=== PATIENT | female | born 1995 | race Caucasian/White ===

== ENCOUNTER 2021-02-14 08:33 | Outpatient (REF) | payer OTHER, MEDICAID, SELFPAY ==
--- NOTE | 2021-02-14 08:57 | ECG_ITS ---
Test Reason : TACHYCARDIA Blood Pressure : / mmHG Vent. Rate : 067 BPM Atrial Rate : 067 BPM P-R Int : 128 ms QRS Dur : 076 ms QT Int : 404 ms P-R-T Axes : 051 044 029 degrees QTc Int : 426 ms Normal sinus rhythm Normal ECG No previous ECGs available Referred By: Nory Montanez Electronically Signed By:MIRTA DIAZ
[2021-02-14 09:13] LABS: MANUAL DIFF FLAG NO
[2021-02-14 09:18] LABS: Basophils Percent Auto 0.6 % (0-2); Eosinophils Percent Auto 1.6 % (0-4); Hematocrit 43.1 % (37-47); Hemoglobin 14.1 g/dl (12.0-16.0); Imm Gran Abs Auto 0.01 X10*3/uL (0.00-0.03); Imm Gran Pct Auto 0.2 % (0.0-0.4); Lymphocytes Absolute Auto 2.1 X10*3/uL (1.2-4.9); Lymphocytes Percent Auto 42.6 % (20-40); Mean Corpuscular HGB Conc 32.7 g/dl (31.0-35.0); Mean Corpuscular Hemoglobin 30.5 pg (27.0-33.0); Mean Corpuscular Volume 93.3 fL (80-98); Mean Platelet Volume 10.6 fL (9.4-12.3); Monocytes Percent Auto 7.3 % (2-11); Neutrophils Absolute Auto 2.4 X10*3/uL (2.0-8.3); Neutrophils Percent Auto 47.7 % (45-73); Platelet Count 268 X10*3/uL (160-400); Red Blood Count 4.62 X10*6/uL (4.20-5.50); Red Cell Distribution Width 13.4 % (11.0-16.0); White Blood Count 4.9 X10*3/uL (4.8-10.8)
[2021-02-14 09:19] LABS: Eosinophils Absolute Auto 0.1 X10*3/uL (0.0-0.4); Monocytes Absolute Auto 0.4 X10*3/uL (0.1-1.2)
[2021-02-14 09:50] LABS: Alanine Aminotransferase 22 U/L (0-31); Albumin Level 4.8 g/dL (3.5-5.0); Alkaline Phosphatase 84 U/L (39-117); Anion Gap 12 (12-20); Aspartate Amino Transferase 13 U/L (5-31); Bilirubin Total 1.1 mg/dL (0.0-1.0); Blood Urea Nitrogen 8 mg/dL (9-16); Calcium 9.6 mg/dL (8.4-10.2); Carbon Dioxide 26 mmol/L (22-29); Chloride 109 mmol/L (96-108); Cholesterol 162 mg/dL; Estimated Glomerular Filt Rate > 60; Glucose Fasting 87 mg/dL (60-99); HDL Cholesterol 69 mg/dL; LDL Cholesterol Calculated 80 mg/dl; Potassium 4.5 mmol/L (3.3-5.1); Sodium 142 mmol/L (135-145); Total Protein 7.2 g/dL (6.5-8.0); Triglycerides 67 mg/dL
[2021-02-14 09:53] LABS: Thyroid Stimulating Hormone 1.58 uIU/mL (0.32-4.0)
[2021-02-19 12:42] LABS: Vitamin D 25-OH, D2 <4 ng/mL; Vitamin D 25-OH, D3 27 ng/mL; Vitamin D 25-OH, Total 27 ng/mL (30-100)
== END 2021-02-14 08:34 | disposition home or self-care (01) ==
LOC: HO.LAB 08:33
PROVIDERS: PCP Internal Medicine; Visit Provider Internal Medicine
DX: R00.0 Tachycardia, unspecified (principal); E55.9 Vitamin D deficiency, unspecified; E78.5 Hyperlipidemia, unspecified; D64.9 Anemia, unspecified
CPT/HCPCS: 36415; 80053; 80061; 82306; 84443; 85025; 93005

== ENCOUNTER 2021-06-15 12:58 | Outpatient (REF) | payer OTHER, SELFPAY | END 2021-06-15 12:59 | disposition home or self-care (01) | LOC: HO.LAB 12:58 | PROVIDERS: Visit Provider Internal Medicine | DX: Z20.822 Contact with and (suspected) exposure to COVID-19 (principal) | CPT/HCPCS: C9803; U0003; U0005 ==

== ENCOUNTER 2021-09-04 16:49 | Emergency (ER) | payer OTHER, MEDICAID, SELFPAY ==
[2021-09-04 16:51] VITALS: BP 109/73; PULSE 116; RESP 16; TEMP 36.9; O2SAT 98; BMI 26.6
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
== END 2021-09-04 17:45 | disposition home or self-care (01) ==
PROVIDERS: Absent Provider Internal Medicine; Emergency Provider Emergency Medicine Emergency Medical Services; PCP Internal Medicine
DX: T24.111A Burn of first degree of right thigh, initial encounter (principal); T31.0 Burns involving less than 10% of body surface; M79.652 Pain in left thigh; M79.651 Pain in right thigh; R00.0 Tachycardia, unspecified; X11.8XXA Contact with other hot tap-water, initial encounter; Y93.9 Activity, unspecified; Y92.9 Unspecified place or not applicable; Y99.9 Unspecified external cause status; Z79.899 Other long term (current) drug therapy; Z87.891 Personal history of nicotine dependence
CPT/HCPCS: 99283

== ENCOUNTER 2021-10-14 19:02 | Inpatient (IN) | payer OTHER, MEDICAID, SELFPAY ==
--- NOTE | ~2021-10-14 | US_ITS ---
EXAMINATION: US ABDOMEN LIMITED CLINICAL INFORMATION: Right upper quadrant pain. COMPARISON: None TECHNIQUE: Real-time imaging of the right upper quadrant abdominal viscera. FINDINGS: PANCREAS: The visualized portion of the pancreas head and body are normal, portion of the pancreatic body and tail, not visualized are obscured by bowel gas. LIVER: Normal. The liver is normal in size. The liver contour is normal. Parenchymal echogenicity is normal. No focal hepatic lesion. There is no intrahepatic biliary duct dilatation seen. GALLBLADDER: Gallbladder is packed with gallstones. There is thickening of gallbladder wall, no pericholecystic fluid, cannot entirely rule out the possibility of cholecystitis. COMMON BILE DUCT: Normal in caliber measuring 0.2 cm in diameter. RIGHT KIDNEY: Normal. No hydronephrosis. No renal calculi or focal parenchymal lesions. The kidney measures 11 cm in maximum dimension. FREE FLUID: None. US/US abdomen limited IMPRESSION: Gallbladder is packed with gallstones, there is thickening of gallbladder wall, cannot rule out the possibility of cholecystitis. Common bile duct however is normal 0.2 cm, there is also no pericholecystic fluid. Recommendation: May consider surgical evaluation and/or correlation with HIDA scan for further investigation. (Referring physician staff is being called, to be alerted of the above findings and recommendations.) EM
--- NOTE | ~2021-10-14 | US_ITS ---
EXAMINATION: ULTRASOUND DUPLEX ARTERIAL VENOUS CLINICAL INFORMATION: Abnormal liver function tests. COMPARISON: Grayscale images performed the same day and CT of the abdomen and pelvis 10/14/2021 TECHNIQUE: Doppler color and grayscale evaluation of the liver vasculature including waveform spectral analysis FINDINGS: The extrahepatic, main, right and left portal veins are patent with appropriate hepatopedal flow. The splenic vein is patent with appropriate hepatopedal flow. The right, left and middle hepatic veins are patent with normal waveforms. The IVC is patent with normal waveform. Arteries are patent. Main hepatic artery peak systolic velocity is normal measuring 49 cm/s. US/US duplex arterial venous comp IMPRESSION: Normal liver Doppler exam.
--- NOTE | ~2021-10-14 | CT_ITS ---
EXAMINATION: CT ABDOMEN AND PELVIS WITH CONTRAST CLINICAL INFORMATION: Right upper quadrant pain. Rule out stones CBD stones. COMPARISON: Ultrasound abdomen 10/14/2021 TECHNIQUE: Multidetector volumetric images were obtained from the superior aspect of the liver through the pubic symphysis following administration 85 mL of Omnipaque 350 intravenous contrast. Sagittal and coronal reformatted images were obtained on the technologist's workstation. Oral contrast: No This CT examination was performed using dose optimization techniques as appropriate, variously including the following: *Automated exposure control *Adjustment of mA and/or kV according to patient size (this includes techniques or standardized protocols for targeted exams where dose is matched to indication/reason for exam; i.e. extremities or head) *Use of iterative reconstruction technique DLP: 523 mGy-cm FINDINGS: LUNG BASES: The visualized lung bases are unremarkable. LIVER, GALLBLADDER, AND BILIARY TREE: The liver is normal in size, shape, and attenuation. No focal hepatic lesion or biliary ductal dilatation is present. There are several large gallstones with mild gallbladder wall thickening. The largest gallstone measures 2.2 cm. PANCREAS: Unremarkable. SPLEEN: Unremarkable. ADRENAL GLANDS: Unremarkable. KIDNEYS AND URETERS: The kidneys are normal in size, shape, and attenuation. No hydronephrosis, hydroureter, or calculi seen. No perinephric stranding. BLADDER: Unremarkable. GASTROINTESTINAL TRACT: There is scattered stool and gas seen throughout the colon without any significant distention. The small bowel loops are normal caliber. Appendix is not visualized ABDOMINAL WALL: No significant hernia is appreciated. LYMPH NODES: Normal. VASCULAR: Unremarkable. PELVIC VISCERA: Unremarkable. OSSEOUS STRUCTURES: Unremarkable. CT/CT abdomen pelvis w con IMPRESSION: Cholelithiasis with mild wall thickening. Similar findings were seen on ultrasound abdomen 10/14/2021. There is no intrahepatic or CBD ductal dilatation. Correlate with clinical exam for Acuity. Mild to moderate constipation without obstruction. Fleischner guidelines were followed.
--- NOTE | ~2021-10-14 | MR_ITS ---
EXAMINATION: MR CHOLANGIOPANCREATOGRAPHY CLINICAL INFORMATION: Abdominal pain. COMPARISON: CT of the abdomen and pelvis and right upper quadrant abdominal ultrasound done on 10/14/2021. TECHNIQUE: Multiplanar, multisequential noncontrast MR images of the abdomen/MRCP is obtained. FINDINGS: VISUALIZED LUNG BASES: Unremarkable. LIVER: No focal or diffuse liver abnormality identified. No evidence of any intrahepatic biliary ductal dilatation present. GALLBLADDER, BILIARY TREE: Solitary large approximately 2.3 cm maximum dimension gallstone is present. The sacrum the gallbladder is remarkable for multiple infoldings without evidence of any wall thickening or pericholecystic fluid. Cystic duct appear unremarkable. The common hepatic duct and common bile duct appear normal in caliber. Proximal common bile duct measures 2.6 cm. Specifically, no evidence of any intraductal filling defect to suspect choledocholithiasis seen. PANCREAS: Unremarkable on this nonenhanced study. Pancreatic duct is decompressed. SPLEEN: Unremarkable on this nonenhanced study. ADRENAL GLANDS AND KIDNEYS: There is no adrenal mass present on either side. Both kidneys appear symmetric and appears unremarkable this nonenhanced study. URETERS AND BLADDER: Visualized part of both ureters appear decompressed. The bladder was not included within the [id number] and accordingly not evaluated. BOWEL LOOPS: The visualized bowel loops appear decompressed. LYMPHOVASCULAR STRUCTURES: Unremarkable. MR/MR MRCP IMPRESSION: Solitary 2.3 cm maximum dimension gallstone is present without any MR evidence of acute cholecystitis or biliary obstruction. Specifically, the entire biliary tree is decompressed and no evidence of any choledocholithiasis present.
--- NOTE | ~2021-10-14 | NM_ITS ---
EXAMINATION: HIDA SCAN. CLINICAL INFORMATION: Elevated LFTs. Cholelithiasis. COMPARISON: None TECHNIQUE: Following intravenous administration of 5 mCi of 99m technetium mebrofenin, imaging over the right upper quadrant was obtained up to 60 minutes. FINDINGS: There is normal hepatic uptake with visualization of gallbladder by 34 minutes consistent with patent cystic duct. Small bowel is visualized by 36 minutes consistent with patent CBD. NM/NM hepatobiliary wo pharm IMPRESSION: Normal HIDA scan with patent cystic duct and patent common bile duct.
--- NOTE | ~2021-10-14 | US_ITS ---
EXAMINATION: US ABDOMEN COMPLETE CLINICAL INFORMATION: Right upper quadrant pain. COMPARISON: Prior study October 14, 2021 TECHNIQUE: Real-time imaging of the abdominal viscera. FINDINGS: PANCREAS: The visualized portion of the pancreas head and body are normal, portion of the pancreatic body and tail, not visualized are obscured by bowel gas. ABDOMINAL AORTA: The proximal, mid, and distal segments are normal in caliber. INFERIOR VENA CAVA: Visualized portions are normal. LIVER: Normal. The liver is normal in size. The liver contour is normal. Parenchymal echogenicity is normal. No focal hepatic lesion. There is no intrahepatic biliary duct dilatation seen. GALLBLADDER: There is no thickening of gallbladder wall, low attenuation suggesting wall edema, highly suspicious for acute cholecystitis. There is tenderness pressing on the gallbladder positive ultrasound Mariano sign. Multiple gallstones. COMMON BILE DUCT: Normal in caliber measuring 0.7 cm in diameter. RIGHT KIDNEY: Normal. No hydronephrosis. No renal calculi or focal parenchymal lesions. The kidney measures 11.3 cm in maximum dimension. Left kidney is unremarkable measuring 11.9 cm. Spleen homogeneous 12.7 cm. Borderline enlarged. FREE FLUID: None. US/US abdomen complete IMPRESSION: *ACUTE CHOLECYSTITIS, there are multiple gallstones, there is thickening of the gallbladder wall, there is wall edema, there is tenderness pressing on the gallbladder Mariano sign, mild dilatation of the common bile duct, these findings suggest acute cholecystitis. Urgent Surgical consultation warranted. *Borderline splenomegaly. (Referring physician staff is being called, to be alerted of the above findings and recommendations.) PRIYA
[2021-10-14 19:07] VITALS: BP 107/62; PULSE 78; RESP 19; TEMP 36.5; O2SAT 98; BMI 25.5
--- NOTE | 2021-10-14 19:09 | PC.NURSE ---
Took report from Meredith to assume care of PT.
[2021-10-14 19:16] LABS: MANUAL DIFF FLAG NO
[2021-10-14 19:17] LABS: Basophils Percent Auto 0.8 % (0-2); Eosinophils Absolute Auto 0.1 X10*3/uL (0.0-0.4); Eosinophils Percent Auto 2.5 % (0-4); Hematocrit 40.7 % (37.0-47.0); Hemoglobin 13.6 g/dl (12.0-16.0); Imm Gran Abs Auto 0.01 X10*3/uL (0.00-0.03); Imm Gran Pct Auto 0.3 % (0.0-0.4); Lymphocytes Absolute Auto 1.2 X10*3/uL (1.2-4.9); Lymphocytes Percent Auto 33.3 % (20-40); Mean Corpuscular HGB Conc 33.4 g/dl (31.0-35.0); Mean Corpuscular Hemoglobin 30.8 pg (27.0-33.0); Mean Corpuscular Volume 92.1 fL (80.0-98.0); Monocytes Absolute Auto 0.4 X10*3/uL (0.1-1.2); Monocytes Percent Auto 11.2 % (2-11); Neutrophils Absolute Auto 1.9 x10*3/uL (2.0-8.3); Neutrophils Percent Auto 51.9 % (45-73); Platelet Count 238 X10*3/uL (160-400); Red Blood Count 4.42 X10*6/uL (4.20-5.50); Red Cell Distribution Width 13.2 % (11.0-16.0); White Blood Count 3.7 X10*3/uL (4.8-10.8)
[2021-10-14 19:28] LABS: Appearance Urine CLOUDY; Color Urine YELLOW; Glucose Urine UA NEG (NEG); Leukocyte Esterase Urine NEG (NEG); Nitrite Urine NEG (NEG); UACC Culture Trigger NO; Urine Blood 3+ (NEG); Urine Ketones 5 MG/DL (NEG); Urine Protein 1+ MG/DL (NEG-TRACE)
[2021-10-14 19:31] LABS: UPreg QC Valid YES; Urine Pregnancy NEGATIVE (NEGATIVE)
[2021-10-14 19:33] LABS: RBC Urine TNTC /HPF (0); WBC Urine 0-2 /HPF (0-4)
[2021-10-14 19:34] LABS: Amorphous Sediment Urine 2+ /LPF; Bacteria Urine TRACE /LPF
[2021-10-14 19:36] LABS: Alanine Aminotransferase 1490 U/L (0-31); Albumin Level 4.4 g/dL (3.5-5.0); Alkaline Phosphatase 150 U/L (39-117); Anion Gap 9 (12-20); Aspartate Amino Transferase 976 U/L (5-31); Bilirubin Total 3.2 mg/dL (0.0-1.0); Blood Urea Nitrogen 9 mg/dL (9-16); Calcium 9.7 mg/dL (8.4-10.2); Carbon Dioxide 30 mmol/L (22-29); Chloride 107 mmol/L (96-108); Creatinine Clr Calc Pharmacy 111.1; Estimated Glomerular Filt Rate > 60; Glucose Random 96 mg/dL (60-115); Potassium 3.9 mmol/L (3.3-5.1); Sodium 142 mmol/L (135-145)
[2021-10-14 19:42] LABS: Lipase 21 U/L (8-78)
[2021-10-14 20:05] VITALS: BP 106/69; PULSE 75; RESP 18; O2SAT 99
[2021-10-14 20:11] LABS: COVID-19 Test Negative (Negative); IDNOW Serial# 16C4AD1C
[2021-10-14 20:12] LABS: Influenza A Negative (Negative); Influenza B2 Negative (Negative)
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
[2021-10-14 20:32] VITALS: RESP 14
[2021-10-14] MEDS: Morphine Sulfate 4 MG/ML CARTRIDGE IVPUSH (20:32)
[2021-10-14] MEDS: 0.9 % Sodium Chloride 1,000 ML 999 ML IV (20:32)
[2021-10-14] MEDS: ondansetron HCL 4 MG/2 ML VIAL IVPUSH (20:32)
[2021-10-14] MEDS: iohexoL 350 MG/ML 100 ML INFUS..BTL IV (21:23)
--- NOTE | 2021-10-14 21:44 | PC.NURSE ---
Pt resting, pain/nausea resolving with morphine and zofran.
[2021-10-14 23:01] VITALS: BP 101/64; PULSE 68; RESP 18; TEMP 36.4; O2SAT 100
[2021-10-14] MEDS: Piperacillin Sodium/Tazobactam 3.375 GM in 0.9 % Sodium Chloride 50 ML IV (23:46)
--- NOTE | 2021-10-14 23:54 | P.HPHOSP_ITS ---
History of Present Illness Date of Service: 10/14/21 Chief Complaint: abd pain 26-year-old female with no significant past medical history presents to the hospital with complaints of epigastric and right upper quadrant abdominal pain. Patient reports that she has had this intermittent pain after eating heavy fatty foods but usually resolves after she takes Pepto-Bismol. Last night the pain started after she had dominoes. Pain is epigastric, 9/10, radiating to the right upper quadrant, as well as right-sided back, she reports nausea with no vomiting and has been feeling very weak and nauseous all day today with low oral intake, therefore decided to come to the hospital. Patient reports no chest pain no shortness of breath, no cough, no urinary symptoms and no lower extremity edema. On arrival to the ED patient hemodynamically stable with no significant abnormal vitals Labs are significant for BC count of 3.7, total bilirubin of 3.2, AST of 976, ALT of 14 90, alk-phos of 150, UA is negative for any infection, lipase of 21, Salicylate of less than 0.5, an estimate of in less than 1, abdominal ultrasound shows gallbladder is packed with gallstones, others thickening of gallbladder wall get rule out the possibility of cholecystitis Abdominal pelvic CT shows cholelithiasis with mild wall thickening similar findings were seen on ultrasound, no intrahepatic or CBD ductal dilatation, GI and general surgery consult patient will be admitted for further management Review of Systems Review of Systems: Yes all other systems are reviewed and are negative [facility] Medical History GERD (gastroesophageal reflux disease) Meniere's disease of right ear Mild major depression, single episode Tachycardia Family History Mother Arthritis Father No problems noted. Surgical History History of appendectomy Previous section Social History Housing: Apartment Alcohol intake: current Alcohol intake frequency: holidays/special occasions only Patient Tobacco Use Status: Former Tobacco user Tobacco use type: Cigarette Smoked in Last 30 Days: No e-Cigarette/Vaping Use: Never Used Second Hand Smoke Exposure: No Use of substances other than those prescribed or required for medical reasons: No Any prior treatment program specific to substance use: No Advance Directives: No Advance Directives Information Provided: No service: No Current occupational status: employed and unemployed Current occupational exposures/hazards: No Meds Allergies Allergy/AdvReac Type Severity Reaction Status Date / Time ciprofloxacin [From CIPRO] Allergy Intermediate TACHYCARDIA Verified 07/12/21 11:02 Sulfa (Sulfonamide Allergy Intermediate shortness Verified 07/12/21 11:02 Antibiotics) of breath sulfamethoxazole Allergy Unknown Verified 10/14/21 19:10 [From Bactrim] trimethoprim [From Bactrim] Allergy Unknown Verified 10/14/21 19:10 fish/shellfish Allergy Severe anaphylaxis Uncoded 04/21/21 13:27 SEAFOOD Allergy Severe ANAPHALXYS Uncoded 04/21/21 13:27 Active Medications: Current Medications Piperacillin Sod/Tazobactam (Sod 3.375 gm/ Sodium Chloride) 50 mls @ 100 mls/hr IV ONCE ONE Stop: 10/15/21 00:04 Last Admin: 10/14/21 23:46 Dose: 100 mls/hr Documented by: Pharmacy Consult (Consult Rx Perform Med Rec) 1 each MISCELLANE ONCE PRN PRN Reason: Consult order Physical Exam Vital Signs and Narrative: Vital Signs: Last Vital Signs Temp 97.6 F 10/14/21 23:01 Pulse 68 10/14/21 23:01 Resp 18 10/14/21 23:01 BP 101/64 10/14/21 23:01 Pulse Ox 100 10/14/21 23:01 BMI result Body Mass Index 25.5 Const: General: cooperative and no acute distress Orientation/consciousness: patient oriented x3 Eyes: General: appearance normal, both eyes and all related structures Pupils: Equal, round and reactive pupils present Resp: Effort & Inspection: normal respiratory effort Auscultation: clear to auscultation bilaterally Cardio: Rate: regular rate Rhythm: regular rhythm GI: Other: Abdomen is soft, tender in the right upper quadrant Mariano sign positive Skin: General skin exam: no rashes or lesions noted Neuro: General: patient oriented x3 Cranial nerves: Yes Equal, round and reactive pupils present Cognition (Neuro): normal cognition Extrem: General: Yes normal to inspection and Yes no pedal edema Results Labs CBC and Chem 7: 10/14/21 19:10 10/14/21 19:10 Labs: Laboratory Results - last 24 hr 10/14/21 10/14/21 10/14/21 19:10 19:10 19:15 MCV 92.1 MCH 30.8 MCHC 33.4 RDW 13.2 Plt Count 238 MPV 10.0 Immature Gran % (Auto) 0.3 Neut % (Auto) 51.9 Lymph % (Auto) 33.3 [place] % (Auto) 11.2 H Eos % (Auto) 2.5 Baso % (Auto) 0.8 Lymph # (Auto) 1.2 [place] # (Auto) 0.4 Eos # (Auto) 0.1 Baso # (Auto) 0.0 Abs Immat Gran (auto) 0.01 Absolute Neuts (auto) 1.9 L Absolute Nucleated RBC 0.000 Nucleated RBC % (auto) 0.0 Anion Gap 9 L Estim Creat Clear Calc 111.1 Estimated GFR > 60 Random Glucose 96 Calcium 9.7 Total Bilirubin 3.2 H AST 976 H ALT 1490 H Alkaline Phosphatase 150 H D Total Protein 7.0 Albumin 4.4 Lipase 21 Urine Color YELLOW Urine Appearance CLOUDY Urine pH 7.0 Ur Specific [place] 1.020 Urine Protein 1+ H Urine Glucose (UA) NEG Urine Ketones 5 Urine Blood 3+ H Urine Nitrite NEG Ur Leukocyte Esterase NEG Urine RBC TNTC H Urine WBC 0-2 Ur Squamous Epith Cells NONE Amorphous Sediment 2+ Urine Bacteria TRACE Urine Test COVID-19 (EDWINA) COVID-19 Clin Com Influenza Type A (JOLYNN) Influenza Type B (JOLYNN) Influenza A & B Note 10/14/21 10/14/21 10/14/21 19:15 19:49 19:49 MCV MCH MCHC RDW Plt Count MPV Immature Gran % (Auto) Neut % (Auto) Lymph % (Auto) [place] % (Auto) Eos % (Auto) Baso % (Auto) Lymph # (Auto) [place] # (Auto) Eos # (Auto) Baso # (Auto) Abs Immat Gran (auto) Absolute Neuts (auto) Absolute Nucleated RBC Nucleated RBC % (auto) Anion Gap Estim Creat Clear Calc Estimated GFR Random Glucose Calcium Total Bilirubin AST ALT Alkaline Phosphatase Total Protein Albumin Lipase Urine Color Urine Appearance Urine pH Ur Specific [place] Urine Protein Urine Glucose (UA) Urine Ketones Urine Blood Urine Nitrite Ur Leukocyte Esterase Urine RBC Urine WBC Ur Squamous Epith Cells Amorphous Sediment Urine Bacteria Urine Test NEGATIVE COVID-19 (EDWINA) Negative COVID-19 Clin Com See Note Influenza Type A (JOLYNN) Negative Influenza Type B (JOLYNN) Negative Influenza A & B Note See Note Imaging Radiologist's Impressions: Impressions Abdomen Ultrasound 10/14/21 20:31 IMPRESSION: Gallbladder is packed with gallstones, there is thickening of gallbladder wall, cannot rule out the possibility of cholecystitis. Common bile duct however is normal 0.2 cm, there is also no pericholecystic fluid. Recommendation: May consider surgical evaluation and/or correlation with HIDA scan for further investigation. (Referring physician staff is being called, to be alerted of the above findings and recommendations.) EM Abdomen/Pelvis CT 10/14/21 21:23 IMPRESSION: Cholelithiasis with mild wall thickening. Similar findings were seen on ultrasound abdomen 10/14/2021. There is no intrahepatic or CBD ductal dilatation. Correlate with clinical exam for Acuity. Mild to moderate constipation without obstruction. Fleischner guidelines were followed. Assessment and Plan (1) Cholelithiasis: Status: Acute (2) Transaminitis: Status: Acute (3) Abdominal pain: Status: Acute (4) Cholecystitis: Status: Acute Plan 26-year-old female with no significant past medical history presents to the hospital with abdominal pain found to have transaminitis as well as evidence of cholecystitis # acute cholecystitis - has right upper quadrant pain, pain following fatty food, Mariano sign positive - evidence of gallbladder wall thickness on ultrasound as well as cholelithiasis - will treat with Zosyn - follow cultures - general surgery consulted and informed # transaminitis - although bleed multifactorial - secondary to biliary disease in the setting of cholecystitis as well as poss ible underlying liver disease although less likely - hepatitis panel pending, Tylenol and as salicylate levels normal - follow CMP DVT prophylaxis: SCDs patient of possible surgical intervention Patient requires minimal 2 night hospital stay for IV antibiotics and possible need for surgical intervention Quality Stroke Does the patient have a stroke diagnosis?: No VTE Prior VTE?: No VTE Risk Level:: Medical - moderate - high VTE Device Contraindication: N/A - Device Ordered VTE Drug Contraindication: Treatment Not Indicated
[2021-10-15] VITALS (7 sets, daily range): BP systolic 96–148; BP diastolic 62–78; PULSE 61–78; RESP 14–20; TEMP 36.2–37.1; O2SAT 96–100
[2021-10-15] MEDS: 0.9 % Sodium Chloride 1,000 ML 100 ML IVCONT ×2 (00:26→20:08)
[2021-10-15] MEDS: Morphine Sulfate 4 MG/ML CARTRIDGE IVPUSH (00:26)
[2021-10-15 01:30] LABS: Acetaminophen LAB < 1 mcg/mL (<30); Salicylate < 5.0 mg/dL (15-30)
[2021-10-15 06:04] LABS: MANUAL DIFF FLAG NO
[2021-10-15 06:17] LABS: Basophils Percent Auto 0.7 % (0-2); Eosinophils Absolute Auto 0.1 X10*3/uL (0.0-0.4); Eosinophils Percent Auto 3.5 % (0-4); Hematocrit 34.6 % (37.0-47.0); Hemoglobin 11.3 g/dl (12.0-16.0); Lymphocytes Absolute Auto 1.5 X10*3/uL (1.2-4.9); Lymphocytes Percent Auto 50.7 % (20-40); Mean Corpuscular HGB Conc 32.7 g/dl (31.0-35.0); Mean Corpuscular Hemoglobin 31.1 pg (27.0-33.0); Mean Corpuscular Volume 95.3 fL (80.0-98.0); Mean Platelet Volume 10.6 fL (9.4-12.3); Monocytes Absolute Auto 0.3 X10*3/uL (0.1-1.2); Monocytes Percent Auto 10.4 % (2-11); Neutrophils Percent Auto 34.7 % (45-73); Platelet Count 190 X10*3/uL (160-400); Red Blood Count 3.63 X10*6/uL (4.20-5.50); Red Cell Distribution Width 13.2 % (11.0-16.0); White Blood Count 2.9 X10*3/uL (4.8-10.8)
[2021-10-15] MEDS: Piperacillin Sodium/Tazobactam 3.375 GM in 0.9 % Sodium Chloride 50 ML IV ×3 (06:24→20:08)
[2021-10-15 06:45] LABS: Alanine Aminotransferase 944 U/L (0-31); Albumin Level 3.6 g/dL (3.5-5.0); Alkaline Phosphatase 124 U/L (39-117); Anion Gap 8 (12-20); Aspartate Amino Transferase 451 U/L (5-31); Bilirubin Total 1.7 mg/dL (0.0-1.0); Blood Urea Nitrogen 9 mg/dL (9-16); Calcium 8.1 mg/dL (8.4-10.2); Carbon Dioxide 26 mmol/L (22-29); Chloride 113 mmol/L (96-108); Creatinine Clr Calc Pharmacy 124.8; Estimated Glomerular Filt Rate > 60; Glucose Random 84 mg/dL (60-115); Potassium 3.8 mmol/L (3.3-5.1); Sodium 143 mmol/L (135-145); Total Protein 5.5 g/dL (6.5-8.0)
--- NOTE | 2021-10-15 07:48 | HO.PM.IMPN ---
Subjective Subjective Date of Service: 10/15/21 Interval History: acute cholecystitis Review of Systems Still has significant abdominal pain, but denies any vomiting has nausea. She said she vomiting at home. Decreased p.o. intake. Physical Exam Vital Signs: Vital Signs: Last Vital Signs Temp 97.4 F 10/15/21 07:41 Pulse 74 10/15/21 07:41 Resp 20 10/15/21 07:41 BP 114/67 10/15/21 07:41 Pulse Ox 100 10/15/21 07:41 BMI result Body Mass Index 25.5 Appearance: Alert.? Oriented X3.? not in distress.? Eyes: Pupils equal, round and reactive to light.? Sclera nonicteric.? ENT: Pharynx normal.? Moist mucous membranes. cvs: rrr, [id number] , no murmur res: clear to auscultation ,no rhonchii or wheezing abd: no rebound or guarding ,ruq pain, bs present. ext pulses present , no cyanosis . neuro: axo3 , nonfocal. Objective Data Active Medications Acetaminophen (Acetaminophen 325 Mg Tablet) 650 mg PO Q6H PRN PRN Reason: Pain, Mild (Pain Scale 1-3) Piperacillin Sod/Tazobactam (Sod 3.375 gm/ Sodium Chloride) 50 mls @ 100 mls/hr IV Q6H [facility] Last Admin: 10/15/21 06:24 Dose: 100 mls/hr Documented by: NICKY Sodium Chloride (Ns) 1,000 mls @ 100 mls/hr IVCONT .Q10H [facility] Last Admin: 10/15/21 00:26 Dose: 100 mls/hr Documented by: TJ Morphine Sulfate (Morphine Sulfate 4 Mg/Ml Cartridge) 4 mg IVPUSH Q4H PRN; Protocol PRN Reason: Pain, Severe (Pain Scale 7-10) Last Admin: 10/15/21 00:26 Dose: 4 mg Documented by: TJ Ondansetron HCl (Ondansetron Hcl 4 Mg/2 Ml Vial) 4 mg IVPUSH Q8H PRN PRN Reason: Nausea and Vomiting Pharmacy Consult (Consult Rx Perform Med Rec) 1 each MISCELLANE ONCE PRN PRN Reason: Consult order Sodium Chloride (0.9 % Sodium Chloride Flush 3 Ml Syringe) 3 ml IVFLUSH QSHIFT [facility] Last Admin: 10/15/21 00:32 Dose: Not Given Documented by: TJ Non-Admin Reason: Pt getting 1 L ns @100ml/hr Labs CBC & Chem 7: 10/15/21 05:49 10/15/21 05:49 Labs: Laboratory Results - last 24 hr 10/14/21 10/14/21 10/14/21 19:10 19:10 19:15 MCV 92.1 MCH 30.8 MCHC 33.4 RDW 13.2 Plt Count 238 MPV 10.0 Immature Gran % (Auto) 0.3 Neut % (Auto) 51.9 Lymph % (Auto) 33.3 [place] % (Auto) 11.2 H Eos % (Auto) 2.5 Baso % (Auto) 0.8 Lymph # (Auto) 1.2 [place] # (Auto) 0.4 Eos # (Auto) 0.1 Baso # (Auto) 0.0 Abs Immat Gran (auto) 0.01 Absolute Neuts (auto) 1.9 L Absolute Nucleated RBC 0.000 Nucleated RBC % (auto) 0.0 Anion Gap 9 L Estim Creat Clear Calc 111.1 Estimated GFR > 60 Random Glucose 96 Calcium 9.7 Total Bilirubin 3.2 H AST 976 H ALT 1490 H Alkaline Phosphatase 150 H D Total Protein 7.0 Albumin 4.4 Lipase 21 Urine Color YELLOW Urine Appearance CLOUDY Urine pH 7.0 Ur Specific [place] 1.020 Urine Protein 1+ H Urine Glucose (UA) NEG Urine Ketones 5 Urine Blood 3+ H Urine Nitrite NEG Ur Leukocyte Esterase NEG Urine RBC TNTC H Urine WBC 0-2 Ur Squamous Epith Cells NONE Amorphous Sediment 2+ Urine Bacteria TRACE Urine Test Salicylates Acetaminophen COVID-19 (EDWINA) COVID-19 Clin Com Influenza Type A (JOLYNN) Influenza Type B (JOLYNN) Influenza A & B Note 10/14/21 10/14/21 10/14/21 19:15 19:49 19:49 MCV MCH MCHC RDW Plt Count MPV Immature Gran % (Auto) Neut % (Auto) Lymph % (Auto) [place] % (Auto) Eos % (Auto) Baso % (Auto) Lymph # (Auto) [place] # (Auto) Eos # (Auto) Baso # (Auto) Abs Immat Gran (auto) Absolute Neuts (auto) Absolute Nucleated RBC Nucleated RBC % (auto) Anion Gap Estim Creat Clear Calc Estimated GFR Random Glucose Calcium Total Bilirubin AST ALT Alkaline Phosphatase Total Protein Albumin Lipase Urine Color Urine Appearance Urine pH Ur Specific [place] Urine Protein Urine Glucose (UA) Urine Ketones Urine Blood Urine Nitrite Ur Leukocyte Esterase Urine RBC Urine WBC Ur Squamous Epith Cells Amorphous Sediment Urine Bacteria Urine Test NEGATIVE Salicylates Acetaminophen COVID-19 (EDWINA) Negative COVID-19 Clin Com See Note Influenza Type A (JOLYNN) Negative Influenza Type B (JOLYNN) Negative Influenza A & B Note See Note 10/15/21 10/15/21 10/15/21 01:03 05:49 05:49 MCV 95.3 MCH 31.1 MCHC 32.7 RDW 13.2 Plt Count 190 MPV 10.6 Immature Gran % (Auto) 0.0 Neut % (Auto) 34.7 L Lymph % (Auto) 50.7 H [place] % (Auto) 10.4 Eos % (Auto) 3.5 Baso % (Auto) 0.7 Lymph # (Auto) 1.5 [place] # (Auto) 0.3 Eos # (Auto) 0.1 Baso # (Auto) 0.0 Abs Immat Gran (auto) 0.00 Absolute Neuts (auto) 1.0 L Absolute Nucleated RBC 0.000 Nucleated RBC % (auto) 0.0 Anion Gap 8 L Estim Creat Clear Calc 124.8 Estimated GFR > 60 Random Glucose 84 Calcium 8.1 L D Total Bilirubin 1.7 H AST 451 H ALT 944 H Alkaline Phosphatase 124 H Total Protein 5.5 L D Albumin 3.6 Lipase Urine Color Urine Appearance Urine pH Ur Specific [place] Urine Protein Urine Glucose (UA) Urine Ketones Urine Blood Urine Nitrite Ur Leukocyte Esterase Urine RBC Urine WBC Ur Squamous Epith Cells Amorphous Sediment Urine Bacteria Urine Test Salicylates < 5.0 L Acetaminophen < 1 COVID-19 (EDWINA) COVID-19 Clin Com Influenza Type A (JOLYNN) Influenza Type B (JOLYNN) Influenza A & B Note Assessment and Plan (1) Cholecystitis: Status: Acute (2) Abdominal pain: Status: Acute Plan 26-year-old female with no significant past medical history presents to the hospital with abdominal pain found to have transaminitis as well as evidence of cholecystitis acute cholecystitis - has right upper quadrant pain, pain following fatty food, Mariano sign positive - evidence of gallbladder wall thickness on ultrasound as well as cholelithiasis - will treat with Zosyn,follow cultures - general surgery consulted -added mrcp. transaminitis - although bleed multifactorial - secondary to biliary disease in the setting of cholecystitis as well as possible underlying liver disease although less likely - hepatitis panel pending, Tylenol and as salicylate levels normal - follow CMP DVT prophylaxis:? SCDs patient of possible surgical intervention Quality Stroke Does the patient have a stroke diagnosis?: No VTE Prior VTE?: No VTE Risk Level:: Medical - moderate - high VTE Device Contraindication: N/A - Device Ordered VTE Drug Contraindication: Treatment Not Indicated
[2021-10-15] MEDS: Acetaminophen 325 MG TABLET 650 MG PO (09:20)
--- NOTE | 2021-10-15 09:41 | MHC.CM.PN ---
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
--- NOTE | 2021-10-15 11:00 | PM.GICN ---
History of Present Illness Data of Consult Service Date: 10/15/21 Requesting physician: Anoop Bear Primary Care Provider: Nory Montanez MD HPI Reason for consult: abdo pain, abn LFT 26-year-old female with hx of appendectomy, depression, and c section who I am seeing for assessment for abdominal pain and abn LFT. She had 9/10 colicky epigastric pain (like labor pain ) after eating Pizza 1 d ago with radiation to RUQ and into the back, no relieving factors, . Associated with nausea, poor appetite and malaise but no fever or vomiting. denies chest pain and no shortness of breath, no cough, no urinary symptoms. No jaundice. She has had recurrent bouts of pain like this in the past after eating fatty meals but usu resolved with pepto-bismol which did not help this time. Labs revealed total bilirubin of 3.2, AST of 976, ALT of 14 90, alk-phos of 150, nml lipase. acetaminophen level was neg. Imaging: abdominal ultrasound: gallbladder packed with gallstones, thickening of gallbladder wall Abdominal pelvic CT: cholelithiasis, no intrahepatic or CBD ductal dilatation, Review of Systems Review of Systems: Constitutional : No Weight loss, No Fever, No Chills ENT/Mouth : No sore throat, No Rhinorrhea Eyes: No Swelling, No Redness Cardiovascular : No Chest Pain, No SOB, No Edema Respiratory : No Cough, No Sputum, No Wheezing Gastrointestinal : see HPI Genitourinary : NO Dysuria, No Urinary Frequency, No Hematuria, No Urgency Musculoskeletal : No joint pain, No Myalgias, No Joint Swelling Skin : No Skin Lesions, No rash Neuro : No Weakness, No Numbness, No Dizziness, No Headache Psych : No Anxiety/Panic, No Depression Heme/Lymph: No Bruising, No Lymphadenopathy Endocrine : No Polyuria, No Polydipsia All other systems reviewed and are negative. [facility] Past Medical History Medical History GERD (gastroesophageal reflux disease) Meniere's disease of right ear Mild major depression, single episode Tachycardia Family History Family History Mother Arthritis Father No problems noted. Surgical History Surgical History History of appendectomy Previous section Social History Social History Household Members: Unknown / Unable to assess Housing: Unknown / Unable to assess Do you presently have visiting nurse or other home services: No Unable to assess alcohol history related to: Unknown Alcohol intake: current Alcohol intake frequency: holidays/special occasions only Patient Tobacco Use Status: Former Tobacco user Tobacco use type: Cigarette e-Cigarette/Vaping Use: Never Used Second Hand Smoke Exposure: No service: No Current occupational status: employed Current occupational exposures/hazards: No Meds Allergies Allergy/AdvReac Type Severity Reaction Status Date / Time ciprofloxacin [From CIPRO] Allergy Intermediate TACHYCARDIA Verified 07/12/21 11:02 Sulfa (Sulfonamide Allergy Intermediate shortness Verified 07/12/21 11:02 Antibiotics) of breath sulfamethoxazole Allergy Unknown Verified 10/14/21 19:10 [From Bactrim] trimethoprim [From Bactrim] Allergy Unknown Verified 10/14/21 19:10 fish/shellfish Allergy Severe anaphylaxis Uncoded 04/21/21 13:27 SEAFOOD Allergy Severe ANAPHALXYS Uncoded 04/21/21 13:27 Active Medications: Current Medications Acetaminophen (Acetaminophen 325 Mg Tablet) 650 mg PO Q6H PRN PRN Reason: Pain, Mild (Pain Scale 1-3) Last Admin: 10/15/21 09:20 Dose: 650 mg Documented by: Piperacillin Sod/Tazobactam (Sod 3.375 gm/ Sodium Chloride) 50 mls @ 100 mls/hr IV [facility] Last Infusion: 10/15/21 10:16 Dose: Infused Documented by: Sodium Chloride (Ns) 1,000 mls @ 100 mls/hr IVCONT .Q10H [facility] Last Admin: 10/15/21 00:26 Dose: 100 mls/hr Documented by: Morphine Sulfate (Morphine Sulfate 4 Mg/Ml Cartridge) 4 mg IVPUSH Q4H PRN; Protocol PRN Reason: Pain, Severe (Pain Scale 7-10) Last Admin: 10/15/21 00:26 Dose: 4 mg Documented by: Ondansetron HCl (Ondansetron Hcl 4 Mg/2 Ml Vial) 4 mg IVPUSH Q8H PRN PRN Reason: Nausea and Vomiting Pharmacy Consult (Consult Rx Perform Med Rec) 1 each MISCELLANE ONCE PRN PRN Reason: Consult order Sodium Chloride (0.9 % Sodium Chloride Flush 3 Ml [facility]) [facility] Last Admin: 10/15/21 09:14 Dose: Not Given Documented by: Home Medications Medication Instructions Recorded Confirmed Last Taken Type No Known Home Meds 10/15/21 10/15/21 Unknown History Physical Exam Vital Signs: Vital Signs: Last Vital Signs Temp 97.4 F 10/15/21 07:41 Pulse 74 10/15/21 07:41 Resp 20 10/15/21 07:41 BP 114/67 10/15/21 07:41 Pulse Ox 100 10/15/21 07:41 BMI result Body Mass Index 25.5 Const: General: cooperative and no acute distress Orientation/consciousness: patient oriented x3 Eyes: General: appearance normal, both eyes and all related structures Pupils: Equal, round and reactive pupils present Resp: Effort & Inspection: normal respiratory effort Auscultation: clear to auscultation bilaterally Cardio: Rate: regular rate Rhythm: regular rhythm GI: Other: Abdomen is soft, tender in the right upper quadrant Mariano sign positive Inspection: Yes normal to inspection Palpation (GI): Soft to palpation Auscultation: normal bowel sounds Skin: General skin exam: no rashes or lesions noted Neuro: General: patient oriented x3 Cranial nerves: Yes Equal, round and reactive pupils present Cognition (Neuro): normal cognition Extrem: General: Yes normal to inspection and Yes no pedal edema Psych: Appearance: grossly normal Results Labs CBC & Chem 7: 10/15/21 05:49 10/15/21 05:49 Labs: Short CBC 10/14/21 10/15/21 Range/Units 19:10 05:49 WBC 3.7 L 2.9 L (4.8-10.8) X10*3/uL Hgb 13.6 11.3 L (12.0-16.0) g/dl Hct 40.7 34.6 L (37.0-47.0) % Plt Count 238 190 (160-400) X10*3/uL BMP 10/14/21 10/15/21 19:10 05:49 Sodium 142 143 Potassium 3.9 3.8 Chloride 107 113 H Carbon Dioxide 30 H 26 BUN 9 9 Creatinine 0.82 0.73 Calcium 9.7 8.1 L D Liver Function 10/14/21 10/15/21 Range/Units 19:10 05:49 Total Bilirubin 3.2 H 1.7 H (0.0-1.0) mg/dL AST 976 H 451 H (5-31) U/L ALT 1490 H 944 H (0-31) U/L Alkaline Phosphatase 150 H D 124 H (39-117) U/L Albumin 4.4 3.6 (3.5-5.0) g/dL Urine 10/14/21 Range/Units 19:15 Urine Color YELLOW Urine Appearance CLOUDY Urine pH 7.0 (5.0-8.0) Ur Specific [place] 1.020 (1.005-1.025) Urine Protein 1+ H (NEG-TRACE) MG/DL Urine Glucose (UA) NEG (NEG) MG/DL Imaging CT scan - abdomen: Attestation: I personally reviewed and interpreted this imaging study as follows: (gallstones, thickened GB, fluid around GB) Assessment and Plan (1) Cholecystitis: Status: Acute (2) Abdominal pain: Status: Acute Plan 1/ hx is most consistent with cholecystitis, LFT are high but can be seen if there is contiguous norman hepatic inflammation from the gallbladder. Other possibility would be Mirizzi syndrome, or choledocholithiasis passing thru the CBD, but CBD diameter is normal making this unlikely. less likely ddx; AIH< budd chiari syndrome, acute wilsons disease, infectious hepatitis PLAN: 1/ HIDA scan 2/ if neg then further work up with serologies, maybe MRCP 3/ Hep A,B,C serologies are pending Procedures Date of Service Date of Service: 10/15/21
--- NOTE | 2021-10-15 14:11 | PM.CNGS ---
History of Present Illness Consult details Consult date: 10/15/21 Requesting physician: Anoop Bear Narrative: The pt is a 26 year old female who came in to [facility] ER yesterday with abdominal pain and nausea after eating some pizza the night before. the pt denies knowing that she has gallbladder issues but has had symptoms somewhat consistent with biliary colic in the past. Here a CT scan showed ? thickening of the GB wall and multiple stones, no fluids no ductal dilatation. Ultrasound then showed large stone no ductal dilatation some thickness of the wall but no fluid. The pts labs were remarkable for elevated LFTs quite significant and normal wbc or slightly low. She had tenderness in the ruq. She works as a dental hygenist and she was stuck by a dirty needle about 1-2 months ago, the pt was reported to be clean . She did have Hep B titers checked about a year ago and they were low and she was told she would need a booster but that never happened. She has been eating all types of food but denies having anything unusual or suspicious. pt recently was treated for a uti and it seems she may have had 1 week of macrobid/macrodantin - shes going to check to see which med. she denies taking any tylenol or asa etc anytime in the last few months. Review of Systems Review of Systems: Yes all other systems are reviewed and are negative PMFSH Past Medical History Medical History GERD (gastroesophageal reflux disease) Meniere's disease of right ear Mild major depression, single episode Tachycardia Family History Family History Mother Arthritis Father No problems noted. Surgical History Surgical History History of appendectomy Previous section Social History Social History Household Members: Unknown / Unable to assess Housing: Unknown / Unable to assess Do you presently have visiting nurse or other home services: No Unable to assess alcohol history related to: Unknown Alcohol intake: current Alcohol intake frequency: holidays/special occasions only Patient Tobacco Use Status: Former Tobacco user Tobacco use type: Cigarette e-Cigarette/Vaping Use: Never Used Second Hand Smoke Exposure: No service: No Current occupational status: employed Current occupational exposures/hazards: No Meds Allergies Allergy/AdvReac Type Severity Reaction Status Date / Time ciprofloxacin [From CIPRO] Allergy Intermediate TACHYCARDIA Verified 07/12/21 11:02 Sulfa (Sulfonamide Allergy Intermediate shortness Verified 07/12/21 11:02 Antibiotics) of breath sulfamethoxazole Allergy Unknown Verified 10/14/21 19:10 [From Bactrim] trimethoprim [From Bactrim] Allergy Unknown Verified 10/14/21 19:10 fish/shellfish Allergy Severe anaphylaxis Uncoded 04/21/21 13:27 SEAFOOD Allergy Severe ANAPHALXYS Uncoded 04/21/21 13:27 Active Medications: Current Medications Acetaminophen (Acetaminophen 325 Mg Tablet) 650 mg PO Q6H PRN PRN Reason: Pain, Mild (Pain Scale 1-3) Last Admin: 10/15/21 09:20 Dose: 650 mg Documented by: Piperacillin Sod/Tazobactam (Sod 3.375 gm/ Sodium Chloride) 50 mls @ 100 mls/hr IV Q6H [facility] Last Infusion: 10/15/21 10:16 Dose: Infused Documented by: Sodium Chloride (Ns) 1,000 mls @ 100 mls/hr IVCONT .Q10H [facility] Last Admin: 10/15/21 00:26 Dose: 100 mls/hr Documented by: Morphine Sulfate (Morphine Sulfate 4 Mg/Ml Cartridge) 4 mg IVPUSH Q4H PRN; Protocol PRN Reason: Pain, Severe (Pain Scale 7-10) Last Admin: 10/15/21 00:26 Dose: 4 mg Documented by: Ondansetron HCl (Ondansetron Hcl 4 Mg/2 Ml Vial) 4 mg IVPUSH Q8H PRN PRN Reason: Nausea and Vomiting Pharmacy Consult (Consult Rx Perform Med Rec) 1 each MISCELLANE ONCE PRN PRN Reason: Consult order Sodium Chloride (0.9 % Sodium Chloride Flush 3 Ml Syringe) 3 ml IVFLUSH QSHIFT [facility] Last Admin: 10/15/21 09:14 Dose: Not Given Documented by: Home Medications Medication Instructions Recorded Confirmed Last Taken Type No Known Home Meds 10/15/21 10/15/21 Unknown History Physical Exam Vital Signs: Vital Signs: Last Vital Signs Temp 98 F 10/15/21 11:46 Pulse 65 10/15/21 11:46 Resp 18 10/15/21 11:46 BP 114/70 10/15/21 11:46 Pulse Ox 96 10/15/21 11:46 BMI result Body Mass Index 25.5 Const: General: cooperative, healthy appearing and acute distress mild Orientation/consciousness: oriented to person, oriented to place and oriented to time HEENT: Head: Yes normal to inspection Eyes: Other: nonicteric Resp: Effort & Inspection: normal respiratory effort Auscultation: clear to auscultation bilaterally Cardio: Rate: regular rate Rhythm: regular rhythm GI: Other: soft, nondistended, active bowel sounds, tender with some slight guarding in ruq no peritoneal signs or rebound, no masses Inspection: Yes normal to inspection : General: No CVA tenderness Back/Spine/Pelvis: Back: No CVA tenderness Skin: General skin exam: rashes and/or lesions noted and no jaundice Neuro: General: oriented to person, oriented to place, oriented to time and moves all extremities Cranial nerves: Yes CN's II-XII intact bilaterally Extrem: General: Yes normal to inspection and Yes full ROM Psych: Appearance: grossly normal and well kempt Affect: Anxious affect present Results Labs Result diagrams: 10/15/21 05:49 10/15/21 05:49 Labs: Abnormal lab results 10/14/21 10/14/21 10/14/21 Range/Units 19:10 19:10 19:15 WBC 3.7 L (4.8-10.8) X10*3/uL RBC (4.20-5.50) X10*6/uL Hgb (12.0-16.0) g/dl Hct (37.0-47.0) % Neut % (Auto) (45-73) % Lymph % (Auto) (20-40) % [place] % (Auto) 11.2 H (2-11) % Absolute Neuts (auto) 1.9 L (2.0-8.3) x10*3/uL Chloride (96-108) mmol/L Carbon Dioxide 30 H (22-29) mmol/L Anion Gap 9 L (12-20) Calcium (8.4-10.2) mg/dL Total Bilirubin 3.2 H (0.0-1.0) mg/dL AST 976 H (5-31) U/L ALT 1490 H (0-31) U/L Alkaline Phosphatase 150 H D (39-117) U/L Total Protein (6.5-8.0) g/dL Urine Protein 1+ H (NEG-TRACE) MG/DL Urine Blood 3+ H (NEG) Urine RBC TNTC H (0) /HPF Salicylates (15-30) mg/dL 10/15/21 10/15/21 10/15/21 Range/Units 01:03 05:49 05:49 WBC 2.9 L (4.8-10.8) X10*3/uL RBC 3.63 L (4.20-5.50) X10*6/uL Hgb 11.3 L (12.0-16.0) g/dl Hct 34.6 L (37.0-47.0) % Neut % (Auto) 34.7 L (45-73) % Lymph % (Auto) 50.7 H (20-40) % [place] % (Auto) (2-11) % Absolute Neuts (auto) 1.0 L (2.0-8.3) x10*3/uL Chloride 113 H (96-108) mmol/L Carbon Dioxide (22-29) mmol/L Anion Gap 8 L (12-20) Calcium 8.1 L D (8.4-10.2) mg/dL Total Bilirubin 1.7 H (0.0-1.0) mg/dL AST 451 H (5-31) U/L ALT 944 H (0-31) U/L Alkaline Phosphatase 124 H (39-117) U/L Total Protein 5.5 L D (6.5-8.0) g/dL Urine Protein (NEG-TRACE) MG/DL Urine Blood (NEG) Urine RBC (0) /HPF Salicylates < 5.0 L (15-30) mg/dL Short CBC 10/14/21 10/15/21 Range/Units 19:10 05:49 WBC 3.7 L 2.9 L (4.8-10.8) X10*3/uL Hgb 13.6 11.3 L (12.0-16.0) g/dl Hct 40.7 34.6 L (37.0-47.0) % Plt Count 238 190 (160-400) X10*3/uL BMP 10/14/21 10/15/21 19:10 05:49 Sodium 142 143 Potassium 3.9 3.8 Chloride 107 113 H Carbon Dioxide 30 H 26 BUN 9 9 Creatinine 0.82 0.73 Calcium 9.7 8.1 L D Liver Function 10/14/21 10/15/21 Range/Units 19:10 05:49 Total Bilirubin 3.2 H 1.7 H (0.0-1.0) mg/dL AST 976 H 451 H (5-31) U/L ALT 1490 H 944 H (0-31) U/L Alkaline Phosphatase 150 H D 124 H (39-117) U/L Albumin 4.4 3.6 (3.5-5.0) g/dL Urine 10/14/21 10/14/21 Range/Units 19:15 19:15 Urine Color YELLOW Urine Appearance CLOUDY Urine pH 7.0 (5.0-8.0) Ur Specific [place] 1.020 (1.005-1.025) Urine Protein 1+ H (NEG-TRACE) MG/DL Urine Glucose (UA) NEG (NEG) MG/DL Urine Test NEGATIVE (NEGATIVE) All other labs normal. Imaging Abdomen CT scan report/results: report reviewed and image reviewed CT scan - pelvis: report reviewed and image reviewed Abdominal ultrasound report/results: report reviewed and image reviewed Additional studies: mri reviewed and discussed with radiologist Assessment and Plan (1) Biliary colic: Status: Acute Plan 26 year old female with ruq pain and tenderness, some nausea and vomiting after eating foods particularly some fatty greasy foods - but with very elevated lfts. i think she does have biliary colic and probable chronic cholecystitis but not convinced of acute cholecystitis. Her lfts are very high for this with a normal wbc in a non imunosupressed pt and with an MRCP clearly defining just one large stone in fundus not neck, no ductal dilatation, no evidence of Mirrizi syndrome, no inflammatory changes in the wall or surrounding tissue of the liver. i do think the pt has some biliary colic and would benefit from a lap khoa but i am not convinced her elevated lfts are solely from her biliary disease. need to rule out hepatitis etc and appreciate GI consult and med team. Will do just popsicles for today and fu on labs tomorrow- if hep normal and labs improved can plan lap khoa and see how she does from this postop. extensive discussion had with the pt and her mother and med team. Procedures Date of Service Date of Service: 10/15/21
--- NOTE | 2021-10-15 14:37 | PHA.MEDREC ---
Pharmacy Consult ? Medication Reconciliation Pharmacy has completed the medication reconciliation. Spoke with patient
[2021-10-15] MEDS: ondansetron HCL 4 MG/2 ML VIAL IVPUSH (16:47)
--- NOTE | 2021-10-15 17:07 | PC.NURSE ---
P patient c/o burning on urination I Dr. Bear notified e will monitor
[2021-10-16] VITALS (7 sets, daily range): BP systolic 99–118; BP diastolic 53–79; PULSE 47–74; RESP 16–20; TEMP 36.1–37.1; O2SAT 97–100
[2021-10-16] MEDS: 0.9 % Sodium Chloride Flush 3 ML SYRINGE IVFLUSH ×2 (00:11→08:54)
[2021-10-16] MEDS: Piperacillin Sodium/Tazobactam 3.375 GM in 0.9 % Sodium Chloride 50 ML IV ×4 (00:11→17:34)
[2021-10-16 06:29] LABS: Hematocrit 35.1 % (37.0-47.0); Hemoglobin 11.4 g/dl (12.0-16.0); Mean Corpuscular HGB Conc 32.5 g/dl (31.0-35.0); Mean Corpuscular Hemoglobin 30.4 pg (27.0-33.0); Mean Corpuscular Volume 93.6 fL (80.0-98.0); Mean Platelet Volume 10.6 fL (9.4-12.3); Platelet Count 196 X10*3/uL (160-400); Red Blood Count 3.75 X10*6/uL (4.20-5.50); Red Cell Distribution Width 13.1 % (11.0-16.0); White Blood Count 3.3 X10*3/uL (4.8-10.8)
[2021-10-16 06:59] LABS: INTERNATIONAL NORM RATIO 1.3 (0.9-1.1); Prothrombin Time 14.5 SEC (9.9-13.0)
--- NOTE | 2021-10-16 07:41 | P.PNIM_ITS ---
Subjective Subjective Date of Service: 10/16/21 Interval History: cholelithasis Review of Systems abd pain seems improving denies any chest or sob or fevers or chills Physical Exam Vital Signs: Vital Signs: Last Vital Signs Temp 97 F 10/16/21 06:57 Pulse 74 10/16/21 03:34 Resp 20 10/16/21 06:57 BP 106/54 L 10/16/21 06:57 Pulse Ox 99 10/16/21 06:57 BMI result Body Mass Index 25.5 Appearance: Alert.? Oriented X3.? not in distress.? Eyes: Pupils equal, round and reactive to light.? Sclera nonicteric.? ENT: Pharynx normal.? Moist mucous membranes. cvs: rrr, [id number] , no murmur res: clear to auscultation ,no rhonchii or wheezing abd: no rebound or guarding ,ruq pain improving, bs present. ext pulses present , no cyanosis . neuro: axo3 , nonfocal. Objective Data Active Medications Acetaminophen (Acetaminophen 325 Mg Tablet) 650 mg PO Q6H PRN PRN Reason: Pain, Mild (Pain Scale 1-3) Last Admin: 10/15/21 09:20 Dose: 650 mg Documented by: MADHAV Piperacillin Sod/Tazobactam (Sod 3.375 gm/ Sodium Chloride) 50 mls @ 100 mls/hr IV Q6H [facility] Last Infusion: 10/16/21 05:56 Dose: 100 mls/hr Documented by: RYAN Sodium Chloride (Ns) 1,000 mls @ 100 mls/hr IVCONT .Q10H [facility] Last Admin: 10/15/21 20:08 Dose: 100 mls/hr Documented by: ZACK Morphine Sulfate (Morphine Sulfate 4 Mg/Ml Cartridge) 4 mg IVPUSH Q4H PRN; Protocol PRN Reason: Pain, Severe (Pain Scale 7-10) Last Admin: 10/15/21 00:26 Dose: 4 mg Documented by: TJ Ondansetron HCl (Ondansetron Hcl 4 Mg/2 Ml Vial) 4 mg IVPUSH Q8H PRN PRN Reason: Nausea and Vomiting Last Admin: 10/15/21 16:47 Dose: 4 mg Documented by: ZACK Pharmacy Consult (Consult Rx Perform Med Rec) 1 each MISCELLANE ONCE PRN PRN Reason: Consult order Sodium Chloride (0.9 % Sodium Chloride Flush 3 Ml Syringe) 3 ml IVFLUSH QSHIFT [facility] Last Admin: 10/16/21 00:11 Dose: 3 ml Documented by: RYAN Labs CBC & Chem 7: 10/16/21 05:58 10/16/21 05:58 Labs: Laboratory Results - last 24 hr 10/16/21 10/16/21 05:58 05:58 MCV 93.6 MCH 30.4 MCHC 32.5 RDW 13.1 Plt Count 196 MPV 10.6 Absolute Nucleated RBC 0.000 Nucleated RBC % (auto) 0.0 PT 14.5 H INR 1.3 H Assessment and Plan (1) Cholecystitis: Status: Acute (2) Abdominal pain: Status: Acute Plan 26-year-old female with no significant past medical history presents to the hospital with abdominal pain found to have transaminitis as well as evidence of cholecystitis 1.acute vs ch . cholecystitis - has right upper quadrant pain, pain following fatty food, Mraiano sign positive - evidence of gallbladder wall thickness on ultrasound as well as ch olelithiasis, mrcp noted -fine - will treat with Zosyn,follow cultures - general surgery consulted -less likelty acute cholecytstitis, mrcp neg 2. transaminitis lfts's trending down - although bleed multifactorial - secondary to biliary disease in the setting of cholecystitis as well as possible underlying liver disease although less likely - hepatitis panel pending, Tylenol and as salicylate levels normal - follow CMP DVT prophylaxis:? SCDs patient of possible surgical intervention need for inpatient : transamnitis Quality Stroke Does the patient have a stroke diagnosis?: No VTE Prior VTE?: No VTE Risk Level:: Medical - moderate - high VTE Device Contraindication: N/A - Device Ordered VTE Drug Contraindication: Treatment Not Indicated
[2021-10-16] MEDS: 0.9 % Sodium Chloride 1,000 ML 100 ML IVCONT ×2 (08:53→17:33)
[2021-10-16] MEDS: Acetaminophen 325 MG TABLET 650 MG PO ×2 (08:53→17:42)
[2021-10-16 09:06] LABS: Alanine Aminotransferase 661 U/L (0-31); Albumin Level 3.4 g/dL (3.5-5.0); Alkaline Phosphatase 139 U/L (39-117); Anion Gap 12 (12-20); Aspartate Amino Transferase 175 U/L (5-31); Bilirubin Direct 0.9 mg/dL (0.0-0.5); Bilirubin Total 1.5 mg/dL (0.0-1.0); Blood Urea Nitrogen 10 mg/dL (9-16); Carbon Dioxide 20 mmol/L (22-29); Chloride 113 mmol/L (96-108); Creatinine Clr Calc Pharmacy 126.6; Estimated Glomerular Filt Rate > 60; Glucose Random 66 mg/dL (60-115); Potassium 3.8 mmol/L (3.3-5.1); Sodium 141 mmol/L (135-145); Total Protein 5.3 g/dL (6.5-8.0)
[2021-10-16 09:29] LABS: Appearance Urine TURBID; Color Urine RED; Glucose Urine UA NEG (NEG); Nitrite Urine NEG (NEG); Specific Gravity - Urine >= 1.030 (1.005-1.025); UACC Culture Trigger NO; Urine Blood 3+ (NEG); Urine Ketones >=80 MG/DL (NEG); Urine Protein 2+ MG/DL (NEG-TRACE)
[2021-10-16 09:30] LABS: Leukocyte Esterase Urine NEG (NEG)
[2021-10-16 09:32] LABS: RBC Urine TNTC /HPF (0); Squamous Epithelial Cell Urine TRACE /LPF; WBC Urine 0 /HPF (0-4)
[2021-10-16 09:34] LABS: Bacteria Urine TRACE /LPF
[2021-10-16] MEDS: ondansetron HCL 4 MG/2 ML VIAL IVPUSH (17:43)
--- NOTE | 2021-10-16 22:02 | PM.PNGS ---
Subjective Subjective Date of Service: 10/16/21 Patient reports: no new complaints Interval history: pt feeling ok no new issues no nausea or vomiting Physical Exam Vital Signs: Vital Signs: Last Vital Signs Temp 97.8 F 10/16/21 19:30 Pulse 48 L 10/16/21 19:30 Resp 18 10/16/21 19:30 BP 118/79 10/16/21 19:30 Pulse Ox 98 10/16/21 19:30 BMI result Body Mass Index 25.5 GI: Other: soft nondistended, tender in one spot in ruq no peritoneal signs Skin: Other: nonicteric Objective Data Active Medications Acetaminophen (Acetaminophen 325 Mg Tablet) 650 mg PO Q6H PRN PRN Reason: Pain, Mild (Pain Scale 1-3) Last Admin: 10/16/21 17:42 Dose: 650 mg Documented by: ZACK Piperacillin Sod/Tazobactam (Sod 3.375 gm/ Sodium Chloride) 50 mls @ 100 mls/hr IV Q6H [facility] Last Infusion: 10/16/21 18:33 Dose: 0 mls/hr Documented by: ZACK Sodium Chloride (Ns) 1,000 mls @ 100 mls/hr IVCONT .Q10H [facility] Last Admin: 10/16/21 17:33 Dose: 100 mls/hr Documented by: ZACK Morphine Sulfate (Morphine Sulfate 4 Mg/Ml Cartridge) 4 mg IVPUSH Q4H PRN; Protocol PRN Reason: Pain, Severe (Pain Scale 7-10) Last Admin: 10/15/21 00:26 Dose: 4 mg Documented by: TJ Ondansetron HCl (Ondansetron Hcl 4 Mg/2 Ml Vial) 4 mg IVPUSH Q8H PRN PRN Reason: Nausea and Vomiting Last Admin: 10/16/21 17:43 Dose: 4 mg Documented by: ZACK Pharmacy Consult (Consult Rx Perform Med Rec) 1 each MISCELLANE ONCE PRN PRN Reason: Consult order Sodium Chloride (0.9 % Sodium Chloride Flush 3 Ml Syringe) 3 ml IVFLUSH QSHIFT [facility] Last Admin: 10/16/21 17:32 Dose: Not Given Documented by: ZACK Non-Admin Reason: IV Running Labs CBC & Chem 7: 10/16/21 05:58 10/16/21 05:58 Labs: Laboratory Results - last 24 hr 10/16/21 10/16/21 10/16/21 05:58 05:58 05:58 MCV 93.6 MCH 30.4 MCHC 32.5 RDW 13.1 Plt Count 196 MPV 10.6 Absolute Nucleated RBC 0.000 Nucleated RBC % (auto) 0.0 PT 14.5 H INR 1.3 H Anion Gap 12 Estim Creat Clear Calc 126.6 Estimated GFR > 60 Random Glucose 66 Calcium 8.0 L Total Bilirubin 1.5 H Direct Bilirubin 0.9 H AST 175 H ALT 661 H Alkaline Phosphatase 139 H Total Protein 5.3 L Albumin 3.4 L Urine Color Urine Appearance Urine pH Ur Specific [place] Urine Protein Urine Glucose (UA) Urine Ketones Urine Blood Urine Nitrite Ur Leukocyte Esterase Urine RBC Urine WBC Ur Squamous Epith Cells Urine Bacteria 10/16/21 08:35 MCV MCH MCHC RDW Plt Count MPV Absolute Nucleated RBC Nucleated RBC % (auto) PT INR Anion Gap Estim Creat Clear Calc Estimated GFR Random Glucose Calcium Total Bilirubin Direct Bilirubin AST ALT Alkaline Phosphatase Total Protein Albumin Urine Color RED A Urine Appearance TURBID Urine pH 6.[address] [place] >= 1.030 H Urine Protein 2+ H Urine Glucose (UA) NEG Urine Ketones >=80 Urine Blood 3+ H Urine Nitrite NEG Ur Leukocyte Esterase NEG Urine RBC TNTC H Urine WBC 0 Ur Squamous Epith Cells TRACE Urine Bacteria TRACE Procedures Date of Service Date of Service: 10/16/21 Progress Note: A&P Assessment and plan (1) Biliary colic: Status: Acute Assessment and Plan: 26 year old male with ruq pain, probable biliary colic but very elevated lfts. labs much improved hepatitis panel still pending plan to advance diet and see how she tolerates this. consider npo after midnight and possible lap khoa tomorow as lfts imprve. Fall Risk Details Current Medications: Current Medications Acetaminophen (Acetaminophen 325 Mg Tablet) 650 mg PO Q6H PRN PRN Reason: Pain, Mild (Pain Scale 1-3) Last Admin: 10/16/21 17:42 Dose: 650 mg Documented by: Piperacillin Sod/Tazobactam (Sod 3.375 gm/ Sodium Chloride) 50 mls @ 100 mls/hr IV Q6H [facility] Last Infusion: 10/16/21 18:33 Dose: Infused Documented by: Sodium Chloride (Ns) 1,000 mls @ 100 mls/hr IVCONT .Q10H [facility] Last Admin: 10/16/21 17:33 Dose: 100 mls/hr Documented by: Morphine Sulfate (Morphine Sulfate 4 Mg/Ml Cartridge) 4 mg IVPUSH Q4H PRN; Protocol PRN Reason: Pain, Severe (Pain Scale 7-10) Last Admin: 10/15/21 00:26 Dose: 4 mg Documented by: Ondansetron HCl (Ondansetron Hcl 4 Mg/2 Ml Vial) 4 mg IVPUSH Q8H PRN PRN Reason: Nausea and Vomiting Last Admin: 10/16/21 17:43 Dose: 4 mg Documented by: Pharmacy Consult (Consult Rx Perform Med Rec) 1 each MISCELLANE ONCE PRN PRN Reason: Consult order Sodium Chloride (0.9 % Sodium Chloride Flush 3 Ml Syringe) 3 ml IVFLUSH QSHIFT [facility] Last Admin: 10/16/21 17:32 Dose: Not Given Documented by: Time Spent With Patient Time: Total time spent is greater than 50% in coordination of care (as documented) at patient's floor/unit and/or counseling patient: Quality Stroke Does the patient have a stroke diagnosis?: No VTE Prior VTE?: No VTE Risk Level:: Medical - moderate - high VTE Device Contraindication: N/A - Device Ordered VTE Drug Contraindication: Treatment Not Indicated
[2021-10-17] MEDS: Piperacillin Sodium/Tazobactam 3.375 GM in 0.9 % Sodium Chloride 50 ML IV ×4 (01:07→18:05)
[2021-10-17 04:00] VITALS: BP 114/72; PULSE 57; RESP 18; TEMP 36.6; O2SAT 97
[2021-10-17 04:20] LABS: ~HepC Num1 0.14 S/CO (0.00-0.79); ~Hepatitis C Antibody Nonreactive (Nonreactive)
--- NOTE | 2021-10-17 04:33 | PC.NURSE ---
Patient instructed at midnight to maintain NPO status
[2021-10-17 04:36] LABS: HBS Num1 0.56 mIU/mL (0-7.99); HBc Num1 0.05 S/CO (0.00-0.79); HBsAGNum1 0.24 S/CO (0.00-0.99); Hepatitis B Core Antibody Nonreactive (Nonreactive); Hepatitis B Surface Antigen Negative (Negative); ~Hepatitis B Surface Antibody NONREACTIVE (Nonreactive)
[2021-10-17] MEDS: 0.9 % Sodium Chloride 1,000 ML 100 ML IVCONT ×2 (05:51→16:18)
[2021-10-17] MEDS: ondansetron HCL 4 MG/2 ML VIAL IVPUSH (05:59)
[2021-10-17 06:35] LABS: Alanine Aminotransferase 523 U/L (0-31); Albumin Level 3.4 g/dL (3.5-5.0); Alkaline Phosphatase 146 U/L (39-117); Anion Gap 11 (12-20); Aspartate Amino Transferase 127 U/L (5-31); Bilirubin Direct 1.3 mg/dL (0.0-0.5); Blood Urea Nitrogen 4 mg/dL (9-16); Calcium 8.2 mg/dL (8.4-10.2); Carbon Dioxide 23 mmol/L (22-29); Chloride 112 mmol/L (96-108); Creatinine Clr Calc Pharmacy 119.9; Estimated Glomerular Filt Rate > 60; Glucose Random 91 mg/dL (60-115); Potassium 4.6 mmol/L (3.3-5.1); Sodium 141 mmol/L (135-145); Total Protein 5.5 g/dL (6.5-8.0)
[2021-10-17 07:38] VITALS: BP 114/67; PULSE 50; RESP 18; TEMP 36.4; O2SAT 98
--- NOTE | 2021-10-17 07:54 | HO.PM.IMPN ---
Subjective Subjective Date of Service: 10/17/21 Interval History: cholelitasis Review of Systems abd pain resolved, but still feels nauseated with food Denies any chest pain shortness of breath or fever chills or cough or phlegm or any urinary complaints. Physical Exam Vital Signs: Vital Signs: Last Vital Signs Temp 97.6 F 10/17/21 07:38 Pulse 50 10/17/21 07:38 Resp 18 10/17/21 07:38 BP 114/67 10/17/21 07:38 Pulse Ox 98 10/17/21 07:38 BMI result Body Mass Index 25.5 Appearance: Alert.? Oriented X3.?anxious.? Eyes: Pupils equal, round and reactive to light.? Sclera nonicteric.? ENT: Pharynx normal.? Moist mucous membranes. cvs: rrr, [id number] , no murmur res: clear to auscultation ,no rhonchii or wheezing abd: no rebound or guarding ,ruq pain improved, bs present. ext pulses present , no cyanosis . neuro: axo3 , nonfocal. Objective Data Active Medications Acetaminophen (Acetaminophen 325 Mg Tablet) 650 mg PO Q6H PRN PRN Reason: Pain, Mild (Pain Scale 1-3) Last Admin: 10/16/21 17:42 Dose: 650 mg Documented by: ZACK Piperacillin Sod/Tazobactam (Sod 3.375 gm/ Sodium Chloride) 50 mls @ 100 mls/hr IV Q6H [facility] Last Infusion: 10/17/21 07:12 Dose: 100 mls/hr Documented by: FRANCESCO Sodium Chloride (Ns) 1,000 mls @ 100 mls/hr IVCONT .Q10H [facility] Last Admin: 10/17/21 05:51 Dose: 100 mls/hr Documented by: NICKY Morphine Sulfate (Morphine Sulfate 4 Mg/Ml Cartridge) 4 mg IVPUSH Q4H PRN; Protocol PRN Reason: Pain, Severe (Pain Scale 7-10) Last Admin: 10/15/21 00:26 Dose: 4 mg Documented by: TJ Ondansetron HCl (Ondansetron Hcl 4 Mg/2 Ml Vial) 4 mg IVPUSH Q8H PRN PRN Reason: Nausea and Vomiting Last Admin: 10/17/21 05:59 Dose: 4 mg Documented by: NICKY Pharmacy Consult (Consult Rx Perform Med Rec) 1 each MISCELLANE ONCE PRN PRN Reason: Consult order Sodium Chloride (0.9 % Sodium Chloride Flush 3 Ml Syringe) 3 ml IVFLUSH QSHIFT [facility] Last Admin: 10/17/21 01:08 Dose: Not Given Documented by: NICKY Non-Admin Reason: IV Running Labs CBC & Chem 7: 10/16/21 05:58 10/17/21 05:49 Labs: Laboratory Results - last 24 hr 10/15/21 10/16/21 10/16/21 01:03 05:58 08:35 Anion Gap 12 Estim Creat Clear Calc 126.6 Estimated GFR > 60 Random Glucose 66 Calcium 8.0 L Total Bilirubin 1.5 H Direct Bilirubin 0.9 H AST 175 H ALT 661 H Alkaline Phosphatase 139 H Total Protein 5.3 L Albumin 3.4 L Urine Color RED A Urine Appearance TURBID Urine pH 6.0 Ur Specific [place] >= 1.030 H Urine Protein 2+ H Urine Glucose (UA) NEG Urine Ketones >=80 Urine Blood 3+ H Urine Nitrite NEG Ur Leukocyte Esterase NEG Urine RBC TNTC H Urine WBC 0 Ur Squamous Epith Cells TRACE Urine Bacteria TRACE Hep Bs Antigen Negative Hep Bs Antibody NONREACTIVE Hep B Core Total Ab Nonreactive Hepatitis C Ab (EIA) Nonreactive 10/17/21 05:49 Anion Gap 11 L Estim Creat Clear Calc 119.9 Estimated GFR > 60 Random Glucose 91 Calcium 8.2 L Total Bilirubin 2.0 H Direct Bilirubin 1.3 H AST 127 H ALT 523 H Alkaline Phosphatase 146 H Total Protein 5.5 L Albumin 3.4 L Urine Color Urine Appearance Urine pH Ur Specific [place] Urine Protein Urine Glucose (UA) Urine Ketones Urine Blood Urine Nitrite Ur Leukocyte Esterase Urine RBC Urine WBC Ur Squamous Epith Cells Urine Bacteria Hep Bs Antigen Hep Bs Antibody Hep B Core Total Ab Hepatitis C Ab (EIA) Assessment and Plan (1) Cholecystitis: Status: Acute (2) Abdominal pain: Status: Acute Plan 26-year-old female with no significant past medical history presents to the hospital with abdominal pain found to have transaminitis as well as evidence of cholecystitis 1.acute vs ch . cholecystitis- ruq improved still nausea with food - evidence of gallbladder wall thickness on ultrasound as well as cholelithiasis, mrcp noted -fine d/w surgery and Gi-added hida scan and abd dupplex for shell searsi continue iv antibiotics. 2. transaminitis lfts's trending down, but bilirubin(total and direct slightly up from yesterday). - although bleed multifactorial - secondary to biliary disease in the setting of cholecystitis as well as possible underlying liver disease although less likely - hepatitis panel B and C serology seems negative, hepatitis IgM pending, Tylenol and as salicylate levels normal - follow CMP 3.anxiety: added care teameval DVT prophylaxis:? SCDs patient of possible surgical intervention need for inpatient : transamnitis Above management discussed with patient and patient further in detail length, currently surgical intervention is deferred until LFTs trending down. Quality Stroke Does the patient have a stroke diagnosis?: No VTE Prior VTE?: No VTE Risk Level:: Medical - moderate - high VTE Device Contraindication: N/A - Device Ordered VTE Drug Contraindication: Treatment Not Indicated
--- NOTE | 2021-10-17 08:16 | PM.PNGS ---
Subjective Subjective Date of Service: 10/17/21 Interval history: Very anxious States that she is okay She does feel that she gets nauseous but with oral intake Denies significant abdominal pain Physical Exam Vital Signs: Vital Signs: Last Vital Signs Temp 97.6 F 10/17/21 07:38 Pulse 50 10/17/21 07:38 Resp 18 10/17/21 07:38 BP 114/67 10/17/21 07:38 Pulse Ox 98 10/17/21 07:38 BMI result Body Mass Index 25.5 Const: Other: Anxious looking General: comfortable and no acute distress Eyes: Other: No obvious jaundice Resp: Effort & Inspection: normal respiratory effort Cardio: Rate: regular rate GI: Other: Soft, nondistended, no guarding, no Mariano sign, minimal tenderness epigastric area only to deep palpation Objective Data Active Medications Acetaminophen (Acetaminophen 325 Mg Tablet) 650 mg PO Q6H PRN PRN Reason: Pain, Mild (Pain Scale 1-3) Last Admin: 10/16/21 17:42 Dose: 650 mg Documented by: ZACK Piperacillin Sod/Tazobactam (Sod 3.375 gm/ Sodium Chloride) 50 mls @ 100 mls/hr IV Q6H [facility] Last Infusion: 10/17/21 07:12 Dose: 100 mls/hr Documented by: FRANCESCO Sodium Chloride (Ns) 1,000 mls @ 100 mls/hr IVCONT .Q10H [facility] Last Admin: 10/17/21 05:51 Dose: 100 mls/hr Documented by: NICKY Morphine Sulfate (Morphine Sulfate 4 Mg/Ml Cartridge) 4 mg IVPUSH Q4H PRN; Protocol PRN Reason: Pain, Severe (Pain Scale 7-10) Last Admin: 10/15/21 00:26 Dose: 4 mg Documented by: TJ Ondansetron HCl (Ondansetron Hcl 4 Mg/2 Ml Vial) 4 mg IVPUSH Q8H PRN PRN Reason: Nausea and Vomiting Last Admin: 10/17/21 05:59 Dose: 4 mg Documented by: NICKY Pharmacy Consult (Consult Rx Perform Med Rec) 1 each MISCELLANE ONCE PRN PRN Reason: Consult order Sodium Chloride (0.9 % Sodium Chloride Flush 3 Ml Syringe) 3 ml IVFLUSH QSHIFT [facility] Last Admin: 10/17/21 01:08 Dose: Not Given Documented by: NICKY Non-Admin Reason: IV Running Labs CBC & Chem 7: 10/16/21 05:58 10/17/21 05:49 Labs: Laboratory Results - last 24 hr 10/15/21 10/16/21 10/16/21 01:03 05:58 08:35 Anion Gap 12 Estim Creat Clear Calc 126.6 Estimated GFR > 60 Random Glucose 66 Calcium 8.0 L Total Bilirubin 1.5 H Direct Bilirubin 0.9 H AST 175 H ALT 661 H Alkaline Phosphatase 139 H Total Protein 5.3 L Albumin 3.4 L Urine Color RED A Urine Appearance TURBID Urine pH 6.0 Ur Specific [place] >= 1.030 H Urine Protein 2+ H Urine Glucose (UA) NEG Urine Ketones >=80 Urine Blood 3+ H Urine Nitrite NEG Ur Leukocyte Esterase NEG Urine RBC TNTC H Urine WBC 0 Ur Squamous Epith Cells TRACE Urine Bacteria TRACE Hep Bs Antigen Negative Hep Bs Antibody NONREACTIVE Hep B Core Total Ab Nonreactive Hepatitis C Ab (EIA) Nonreactive 10/17/21 05:49 Anion Gap 11 L Estim Creat Clear Calc 119.9 Estimated GFR > 60 Random Glucose 91 Calcium 8.2 L Total Bilirubin 2.0 H Direct Bilirubin 1.3 H AST 127 H ALT 523 H Alkaline Phosphatase 146 H Total Protein 5.5 L Albumin 3.4 L Urine Color Urine Appearance Urine pH Ur Specific [place] Urine Protein Urine Glucose (UA) Urine Ketones Urine Blood Urine Nitrite Ur Leukocyte Esterase Urine RBC Urine WBC Ur Squamous Epith Cells Urine Bacteria Hep Bs Antigen Hep Bs Antibody Hep B Core Total Ab Hepatitis C Ab (EIA) Procedures Date of Service Date of Service: 10/17/21 Progress Note: A&P Assessment and plan (1) Cholelithiasis: Status: Acute Assessment and Plan: Bilirubin elevated again this morning MRCP does not show obvious CBD obstruction Otherwise, does not seem to have cholecystitis on exam WBC down GI consult Exam otherwise benign Explained plan to patient Fall Risk Details Current Medications: Current Medications Acetaminophen (Acetaminophen 325 Mg Tablet) 650 mg PO Q6H PRN PRN Reason: Pain, Mild (Pain Scale 1-3) Last Admin: 10/16/21 17:42 Dose: 650 mg Documented by: Piperacillin Sod/Tazobactam (Sod 3.375 gm/ Sodium Chloride) 50 mls @ 100 mls/hr IV Q6H [facility] Last Infusion: 10/17/21 07:12 Dose: Infused Documented by: Sodium Chloride (Ns) 1,000 mls @ 100 mls/hr IVCONT .Q10H [facility] Last Admin: 10/17/21 05:51 Dose: 100 mls/hr Documented by: Morphine Sulfate (Morphine Sulfate 4 Mg/Ml Cartridge) 4 mg IVPUSH Q4H PRN; Protocol PRN Reason: Pain, Severe (Pain Scale 7-10) Last Admin: 10/15/21 00:26 Dose: 4 mg Documented by: Ondansetron HCl (Ondansetron Hcl 4 Mg/2 Ml Vial) 4 mg IVPUSH Q8H PRN PRN Reason: Nausea and Vomiting Last Admin: 10/17/21 05:59 Dose: 4 mg Documented by: Pharmacy Consult (Consult Rx Perform Med Rec) 1 each MISCELLANE ONCE PRN PRN Reason: Consult order Sodium Chloride (0.9 % Sodium Chloride Flush 3 Ml Syringe) 3 ml IVFLUSH QSHIFT [facility] Last Admin: 10/17/21 01:08 Dose: Not Given Documented by: Time Spent With Patient Time: Total time spent is greater than 50% in coordination of care (as documented) at patient's floor/unit and/or counseling patient: Quality Stroke Does the patient have a stroke diagnosis?: No VTE Prior VTE?: No VTE Risk Level:: Medical - moderate - high VTE Device Contraindication: N/A - Device Ordered VTE Drug Contraindication: Treatment Not Indicated
--- NOTE | 2021-10-17 09:45 | MHC.CARE ---
CARE Team undergraduate internship met with pt to check in regarding concerns related to anxiety and depression. Pt reported that she is mainly anxious about her current medical issues and not knowing whether she will be getting surgery or not. Pt stated that she has struggled with anxiety before, but has never felt she needed professional supports to handle it. Pt identified her mother as a support to her and stated that she feels able to manage her anxiety on her own at this time. Pt declined discussing referrals for therapy or psychiatry and stated she did not have any further concerns.
[2021-10-17] MEDS: Acetaminophen 325 MG TABLET 650 MG PO (10:17)
[2021-10-17 12:00] VITALS: BP 112/77; PULSE 48; RESP 18; TEMP 36.4; O2SAT 96
[2021-10-17 15:17] VITALS: BP 121/80; PULSE 52; RESP 18; TEMP 36.6; O2SAT 98
--- NOTE | 2021-10-17 17:30 | PM.GIPN ---
Subjective Subjective Date of Service: 10/17/21 Interval History: Pain is improved, ut still has nausea, sx got worse yesterday after she ate some solid food but improved today no vomiting no fever poor appetite no rectal bleeding, or melena she has an irritated throat today Critical Care Time (minutes): 0 Physical Exam Vital Signs: Vital Signs: Last Vital Signs Temp 97.9 F 10/17/21 15:17 Pulse 52 10/17/21 15:17 Resp 18 10/17/21 15:17 BP 121/80 10/17/21 15:17 Pulse Ox 98 10/17/21 15:17 BMI result Body Mass Index 25.5 EXAM: GENERAL: The patient is well developed and nontoxic. VITAL SIGNS:see workflow HEENT: Nonicteric sclerae, PERRLA, EOMI. Oropharynx clear. Moist mucous membranes. Conjunctivae appear well perfused. No thyroid mass. No enlarged tonsils CHEST: Chest wall is nontender. HEART: Regular rate and rhythm without murmurs. LUNGS: Clear to auscultation bilaterally. ABDOMEN: Soft, positive bowel sounds, tender RUQ, no organomegaly.no flank tenderness SKIN: No rash, no excessive bruising, petechiae, or purpura. NEUROLOGIC: Cranial nerves II-XII intact without motor/sensory deficit. Objective Data Labs CBC & Chem 7: 10/16/21 05:58 10/17/21 05:49 Labs: Laboratory Results - last 24 hr 10/15/21 10/17/21 01:03 05:49 Sodium 141 Potassium 4.6 D Chloride 112 H Carbon Dioxide 23 Anion Gap 11 L BUN 4 L D Creatinine 0.76 Estim Creat Clear Calc 119.9 Estimated GFR > 60 Random Glucose 91 Calcium 8.2 L Total Bilirubin 2.0 H Direct Bilirubin 1.3 H AST 127 H ALT 523 H Alkaline Phosphatase 146 H Total Protein 5.5 L Albumin 3.4 L Hep Bs Antigen Negative Hep Bs Antibody NONREACTIVE Hep B Core Total Ab Nonreactive Hepatitis C Ab (EIA) Nonreactive Procedures Date of Service Date of Service: 10/17/21 Progress Note: A&P Assessment and plan (1) Abdominal pain: Status: Acute (2) Cholelithiasis: Status: Acute Plan 1/ Abn LFT with sharp drop in numbers, clinical hx is most consistent with biliary colic and cholecystitis including her intermittent symptoms over time prior to this admission. hep A serology pending. She has scratchy throat but no tonsilar exudate on exam. Acetaminophen level was negative. PLAN: 1/ Check US and doppler to r/o budd chiari syndrome 2/HIDA 3/ check EBV and monospot 4/ cont abx for the moment Fall Risk Details Current Medications: Current Medications Acetaminophen (Acetaminophen 325 Mg Tablet) 650 mg PO Q6H PRN PRN Reason: Pain, Mild (Pain Scale 1-3) Last Admin: 10/17/21 10:17 Dose: 650 mg Documented by: Piperacillin Sod/Tazobactam (Sod 3.375 gm/ Sodium Chloride) 50 mls @ 100 mls/hr IV Q6H [facility] Last Infusion: 10/17/21 15:29 Dose: Infused Documented by: Sodium Chloride (Ns) 1,000 mls @ 100 mls/hr IVCONT .Q10H [facility] Last Admin: 10/17/21 16:18 Dose: 100 mls/hr Documented by: Morphine Sulfate (Morphine Sulfate 4 Mg/Ml Cartridge) 4 mg IVPUSH Q4H PRN; Protocol PRN Reason: Pain, Severe (Pain Scale 7-10) Last Admin: 10/15/21 00:26 Dose: 4 mg Documented by: Ondansetron HCl (Ondansetron Hcl 4 Mg/2 Ml Vial) 4 mg IVPUSH Q8H PRN PRN Reason: Nausea and Vomiting Last Admin: 10/17/21 05:59 Dose: 4 mg Documented by: Pharmacy Consult (Consult Rx Perform Med Rec) 1 each MISCELLANE ONCE PRN PRN Reason: Consult order Sodium Chloride (0.9 % Sodium Chloride Flush 3 Ml Syringe) 3 ml IVFLUSH QSHIFT [facility] Last Admin: 10/17/21 16:20 Dose: Not Given Documented by: Time Spent With Patient Time: Total time spent is greater than 50% in coordination of care (as documented) at patient's floor/unit and/or counseling patient: Quality Stroke Does the patient have a stroke diagnosis?: No VTE Prior VTE?: No VTE Risk Level:: Medical - moderate - high VTE Device Contraindication: N/A - Device Ordered VTE Drug Contraindication: Treatment Not Indicated
[2021-10-17 19:18] VITALS: BP 116/75; PULSE 48; RESP 18; TEMP 36.7; O2SAT 100
[2021-10-17 21:13] VITALS: BP 140/85; PULSE 67; RESP 20; O2SAT 99
--- NOTE | 2021-10-17 21:25 | PC.NURSE ---
P patient complaining of feeling anxious and worrying about her low HR ,patient sister visiting at bedside,c/o nausea I assessed patient ,lungs clear bilaterally,BP 140/85 pulse 67 ,Sat 99% on RA,patient refused Zofran,Dr. Hairston notified E Dr. Hairston will come and see patient,patient was notifed
--- NOTE | 2021-10-17 21:29 | PC.NURSE ---
P patient and her sister stating they would like to transfer to [facility] I I Dr. Hairston notified
--- NOTE | 2021-10-17 22:13 | PC.NURSE ---
Dr. Hairston spoke with patient regarding transfer to [facility]
--- NOTE | 2021-10-17 22:14 | PC.NURSE ---
p patient is requesting tests results records I nursing briar shop supervisor Dominick spoke with patient and looking into this process now
--- NOTE | 2021-10-17 22:31 | PC.NURSE ---
Dominick nursing water plant pump operator supervisor is with the patient explaining test and labs results
[2021-10-18] VITALS: BP 125/81; PULSE 59; RESP 14; TEMP 36.9; O2SAT 99
[2021-10-18] MEDS: Piperacillin Sodium/Tazobactam 3.375 GM in 0.9 % Sodium Chloride 50 ML IV ×5 (00:05→23:27)
[2021-10-18 04:00] VITALS: BP 112/72; PULSE 56; RESP 14; TEMP 36.5; O2SAT 99
[2021-10-18] MEDS: 0.9 % Sodium Chloride 1,000 ML 100 ML IVCONT (06:16)
[2021-10-18 06:21] LABS: Hematocrit 36.6 % (37.0-47.0); Hemoglobin 12.2 g/dl (12.0-16.0); Mean Corpuscular HGB Conc 33.3 g/dl (31.0-35.0); Mean Corpuscular Hemoglobin 30.6 pg (27.0-33.0); Mean Corpuscular Volume 91.7 fL (80.0-98.0); Mean Platelet Volume 10.4 fL (9.4-12.3); Platelet Count 216 X10*3/uL (160-400); Red Blood Count 3.99 X10*6/uL (4.20-5.50); White Blood Count 3.8 X10*3/uL (4.8-10.8)
[2021-10-18 06:49] LABS: Alanine Aminotransferase 428 U/L (0-31); Albumin Level 3.7 g/dL (3.5-5.0); Alkaline Phosphatase 147 U/L (39-117); Anion Gap 9 (12-20); Aspartate Amino Transferase 79 U/L (5-31); Bilirubin Direct 0.8 mg/dL (0.0-0.5); Bilirubin Total 1.3 mg/dL (0.0-1.0); Blood Urea Nitrogen 3 mg/dL (9-16); Calcium 8.8 mg/dL (8.4-10.2); Carbon Dioxide 26 mmol/L (22-29); Chloride 111 mmol/L (96-108); Creatinine Clr Calc Pharmacy 118.3; Estimated Glomerular Filt Rate > 60; Glucose Random 89 mg/dL (60-115); Potassium 4.1 mmol/L (3.3-5.1); Sodium 142 mmol/L (135-145); Total Protein 5.8 g/dL (6.5-8.0)
[2021-10-18 07:45] VITALS: BP 96/62; PULSE 55; RESP 18; TEMP 36.6; O2SAT 98
[2021-10-18 08:17] LABS: Monotest Negative (Negative)
--- NOTE | 2021-10-18 10:11 | P.PNGS_ITS ---
Subjective Subjective Date of Service: 10/18/21 <Raine Winters PA-C - Last Filed: 10/18/21 10:20> 10/18/21 <Gurmeet Almonte MD - Last Filed: 10/18/21 16:05> Interval history: Upset, anxious that there is no real plan. Sister in room. RUQ pain continues. <Raine Winters PA-C - Last Filed: 10/18/21 10:20> Physical Exam Vital Signs: Vital Signs: Last Vital Signs Temp 97.9 F 10/18/21 07:45 Pulse 55 10/18/21 07:45 Resp 18 10/18/21 07:45 BP 96/62 10/18/21 07:45 Pulse Ox 98 10/18/21 07:45 BMI result Body Mass Index 25.5 <AMBERLY Maya Last Filed: 10/18/21 10:20> Const: General: comfortable, no acute distress and alert <Raine Winters PA-C - Last Filed: 10/18/21 10:20> Orientation/consciousness: patient oriented x3 <Raine Winters PA-C - Last Filed: 10/18/21 10:20> Resp: Effort & Inspection: normal respiratory effort <AMBERLY Maya Last Filed: 10/18/21 10:20> GI: Inspection: No distended <Raine Winters PA-C - Last Filed: 10/18/21 10:20> Palpation (GI): Soft to palpation, Tenderness to palpation present (GI) in the RUQ, no guarding and not rigid <Raine Winters PA-C - Last Filed: 10/18/21 10:20> Percussion: Yes normal to percussion <AMBERLY Maya Last Filed: 10/18/21 10:20> Skin: General skin exam: no rashes or lesions noted <AMBERLY Maya Last Filed: 10/18/21 10:20> Neuro: General: patient oriented x3 <AMBERLY Maya Last Filed: 10/18/21 10:20> Extrem: General: Yes no clubbing, cyanosis or edema <Raine Winters PA-C - Last Filed: 10/18/21 10:20> Objective Data Active Medications Acetaminophen (Acetaminophen 325 Mg Tablet) 650 mg PO Q6H PRN PRN Reason: Pain, Mild (Pain Scale 1-3) Last Admin: 10/17/21 10:17 Dose: 650 mg Documented by: FRANCESCO Piperacillin Sod/Tazobactam (Sod 3.375 gm/ Sodium Chloride) 50 mls @ 100 mls/hr IV Q6H [facility] Last Infusion: 10/18/21 09:57 Dose: 0 mls/hr Documented by: JANETH Sodium Chloride (Ns) 1,000 mls @ 100 mls/hr IVCONT .Q10H [facility] Last Admin: 10/18/21 06:16 Dose: 100 mls/hr Documented by: NICKY Cefotetan Disodium 2 gm/ (Sodium Chloride) 50 mls @ 100 mls/hr IV PREOP ONE Stop: 10/19/21 10:37 Morphine Sulfate (Morphine Sulfate 4 Mg/Ml Cartridge) 4 mg IVPUSH Q4H PRN; Protocol PRN Reason: Pain, Severe (Pain Scale 7-10) Last Admin: 10/15/21 00:26 Dose: 4 mg Documented by: TJ Ondansetron HCl (Ondansetron Hcl 4 Mg/2 Ml Vial) 4 mg IVPUSH Q8H PRN PRN Reason: Nausea and Vomiting Last Admin: 10/17/21 05:59 Dose: 4 mg Documented by: NICKY Pharmacy Consult (Consult Rx Perform Med Rec) 1 each MISCELLANE ONCE PRN PRN Reason: Consult order Sodium Chloride (0.9 % Sodium Chloride Flush 3 Ml Syringe) 3 ml IVFLUSH QSHIFT [facility] Last Admin: 10/18/21 09:57 Dose: Not Given Documented by: JANETH Non-Admin Reason: IV Running <Raine Winters PA-C - Last Filed: 10/18/21 10:20> Labs CBC & Chem 7: : 10/18/21 05:58 10/18/21 05:58 <Raine Winters PA-C - Last Filed: 10/18/21 10:20> Labs: Laboratory Results - last 24 hr 10/17/21 10/18/21 10/18/21 17:49 05:58 05:58 MCV 91.7 MCH 30.6 MCHC 33.3 RDW 13.0 Plt Count 216 MPV 10.4 Absolute Nucleated RBC 0.000 Nucleated RBC % (auto) 0.0 Anion Gap 9 L Estim Creat Clear Calc 118.3 Estimated GFR > 60 Random Glucose 89 Calcium 8.8 D Total Bilirubin 1.3 H Direct Bilirubin 0.8 H AST 79 H ALT 428 H Alkaline Phosphatase 147 H Total Protein 5.8 L Albumin 3.7 Monoscreen Negative <Raine Winters PA-C - Last Filed: 10/18/21 10:20> Procedures Date of Service Date of Service: 10/18/21 <Raine Winters PA-C - Last Filed: 10/18/21 10:20> Progress Note: A&P Assessment and plan (1) Cholelithiasis: Status: Acute <Raine Winters PA-C - Last Filed: 10/18/21 10:20> Assessment and Plan: She continues to have right upper quadrant pain Bilirubin has trended down again to 1.3 HIDA scan does not show cholecystitis The patient and her family feel that she will be unable to go home with this pain In the absence of any other identifiable etiology, I explained the option of proceeding with cholecystectomy I discussed the technique of laparoscopic cholecystectomy and possible open cholecystectomy I reviewed the risks including but not limited to bleeding, infections, injury to bowel, injury to the liver and the bile duct, as well as the benefits and alternatives She understands that we are uncertain as to why her bilirubin was elevated on admission with the negative MRCP She wants to proceed with cholecystectomy Her sister Sandra was with her during the entire discussion <Gurmeet Almonte MD - Last Filed: 10/18/21 16:05> Plan 26 year old female admitted with RUQ pain found to have elevated LFTs. Has had extensive work up without any real cause for pain, elevated LFTs. HIDA negative yesterday. Pain persists. Extensive discussion with sister and patient by Dr. Almonte and policy writer typist regarding next steps. Given the gallstones and she continues to be symptomatic without any other identifiable etiology of RUQ pain/transaminitis, next step would be to proceed with laparoscopic cholecystectomy, possible open. She and her sister would like this to be during her stay. Will plan for tomorrow as long as LFTs continue to improve. Patient and family in agreement. Will add onto the OR schedule for tomorrow. Can have low fat diet today, NPO after midnight. <Raine Winters PA-C - Last Filed: 10/18/21 10:20> Time Spent With Patient Time: Total time spent is greater than 50% in coordination of care (as documented) at patient's floor/unit and/or counseling patient: <Raine Winters PA-C - Last Filed: 10/18/21 10:20> Quality Stroke Does the patient have a stroke diagnosis?: No <Raine Winters PA-C - Last Filed: 10/18/21 10:20> VTE Prior VTE?: No <Raine Winters PA-C - Last Filed: 10/18/21 10:20> VTE Risk Level:: Medical - moderate - high <Raine Winters PA-C - Last Filed: 10/18/21 10:20> VTE Device Contraindication: N/A - Device Ordered <Raine Winters PA-C - Last Filed: 10/18/21 10:20> VTE Drug Contraindication: Treatment Not Indicated <Raine Winters PA-C - Last Filed: 10/18/21 10:20>
[2021-10-18 10:44] LABS: Alanine Aminotransferase 456 U/L (0-31); Alkaline Phosphatase 161 U/L (39-117); Aspartate Amino Transferase 79 U/L (5-31); Bilirubin Total 1.7 mg/dL (0.0-1.0); Total Protein 6.3 g/dL (6.5-8.0)
--- NOTE | 2021-10-18 10:53 | P.PNIM_ITS ---
Subjective Subjective Date of Service: 10/18/21 Interval History: seen in follow-up for acute cholelithiasis/cholecystitis interval history: Persistent pain but better, LFTs are trending down. Review of Systems some abd pain no fever Physical Exam Vital Signs: Vital Signs: Last Vital Signs Temp 97.9 F 10/18/21 07:45 Pulse 55 10/18/21 07:45 Resp 18 10/18/21 07:45 BP 96/62 10/18/21 07:45 Pulse Ox 98 10/18/21 07:45 BMI result Body Mass Index 25.5 Const: Other: General: AO X 3, no acute distress Resp: CTA bilateral CVS: S1,S2,RRR GI: +BS, NT, no distention Skin: No rash Neuro: motor grossly intact Psych: appropriate affect Objective Data Active Medications Acetaminophen (Acetaminophen 325 Mg Tablet) 650 mg PO Q6H PRN PRN Reason: Pain, Mild (Pain Scale 1-3) Last Admin: 10/17/21 10:17 Dose: 650 mg Documented by: FRANCESCO Piperacillin Sod/Tazobactam (Sod 3.375 gm/ Sodium Chloride) 50 mls @ 100 mls/hr IV Q6H [facility] Last Infusion: 10/18/21 09:57 Dose: 0 mls/hr Documented by: JANETH Sodium Chloride (Ns) 1,000 mls @ 100 mls/hr IVCONT .Q10H [facility] Last Admin: 10/18/21 06:16 Dose: 100 mls/hr Documented by: NICKY Cefotetan Disodium 2 gm/ (Sodium Chloride) 50 mls @ 100 mls/hr IV PREOP ONE Stop: 10/19/21 10:37 Morphine Sulfate (Morphine Sulfate 4 Mg/Ml Cartridge) 4 mg IVPUSH Q4H PRN; Protocol PRN Reason: Pain, Severe (Pain Scale 7-10) Last Admin: 10/15/21 00:26 Dose: 4 mg Documented by: TJ Ondansetron HCl (Ondansetron Hcl 4 Mg/2 Ml Vial) 4 mg IVPUSH Q8H PRN PRN Reason: Nausea and Vomiting Last Admin: 10/17/21 05:59 Dose: 4 mg Documented by: NICKY Pharmacy Consult (Consult Rx Perform Med Rec) 1 each MISCELLANE ONCE PRN PRN Reason: Consult order Sodium Chloride (0.9 % Sodium Chloride Flush 3 Ml Syringe) 3 ml IVFLUSH QSHIFT [facility] Last Admin: 10/18/21 09:57 Dose: Not Given Documented by: JANETH Non-Admin Reason: IV Running Labs CBC & Chem 7: 10/18/21 05:58 10/18/21 05:58 Labs: Laboratory Results - last 24 hr 10/17/21 10/18/21 10/18/21 17:49 05:58 05:58 MCV 91.7 MCH 30.6 MCHC 33.3 RDW 13.0 Plt Count 216 MPV 10.4 Absolute Nucleated RBC 0.000 Nucleated RBC % (auto) 0.0 Anion Gap 9 L Estim Creat Clear Calc 118.3 Estimated GFR > 60 Random Glucose 89 Calcium 8.8 D Total Bilirubin 1.3 H Direct Bilirubin 0.8 H AST 79 H ALT 428 H Alkaline Phosphatase 147 H Total Protein 5.8 L Albumin 3.7 Monoscreen Negative 10/18/21 10:18 MCV MCH MCHC RDW Plt Count MPV Absolute Nucleated RBC Nucleated RBC % (auto) Anion Gap Estim Creat Clear Calc Estimated GFR Random Glucose Calcium Total Bilirubin 1.7 H Direct Bilirubin 1.0 H AST 79 H ALT 456 H Alkaline Phosphatase 161 H Total Protein 6.3 L Albumin 4.0 Monoscreen Assessment and Plan (1) Cholecystitis: Status: Acute (2) Abdominal pain: Status: Acute Plan 26-year-old female with no significant past medical history presents to the hospital with abdominal pain found to have transaminitis as well as evidence of cholecystitis 1.acute vs ch . cholecystitis- LFTS trending down, for CCy tomorrow continue iv antibiotics for now 2. Transaminitis--Trending down. Hep B, C negative, Hep A and Gerry woodall pending. 3. Anxiety: PRN ativan or Hydroxyzine DVT prophylaxis:? SCDs patient of possible surgical intervention need for inpatient : transamnitis Above management discussed with patient and patient further in detail length, currently surgical intervention is deferred until LFTs trending down. Inpatient need: acute cholecystitis and for surgery tomorrow Quality Stroke Does the patient have a stroke diagnosis?: No VTE Prior VTE?: No VTE Risk Level:: Medical - moderate - high VTE Device Contraindication: N/A - Device Ordered VTE Drug Contraindication: Treatment Not Indicated
[2021-10-18 12:00] VITALS: BP 126/77; PULSE 60; RESP 18; TEMP 36.9; O2SAT 99
--- NOTE | 2021-10-18 14:04 | MHC.CM.PN ---
CURRENT PLAN IS NPO AT MIDNIGHT LABS IN A.M. IF ALL LFTS AND BILIRUBIN TRENDING DOWN STILL, PLAN IS FOR SURGICAL INTERVENTION TOMORROW PATIENT AND FAMILY (IN ROOM) REMINDED MULTIPLE TIMES THROUGHOUT THE DAY
[2021-10-18 19:05] VITALS: BP 111/73; PULSE 62; RESP 18; TEMP 36.7; O2SAT 100
[2021-10-18] MEDS: ondansetron HCL 4 MG/2 ML VIAL IVPUSH (23:31)
[2021-10-18] MEDS: 0.9 % Sodium Chloride Flush 3 ML SYRINGE IVFLUSH (23:33)
[2021-10-18 23:36] VITALS: BP 123/74; PULSE 50; RESP 15; TEMP 36.8; O2SAT 97
[2021-10-19] VITALS (10 sets, daily range): BP systolic 103–130; BP diastolic 59–94; PULSE 53–92; RESP 14–20; TEMP 36.4–37.2; O2SAT 95–100
[2021-10-19 03:59] LABS: Hepatitis A Antibody IgM 0.21 Index (0-0.79); ~Hepatitis A Antibody IgM Nonreactive (Nonreactive)
[2021-10-19 05:02] LABS: EBV-NA IgG Index <18.00 U/mL; EBV-VCA IgG Ab <18.00 U/mL; EBV-VCA IgM Ab <36.00 U/mL
[2021-10-19] MEDS: Piperacillin Sodium/Tazobactam 3.375 GM in 0.9 % Sodium Chloride 50 ML IV ×4 (05:56→23:44)
[2021-10-19 06:52] LABS: Alanine Aminotransferase 346 U/L (0-31); Albumin Level 3.7 g/dL (3.5-5.0); Alkaline Phosphatase 152 U/L (39-117); Aspartate Amino Transferase 61 U/L (5-31); Bilirubin Direct 0.7 mg/dL (0.0-0.5); Bilirubin Total 1.2 mg/dL (0.0-1.0); Total Protein 5.9 g/dL (6.5-8.0)
[2021-10-19] MEDS: 0.9 % Sodium Chloride 1,000 ML 100 ML IVCONT (09:06)
--- NOTE | 2021-10-19 10:03 | P.PNIM_ITS ---
Subjective Subjective Date of Service: 10/19/21 Interval History: seen in follow-up for acute cholelithiasis/cholecystitis interval history: , LFTs are trending down. CCY today Review of Systems some abd pain no fever Physical Exam Vital Signs: Vital Signs: Last Vital Signs Temp 98.9 F 10/19/21 07:37 Pulse 53 10/19/21 07:37 Resp 20 10/19/21 07:37 BP 107/70 10/19/21 07:37 Pulse Ox 98 10/19/21 07:37 BMI result Body Mass Index 25.5 Const: Other: General: AO X 3, no acute distress Resp: CTA bilateral CVS: S1,S2,RRR GI: +BS, NT, no distention Skin: No rash Neuro: motor grossly intact Psych: appropriate affect Objective Data Active Medications Acetaminophen (Acetaminophen 325 Mg Tablet) 650 mg PO Q6H PRN PRN Reason: Pain, Mild (Pain Scale 1-3) Last Admin: 10/17/21 10:17 Dose: 650 mg Documented by: FRANCESCO Piperacillin Sod/Tazobactam (Sod 3.375 gm/ Sodium Chloride) 50 mls @ 100 mls/hr IV Q6H [facility] Last Infusion: 10/19/21 06:39 Dose: 0 mls/hr Documented by: JESSICA Cefotetan Disodium 2 gm/ (Sodium Chloride) 50 mls @ 100 mls/hr IV PREOP ONE Stop: 10/19/21 10:37 Morphine Sulfate (Morphine Sulfate 4 Mg/Ml Cartridge) 4 mg IVPUSH Q4H PRN; Protocol PRN Reason: Pain, Severe (Pain Scale 7-10) Last Admin: 10/15/21 00:26 Dose: 4 mg Documented by: TJ Ondansetron HCl (Ondansetron Hcl 4 Mg/2 Ml Vial) 4 mg IVPUSH Q8H PRN PRN Reason: Nausea and Vomiting Last Admin: 10/18/21 23:31 Dose: 4 mg Documented by: JESSICA Pharmacy Consult (Consult Rx Perform Med Rec) 1 each MISCELLANE ONCE PRN PRN Reason: Consult order Sodium Chloride (0.9 % Sodium Chloride Flush 3 Ml Syringe) [facility] Last Admin: 10/19/21 08:15 Dose: Not Given Documented by: FRANCESCO Non-Admin Reason: IV Running Labs CBC & Chem 7: 10/18/21 05:58 10/18/21 05:58 Labs: Laboratory Results - last 24 hr 10/15/21 10/17/21 10/18/21 01:03 17:49 10:18 Total Bilirubin 1.7 H Direct Bilirubin 1.0 H AST 79 H ALT 456 H Alkaline Phosphatase 161 H Total Protein 6.3 L Albumin 4.0 EBV Capsid Ag IgG Ab <18.00 EBV Capsid Ag IgM Index <36.00 EBV Nuclear Ag IgG Indx <18.00 EBV Antibody Interp SEE NOTE Hepatitis A IgM Ab Nonreactive 10/19/21 05:54 Total Bilirubin 1.2 H Direct Bilirubin 0.7 H AST 61 H ALT 346 H Alkaline Phosphatase 152 H Total Protein 5.9 L Albumin 3.7 EBV Capsid Ag IgG Ab EBV Capsid Ag IgM Index EBV Nuclear Ag IgG Indx EBV Antibody Interp Hepatitis A IgM Ab Assessment and Plan (1) Biliary colic: Status: Acute Plan 26-year-old female with no significant past medical history presents to the hospital with abdominal pain found to have transaminitis as well as evidence of cholecystitis 1.acute vs ch . cholecystitis- LFTS trending down, for CCy today continue iv antibiotics for now 2. Transaminitis--Trending down. Hep B, C negative, Hep A and Gerry woodall pending. 3. Anxiety: PRN ativan or Hydroxyzine DVT prophylaxis:? SCDs patient of possible surgical intervention need for inpatient : transamnitis Above management discussed with patient and patient further in detail length, currently surgical intervention is deferred until LFTs trending down. Inpatient need: acute cholecystitis and for surgery tomorrow Quality Stroke Does the patient have a stroke diagnosis?: No VTE Prior VTE?: No VTE Risk Level:: Medical - moderate - high VTE Device Contraindication: N/A - Device Ordered VTE Drug Contraindication: Treatment Not Indicated
--- NOTE | 2021-10-19 11:45 | MHC.CM.PN ---
PLAN IS [facility] TOMORROW 10/20/21
--- NOTE | 2021-10-19 13:45 | P.CONAN_ITS ---
HPI - Anesthesia Eval Consult details Narrative: 26 yo female patient for laparoscopic cholecystectomy PMFSH Active Problems Active Problems: All Active Problems (Updated 10/15/21 @ 14:23 by Angela Fernandez MD) Biliary colic (Acute) Cholecystitis (Acute) Abdominal pain (Acute) Cholelithiasis (Acute) Transaminitis (Acute) Urinary tract infection (Acute) GERD (gastroesophageal reflux disease) (Acute) Meniere's disease of right ear (Acute) Mild major depression, single episode (Acute) GERD (gastroesophageal reflux disease) (Acute) Tachycardia (Acute) Past Medical History Medical History GERD (gastroesophageal reflux disease) Meniere's disease of right ear Mild major depression, single episode Tachycardia Family History Family History Mother Arthritis Father No problems noted. Family history of problems with anesthesia: No (Patient states grandfather in his 50sin the 1980s following gallbladder surgery. Details unknown ) Surgical History Surgical History History of appendectomy Previous section History of Problems with Anesthesia: No Social History Social History Household Members: Unknown / Unable to assess Housing: Unknown / Unable to assess Do you presently have visiting nurse or other home services: No Unable to assess alcohol history related to: Unknown Alcohol intake: current Alcohol intake frequency: holidays/special occasions only Patient Tobacco Use Status: Former Tobacco user Tobacco use type: Cigarette e-Cigarette/Vaping Use: Never Used Second Hand Smoke Exposure: No service: No Current occupational status: employed Current occupational exposures/hazards: No Meds Allergies Allergy/AdvReac Type Severity Reaction Status Date / Time ciprofloxacin [From CIPRO] Allergy Intermediate TACHYCARDIA Verified 07/12/21 11:02 Sulfa (Sulfonamide Allergy Intermediate shortness Verified 07/12/21 11:02 Antibiotics) of breath sulfamethoxazole Allergy Unknown Verified 10/14/21 19:10 [From Bactrim] trimethoprim [From Bactrim] Allergy Unknown Verified 10/14/21 19:10 fish/shellfish Allergy Severe anaphylaxis Uncoded 04/21/21 13:27 SEAFOOD Allergy Severe ANAPHALXYS Uncoded 04/21/21 13:27 Active Medications: Current Medications Acetaminophen (Acetaminophen 325 Mg Tablet) 650 mg PO Q6H PRN PRN Reason: Pain, Mild (Pain Scale 1-3) Last Admin: 10/17/21 10:17 Dose: 650 mg Documented by: Piperacillin Sod/Tazobactam (Sod 3.375 gm/ Sodium Chloride) 50 mls @ 100 mls/hr IV Q6H [facility] Last Infusion: 10/19/21 12:20 Dose: Infused Documented by: Morphine Sulfate (Morphine Sulfate 4 Mg/Ml Cartridge) 4 mg IVPUSH Q4H PRN; Protocol PRN Reason: Pain, Severe (Pain Scale 7-10) Last Admin: 10/15/21 00:26 Dose: 4 mg Documented by: Ondansetron HCl (Ondansetron Hcl 4 Mg/2 Ml Vial) 4 mg IVPUSH Q8H PRN PRN Reason: Nausea and Vomiting Last Admin: 10/18/21 23:31 Dose: 4 mg Documented by: Pharmacy Consult (Consult Rx Perform Med Rec) 1 each MISCELLANE ONCE PRN PRN Reason: Consult order Sodium Chloride (0.9 % Sodium Chloride Flush 3 Ml Syringe) 3 ml IVFLUSH QSHIFT [facility] Last Admin: 10/19/21 08:15 Dose: Not Given Documented by: Home Medications Medication Instructions Recorded Confirmed Last Taken Type No Known Home Meds 10/15/21 10/15/21 Unknown History Exam Exam Date and Time: October 19, 2021 1345 Height,Weight and Vital Signs: Height 5 ft 7 in Weight 74 kg Last Vital Signs Temp 98.1 F 10/19/21 13:21 Pulse 71 10/19/21 13:21 Resp 18 10/19/21 13:21 BP 121/78 10/19/21 13:21 Pulse Ox 95 10/19/21 13:21 Pertinent Lab Results Pertinent Lab Results: Laboratory Tests 10/14/21 10/14/21 10/14/21 19:10 19:10 19:15 WBC 3.7 L RBC 4.42 Hgb 13.6 Hct 40.7 MCV 92.1 MCH 30.8 MCHC 33.4 RDW 13.2 Plt Count 238 MPV 10.0 Immature Gran % (Auto) 0.3 Neut % (Auto) 51.9 Lymph % (Auto) 33.3 [place] % (Auto) 11.2 H Eos % (Auto) 2.5 Baso % (Auto) 0.8 Lymph # (Auto) 1.2 [place] # (Auto) 0.4 Eos # (Auto) 0.1 Baso # (Auto) 0.0 Abs Immat Gran (auto) 0.01 Absolute Neuts (auto) 1.9 L Absolute Nucleated RBC 0.000 Nucleated RBC % (auto) 0.0 PT INR Sodium 142 Potassium 3.9 Chloride 107 Carbon Dioxide 30 H Anion Gap 9 L BUN 9 Creatinine 0.82 Estim Creat Clear Calc 111.1 Estimated GFR > 60 Random Glucose 96 Calcium 9.7 Total Bilirubin 3.2 H Direct Bilirubin AST 976 H ALT 1490 H Alkaline Phosphatase 150 H D Total Protein 7.0 Albumin 4.4 Lipase 21 Urine Color YELLOW Urine Appearance CLOUDY Urine pH 7.0 Ur Specific [place] 1.020 Urine Protein 1+ H Urine Glucose (UA) NEG Urine Ketones 5 Urine Blood 3+ H Urine Nitrite NEG Ur Leukocyte Esterase NEG Urine RBC TNTC H Urine WBC 0-2 Ur Squamous Epith Cells NONE Amorphous Sediment 2+ Urine Bacteria TRACE Urine Test Salicylates Acetaminophen COVID-19 (EDWINA) COVID-19 Clin Com EBV Capsid Ag IgG Ab EBV Capsid Ag IgM Index EBV Nuclear Ag IgG Indx EBV Antibody Interp Hepatitis A IgM Ab Hep Bs Antigen Hep Bs Antibody Hep B Core Total Ab Hepatitis C Ab (EIA) Monoscreen Influenza Type A (JOLYNN) Influenza Type B (JOLYNN) Influenza A & B Note 10/14/21 10/14/21 10/14/21 19:15 19:49 19:49 WBC RBC Hgb Hct MCV MCH MCHC RDW Plt Count MPV Immature Gran % (Auto) Neut % (Auto) Lymph % (Auto) [place] % (Auto) Eos % (Auto) Baso % (Auto) Lymph # (Auto) [place] # (Auto) Eos # (Auto) Baso # (Auto) Abs Immat Gran (auto) Absolute Neuts (auto) Absolute Nucleated RBC Nucleated RBC % (auto) PT INR Sodium Potassium Chloride Carbon Dioxide Anion Gap BUN Creatinine Estim Creat Clear Calc Estimated GFR Random Glucose Calcium Total Bilirubin Direct Bilirubin AST ALT Alkaline Phosphatase Total Protein Albumin Lipase Urine Color Urine Appearance Urine pH Ur Specific [place] Urine Protein Urine Glucose (UA) Urine Ketones Urine Blood Urine Nitrite Ur Leukocyte Esterase Urine RBC Urine WBC Ur Squamous Epith Cells Amorphous Sediment Urine Bacteria Urine Test NEGATIVE Salicylates Acetaminophen COVID-19 (EDWINA) Negative COVID-19 Clin Com See Note EBV Capsid Ag IgG Ab EBV Capsid Ag IgM Index EBV Nuclear Ag IgG Indx EBV Antibody Interp Hepatitis A IgM Ab Hep Bs Antigen Hep Bs Antibody Hep B Core Total Ab Hepatitis C Ab (EIA) Monoscreen Influenza Type A (JOLYNN) Negative Influenza Type B (JOLYNN) Negative Influenza A & B Note See Note 10/15/21 10/15/21 10/15/21 01:03 01:03 05:49 WBC 2.9 L RBC 3.63 L Hgb 11.3 L Hct 34.6 L MCV 95.3 MCH 31.1 MCHC 32.7 RDW 13.2 Plt Count 190 MPV 10.6 Immature Gran % (Auto) 0.0 Neut % (Auto) 34.7 L Lymph % (Auto) 50.7 H [place] % (Auto) 10.4 Eos % (Auto) 3.5 Baso % (Auto) 0.7 Lymph # (Auto) 1.5 [place] # (Auto) 0.3 Eos # (Auto) 0.1 Baso # (Auto) 0.0 Abs Immat Gran (auto) 0.00 Absolute Neuts (auto) 1.0 L Absolute Nucleated RBC 0.000 Nucleated RBC % (auto) 0.0 PT INR Sodium Potassium Chloride Carbon Dioxide Anion Gap BUN Creatinine Estim Creat Clear Calc Estimated GFR Random Glucose Calcium Total Bilirubin Direct Bilirubin AST ALT Alkaline Phosphatase Total Protein Albumin Lipase Urine Color Urine Appearance Urine pH Ur Specific [place] Urine Protein Urine Glucose (UA) Urine Ketones Urine Blood Urine Nitrite Ur Leukocyte Esterase Urine RBC Urine WBC Ur Squamous Epith Cells Amorphous Sediment Urine Bacteria Urine Test Salicylates < 5.0 L Acetaminophen < 1 COVID-19 (EDWINA) COVID-19 Clin Com EBV Capsid Ag IgG Ab EBV Capsid Ag IgM Index EBV Nuclear Ag IgG Indx EBV Antibody Interp Hepatitis A IgM Ab Nonreactive Hep Bs Antigen Negative Hep Bs Antibody NONREACTIVE Hep B Core Total Ab Nonreactive Hepatitis C Ab (EIA) Nonreactive Monoscreen Influenza Type A (JOLYNN) Influenza Type B (JOLYNN) Influenza A & B Note 10/15/21 10/16/21 10/16/21 05:49 05:58 05:58 WBC 3.3 L RBC 3.75 L Hgb 11.4 L Hct 35.1 L MCV 93.6 MCH 30.4 MCHC 32.5 RDW 13.1 Plt Count 196 MPV 10.6 Immature Gran % (Auto) Neut % (Auto) Lymph % (Auto) [place] % (Auto) Eos % (Auto) Baso % (Auto) Lymph # (Auto) [place] # (Auto) Eos # (Auto) Baso # (Auto) Abs Immat Gran (auto) Absolute Neuts (auto) Absolute Nucleated RBC 0.000 Nucleated RBC % (auto) 0.0 PT INR Sodium 143 141 Potassium 3.8 3.8 Chloride 113 H 113 H Carbon Dioxide 26 20 L Anion Gap 8 L 12 BUN 9 10 Creatinine 0.73 0.72 Estim Creat Clear Calc 124.8 126.6 Estimated GFR > 60 > 60 Random Glucose 84 66 Calcium 8.1 L D 8.0 L Total Bilirubin 1.7 H 1.5 H Direct Bilirubin 0.9 H AST 451 H 175 H ALT 944 H 661 H Alkaline Phosphatase 124 H 139 H Total Protein 5.5 L D 5.3 L Albumin 3.6 3.4 L Lipase Urine Color Urine Appearance Urine pH Ur Specific [place] Urine Protein Urine Glucose (UA) Urine Ketones Urine Blood Urine Nitrite Ur Leukocyte Esterase Urine RBC Urine WBC Ur Squamous Epith Cells Amorphous Sediment Urine Bacteria Urine Test Salicylates Acetaminophen COVID-19 (EDWINA) COVID-19 Clin Com EBV Capsid Ag IgG Ab EBV Capsid Ag IgM Index EBV Nuclear Ag IgG Indx EBV Antibody Interp Hepatitis A IgM Ab Hep Bs Antigen Hep Bs Antibody Hep B Core Total Ab Hepatitis C Ab (EIA) Monoscreen Influenza Type A (JOLYNN) Influenza Type B (JOLYNN) Influenza A & B Note 10/16/21 10/16/21 10/17/21 05:58 08:35 05:49 WBC RBC Hgb Hct MCV MCH MCHC RDW Plt Count MPV Immature Gran % (Auto) Neut % (Auto) Lymph % (Auto) [place] % (Auto) Eos % (Auto) Baso % (Auto) Lymph # (Auto) [place] # (Auto) Eos # (Auto) Baso # (Auto) Abs Immat Gran (auto) Absolute Neuts (auto) Absolute Nucleated RBC Nucleated RBC % (auto) PT 14.5 H INR 1.3 H Sodium 141 Potassium 4.6 D Chloride 112 H Carbon Dioxide 23 Anion Gap 11 L BUN 4 L D Creatinine 0.76 Estim Creat Clear Calc 119.9 Estimated GFR > 60 Random Glucose 91 Calcium 8.2 L Total Bilirubin 2.0 H Direct Bilirubin 1.3 H AST 127 H ALT 523 H Alkaline Phosphatase 146 H Total Protein 5.5 L Albumin 3.4 L Lipase Urine Color RED A Urine Appearance TURBID Urine pH 6.0 Ur Specific [place] >= 1.030 H Urine Protein 2+ H Urine Glucose (UA) NEG Urine Ketones >=80 Urine Blood 3+ H Urine Nitrite NEG Ur Leukocyte Esterase NEG Urine RBC TNTC H Urine WBC 0 Ur Squamous Epith Cells TRACE Amorphous Sediment Urine Bacteria TRACE Urine Test Salicylates Acetaminophen COVID-19 (EDWINA) COVID-19 Clin Com EBV Capsid Ag IgG Ab EBV Capsid Ag IgM Index EBV Nuclear Ag IgG Indx EBV Antibody Interp Hepatitis A IgM Ab Hep Bs Antigen Hep Bs Antibody Hep B Core Total Ab Hepatitis C Ab (EIA) Monoscreen Influenza Type A (JOLYNN) Influenza Type B (JOLYNN) Influenza A & B Note 10/17/21 10/17/21 10/18/21 17:49 17:49 05:58 WBC 3.8 L RBC 3.99 L Hgb 12.2 Hct 36.6 L MCV 91.7 MCH 30.6 MCHC 33.3 RDW 13.0 Plt Count 216 MPV 10.4 Immature Gran % (Auto) Neut % (Auto) Lymph % (Auto) [place] % (Auto) Eos % (Auto) Baso % (Auto) Lymph # (Auto) [place] # (Auto) Eos # (Auto) Baso # (Auto) Abs Immat Gran (auto) Absolute Neuts (auto) Absolute Nucleated RBC 0.000 Nucleated RBC % (auto) 0.0 PT INR Sodium Potassium Chloride Carbon Dioxide Anion Gap BUN Creatinine Estim Creat Clear Calc Estimated GFR Random Glucose Calcium Total Bilirubin Direct Bilirubin AST ALT Alkaline Phosphatase Total Protein Albumin Lipase Urine Color Urine Appearance Urine pH Ur Specific [place] Urine Protein Urine Glucose (UA) Urine Ketones Urine Blood Urine Nitrite Ur Leukocyte Esterase Urine RBC Urine WBC Ur Squamous Epith Cells Amorphous Sediment Urine Bacteria Urine Test Salicylates Acetaminophen COVID-19 (EDWINA) COVID-19 Clin Com EBV Capsid Ag IgG Ab <18.00 EBV Capsid Ag IgM Index <36.00 EBV Nuclear Ag IgG Indx <18.00 EBV Antibody Interp SEE NOTE Hepatitis A IgM Ab Hep Bs Antigen Hep Bs Antibody Hep B Core Total Ab Hepatitis C Ab (EIA) Monoscreen Negative Influenza Type A (JOLYNN) Influenza Type B (JOLYNN) Influenza A & B Note 10/18/21 10/18/21 10/19/21 05:58 10:18 05:54 WBC RBC Hgb Hct MCV MCH MCHC RDW Plt Count MPV Immature Gran % (Auto) Neut % (Auto) Lymph % (Auto) [place] % (Auto) Eos % (Auto) Baso % (Auto) Lymph # (Auto) [place] # (Auto) Eos # (Auto) Baso # (Auto) Abs Immat Gran (auto) Absolute Neuts (auto) Absolute Nucleated RBC Nucleated RBC % (auto) PT INR Sodium 142 Potassium 4.1 Chloride 111 H Carbon Dioxide 26 Anion Gap 9 L BUN 3 L Creatinine 0.77 Estim Creat Clear Calc 118.3 Estimated GFR > 60 Random Glucose 89 Calcium 8.8 D Total Bilirubin 1.3 H 1.7 H 1.2 H Direct Bilirubin 0.8 H 1.0 H 0.7 H AST 79 H 79 H 61 H ALT 428 H 456 H 346 H Alkaline Phosphatase 147 H 161 H 152 H Total Protein 5.8 L 6.3 L 5.9 L Albumin 3.7 4.0 3.7 Lipase Urine Color Urine Appearance Urine pH Ur Specific [place] Urine Protein Urine Glucose (UA) Urine Ketones Urine Blood Urine Nitrite Ur Leukocyte Esterase Urine RBC Urine WBC Ur Squamous Epith Cells Amorphous Sediment Urine Bacteria Urine Test Salicylates Acetaminophen COVID-19 (EDWINA) COVID-19 Clin Com EBV Capsid Ag IgG Ab EBV Capsid Ag IgM Index EBV Nuclear Ag IgG Indx EBV Antibody Interp Hepatitis A IgM Ab Hep Bs Antigen Hep Bs Antibody Hep B Core Total Ab Hepatitis C Ab (EIA) Monoscreen Influenza Type A (JOLYNN) Influenza Type B (JOLYNN) Influenza A & B Note Airway Mallampati Class: II TM Dist: >3cm Neck ROM: Full Loose/Missing/Broken Teeth: No Heart: RRR Lungs: CTAB Assessment and Plan Assessment Anesthesia Assessment: Anesthesia Plan Discussed and Chart Reviewed Final Anesthetic Review Family History of Problems with Anesthesia: No (Patient states grandfather in his 50sin the 1980s following gallbladder surgery. Details unknown ) History of Problems with Anesthesia: No NPO: Yes ASA Class: II Final Preanesthetic Review: No Changes in Pt Med Stat, Meds/Allgs Chart Reviewed, Consent Obtained/Reviewed and Anes Risks/Benef Reviewed Patient Risk: Low Procedure Risk: Low Assessment/Block/Sedation in SS: Assess/Block/Sedation-SS Anesthetic Plan Anesthetic Plan: GA Disposition: Standard PACU
--- NOTE | 2021-10-19 15:26 | P.OP_ITS ---
Operative Note Operative Note Date of Service: 10/19/21 Narrative: Prep diagnosis: Symptomatic gallstones Postop diagnosis: The same, with signs of chronic cholecystitis Procedure: Laparoscopic cholecystectomy Surgeon: Gurmeet Almonte MD assistant casino shift manager: ROBBIE Winters The patient is a 26 year female admitted because of right upper quadrant pain. She had gallstones on imaging studies. However, HIDA scan did not show cholecystitis. She had elevated bilirubin but her MRCP did not show any the stones or any evidence of obstruction. Her bilirubin and eventually trended down. She however continued to have right upper quadrant pain. She wanted to proceed with cholecystectomy in view of this. She understood that we were uncertain as to the exact etiology of her elevated bilirubin out evidence of CBD obstruction. She understood the risks, benefits, and alternatives of laparoscopic cholecystectomy and had given consent. She was brought to the operating room placed supine on table under general anesthesia via endotracheal tube. The abdomen is prepped and draped in the usual sterile fashion. A surgical time-out was done. The patient received Cefotan 2 g IV preoperatively I made a short supraumbilical incision using blade 15. This was carried down through the full-thickness of the skin subcutaneous fat down to the fascia. The fascia was incised. The peritoneum was entered and through this incision a Peña port was introduced. Pneumoperitoneum was introduced to a pressure of 15 mmHg and from here on the rest of the procedure was done under vision with the laparoscope. Laparoscopic visualization a proceeded to insert a 5/12 mm port in the epigastric area below the subcostal margin through a small stab incision. Two 5 mm port introduced a small incision below the subcostal margin along the anterior axillary line and the midclavicular line. Graspers were placed through these working ports. The patient was placed in head-up and [id number] position. The gallbladder was seen. There was note of a lot adherent omentum surrounding the anterior wall so we had to carefully free this up with blunt dissection with the [place] dissector to peel off these adhesions from the anterior wall. We were able to therefore clear up the anterior wall and I was able to apply a grasper at the fundus. This was used to retract the gallbladder cephalad. Another grasper was applied on the pouch of the gallbladder to retract this laterally. At this point therefore the gallbladder was being retracted in the cephalad lateral fashion to put the area the cystic duct on stretch. The gallbladder did not appear inflamed. The presence of adhesions however suggested chronic cholecystitis The lymph node of [place] was seen and proceeded to gently dissect this area the [place] dissector because there was a lot of some fibrous adhesions surrounding this. With careful dissection using the [place] dissector, I was able to eventually identify the cystic duct. I continued to dissect this and by doing so I was able to have a critical view of the hepatocystic triangle. The cystic artery was also clearly seen. The confluence of the neck of the gallbladder with the cystic duct was confirmed. With this achieved, applied clips on the cystic duct with 2 clips being applied distally. The cystic duct was transected in clips with Endo scissors. I applied clips on the cystic artery as well and this was transected between clips with Endo scissors. I gently the lymph node of [place] off of the rest of the adjacent gallbladder wall until was able to visualize the rest of the hilum. We dissected across the hilum with the m electrocautery spatula at until is reach the interface of the gallbladder wall and the liver bed. I used electrocautery as well to incise the peritoneum of the gallbladder. I the gallbladder from the liver bed using a combination of blunt dissection with the tip of the spatula and electrocautery itself along a well-defined plane of dissection. We proceeded with this dissection all the way to the fundus until the entire gallbladder was completely from the liver bed the gallbladder was retrieved through an endobag through the umbilical incision. I reinserted all ports and re-insufflated. Mid all 4 quadrants. There was no other pathology. There was no evidence of any bowel injury or any bleeding. Is hemostasis was confirmed, I desufflated the port sites. I removed all ports under vision with the laparoscope. The umbilical port was removed last. The fascia of the umbilical incision was closed with [id number] Dexon 0 stitch. Skin closure was achieved on all incisions using Dexon 4-0 subcuticular running sutures. Steri-Strips and dressings were applied. All incisions were infiltrated with Marcaine 0.5% for postop analgesia and the procedure was completed. The patient tolerated well. The complication noted. Initial and final counts of sponges and instruments were correct. Estimated blood loss was about 25 cc The patient was extubated without difficulty and transferred to the recovery room with stable vital signs.
--- NOTE | 2021-10-19 15:27 | PM.OP ---
Brief Operative Note Date of Service: 10/19/21 <Raine Winters PA-C - Last Filed: 10/19/21 15:29> Pre-op diagnosis: gallstones <Raine Winters PA-C - Last Filed: 10/19/21 15:29> Post-op diagnosis: same <Raine Winters PA-C - Last Filed: 10/19/21 15:29> Procedure: laparoscopic cholecystectomy <Raine Winters PA-C - Last Filed: 10/19/21 15:29> Implants: None <Raine Winters PA-C - Last Filed: 10/19/21 15:29> Surgeon: DYANA MARSH MD <Raine Winters PA-C - Last Filed: 10/19/21 15:29> Anesthesia: GETA <Raine Winters PA-C - Last Filed: 10/19/21 15:29> Was an Computer Systems Integrator used for this Procedure?: Yes <Raine Winters PA-C - Last Filed: 10/19/21 15:29> No <Dyana Marsh MD - Last Filed: 10/19/21 15:34> Computer Systems Integrator: Raine Winters <AMBERLY Maya Last Filed: 10/19/21 15:29> Estimated blood loss (mL): 20 <AMBERLY Maya Last Filed: 10/19/21 15:29> Pathology: other (gallbladder) <AMBERLY Maya Last Filed: 10/19/21 15:29> Condition: stable <AMBERLY Maya Last Filed: 10/19/21 15:29> Disposition: PACU <AMBERLY Maya Last Filed: 10/19/21 15:29>
[2021-10-19] MEDS: HYDROmorphone HCl 0.5 MG/0.5 ML SYRINGE 0.25 MG IVPUSH (16:10)
--- NOTE | 2021-10-19 17:24 | PM.EVENT ---
Event Note Date of Service: 10/19/21 Event Note: seen postop underwent uneventful lap khoa this afternoon good pain control stable VS looks well abd soft pain mgt likely home tomorrow mother updated by phone
[2021-10-19] MEDS: 0.9 % Sodium Chloride Flush 3 ML SYRINGE IVFLUSH ×2 (17:55→23:44)
[2021-10-19] MEDS: oxyCODONE HCl Immed Release 5 MG TABLET 10 MG PO (23:54)
[2021-10-20] VITALS: BP 108/58; PULSE 88; RESP 18; TEMP 36.1; O2SAT 97
[2021-10-20 01:00] VITALS: RESP 18
[2021-10-20 01:14] VITALS: RESP 18
[2021-10-20 04:06] VITALS: BP 99/51; PULSE 89; RESP 18; TEMP 36.6; O2SAT 96
[2021-10-20] MEDS: Piperacillin Sodium/Tazobactam 3.375 GM in 0.9 % Sodium Chloride 50 ML IV (06:07)
--- NOTE | 2021-10-20 07:17 | HO.POSTANES ---
Post Anesthesia Evaluation Post Anesthesia Evaluation Vital Signs: Vital Signs Temp Pulse Resp BP Pulse Ox 10/20/21 04:06 98 F 89 18 99/51 L 96 10/20/21 01:14 18 10/20/21 01:00 18 10/20/21 00:00 97 F 88 18 108/58 L 97 Anesthesia: General Endotracheal-GETA Mental Status: Awake Pain Control: Satisfactory Nausea/Vomiting: None Hydration: Adequate Anesthesia-Related Issues: No Anes. Related Issues
[2021-10-20 07:46] VITALS: BP 116/64; PULSE 82; RESP 18; TEMP 36.6; O2SAT 100
[2021-10-20] MEDS: Acetaminophen 325 MG TABLET 650 MG PO (08:00)
[2021-10-20] MEDS: 0.9 % Sodium Chloride Flush 3 ML SYRINGE IVFLUSH (08:03)
--- NOTE | 2021-10-20 08:34 | PM.PNGS ---
Subjective Subjective Date of Service: 10/20/21 <Raine Winters PA-C - Last Filed: 10/20/21 08:41> 10/20/21 <Gurmeet Almonte MD - Last Filed: 10/20/21 08:58> Interval history: Feeling ok this morning, better overall. C/o right shoulder pain. Incisional pain is mild. Had some solid food yesterday but felt nauseous from anesthesia. <Raine Winters PA-C - Last Filed: 10/20/21 08:41> Physical Exam Vital Signs: Vital Signs: Last Vital Signs Temp 97.8 F 10/20/21 07:46 Pulse 82 10/20/21 07:46 Resp 18 10/20/21 07:46 BP 116/64 10/20/21 07:46 Pulse Ox 100 10/20/21 07:46 BMI result Body Mass Index 25.5 <Raine Winters PA-C - Last Filed: 10/20/21 08:41> Const: General: comfortable, no acute distress and alert <Raine Winters PA-C - Last Filed: 10/20/21 08:41> Orientation/consciousness: patient oriented x3 <Raine Winters PA-C - Last Filed: 10/20/21 08:41> Resp: Effort & Inspection: normal respiratory effort <AMBERLY Maya Last Filed: 10/20/21 08:41> GI: Inspection: No distended and Yes incision (dressings c/d/i) <Raine Winters PA-C - Last Filed: 10/20/21 08:41> Palpation (GI): Soft to palpation, Tenderness to palpation present (GI) (incisional, mild), no guarding and not rigid <AMBERLY Maya Last Filed: 10/20/21 08:41> Percussion: Yes normal to percussion <AMBERLY Maya Last Filed: 10/20/21 08:41> Skin: General skin exam: no rashes or lesions noted and no jaundice <AMBERLY Maya Last Filed: 10/20/21 08:41> Neuro: General: patient oriented x3 <Raine Winters PA-C - Last Filed: 10/20/21 08:41> Extrem: General: Yes no clubbing, cyanosis or edema <Raine Winters PA-C - Last Filed: 10/20/21 08:41> Objective Data Active Medications Acetaminophen (Acetaminophen 325 Mg Tablet) 650 mg PO Q6H PRN PRN Reason: Pain, Mild (Pain Scale 1-3) Last Admin: 10/20/21 08:00 Dose: 650 mg Documented by: MYLENE Fentanyl (Fentanyl Citrate/Pf 100 Mcg/2 Ml Vial) 25 mcg IVPUSH Q5M PRN; Protocol PRN Reason: Pain, Moderate (Pain Scale 4-6 Hydromorphone HCl (Hydromorphone Hcl 0.5 Mg/0.5 Ml Syringe) 0.25 mg IVPUSH Q5M PRN; Protocol PRN Reason: Pain, Severe (Pain Scale 7-10) Last Admin: 10/19/21 16:10 Dose: 0.25 mg Documented by: POLINA Piperacillin Sod/Tazobactam (Sod 3.375 gm/ Sodium Chloride) 50 mls @ 100 mls/hr IV Q6H MANOLO Last Infusion: 10/20/21 07:08 Dose: 0 mls/hr Documented by: MYLENE Promethazine HCl 12.5 mg/ (Sodium Chloride) 50.5 mls @ 202 mls/hr IV ONCE PRN PRN Reason: Nausea and Vomiting Morphine Sulfate (Morphine Sulfate 4 Mg/Ml Cartridge) 3 mg IVPUSH Q4H PRN; Protocol PRN Reason: Pain, Severe (Pain Scale 7-10) Ondansetron HCl (Ondansetron Hcl 4 Mg/2 Ml Vial) 4 mg IVPUSH Q8H PRN PRN Reason: Nausea and Vomiting Last Admin: 10/18/21 23:31 Dose: 4 mg Documented by: JESSICA Ondansetron HCl (Ondansetron Hcl 4 Mg/2 Ml Vial) 4 mg IVPUSH ONCE PRN PRN Reason: Nausea and Vomiting Oxycodone HCl (Oxycodone Hcl Immed Release 5 Mg Tablet) 5 mg PO Q4H PRN PRN Reason: Pain, Moderate (Pain Scale 4-6 Oxycodone HCl (Oxycodone Hcl Immed Release 5 Mg Tablet) 10 mg PO Q4H PRN PRN Reason: Pain, Severe (Pain Scale 7-10) Last Admin: 10/19/21 23:54 Dose: 10 mg Documented by: JESSICA Pharmacy Consult (Consult Rx Perform Med Rec) 1 each MISCELLANE ONCE PRN PRN Reason: Consult order Sodium Chloride (0.9 % Sodium Chloride Flush 3 Ml Syringe) 3 ml IVFLUSH QSHIFT MANOLO Last Admin: 10/20/21 08:03 Dose: 3 ml Documented by: MYLENE <Raine Winters PA-C - Last Filed: 10/20/21 08:41> Labs CBC & Chem 7: : 10/18/21 05:58 10/18/21 05:58 <Raine Winters PA-C - Last Filed: 10/20/21 08:41> Procedures Date of Service Date of Service: 10/20/21 <Raine Winters PA-C - Last Filed: 10/20/21 08:41> Progress Note: A&P Assessment and plan (1) Cholecystitis: Status: Acute <Raine Winters PA-C - Last Filed: 10/20/21 08:41> (2) Cholelithiasis: Status: Acute <Raine Winters PA-C - Last Filed: 10/20/21 08:41> Assessment and Plan: Status post laparoscopic cholecystectomy yesterday Doing well Abdomen soft Dressings dry On regular diet Okay to DC home today DC instructions explained to the patient Will see for follow-up in the office Gallbladder not acutely inflamed Seen and examined independently - agree with ROBBIE Winters <Gurmeet Almonte MD - Last Filed: 10/20/21 08:58> (3) Transaminitis: Status: Acute <Raine Winters PA-C - Last Filed: 10/20/21 08:41> Plan 26 year old female admitted with RUQ pain found to have elevated LFTs. Has had extensive work up without any real cause for pain, elevated LFTs but had persistent RUQ pain. Now POD #1 s/p lap CCY. Had omental adhesions to GB and GB was inflamed, consistent with chronic cholecystitis. She is doing well post op, c/o referred pain. VSS. Abd exam with appropriate post op tenderness, dressings intact. LFTs continue to downtrend. Encouraged OOB and ambulation for referred shoulder pain. Will reassess later today, if tolerating solid diet and pain well controlled, stable for d/c to home from surgical standpoint. F/u in office with Dr. Almonte in 2 weeks. Patient comfortable with plan. <Raine Winters PA-C - Last Filed: 10/20/21 08:41> Time Spent With Patient Time: Total time spent is greater than 50% in coordination of care (as documented) at patient's floor/unit and/or counseling patient: <Raine Winters PA-C - Last Filed: 10/20/21 08:41> Quality Stroke Does the patient have a stroke diagnosis?: No <Raine Winters PA-C - Last Filed: 10/20/21 08:41> VTE Prior VTE?: No <Raine Winters PA-C - Last Filed: 10/20/21 08:41> VTE Risk Level:: Medical - moderate - high <Raine Winters PA-C - Last Filed: 10/20/21 08:41> VTE Device Contraindication: N/A - Device Ordered <Raine Winters PA-C - Last Filed: 10/20/21 08:41> VTE Drug Contraindication: Treatment Not Indicated <Raine Winters PA-C - Last Filed: 10/20/21 08:41>
--- NOTE | 2021-10-20 09:22 | MHC.CM.PN ---
PATIENT IS DISCHARGED HOME TODAY- SELF CARE. FAMILY TO PROVIDE TRANSPORT HOME RN AWARE OF PLAN
--- NOTE | 2021-10-20 09:29 | P.DS_ITS ---
DS: Providers Provider Date of Service: 10/20/21 Date of admission: 10/14/21 23:49 Primary care physician: Nory Montanez MD Consults: 10/14/21 23:53 Consult to General Surgery Routine Consulting Provider: Angela Fernandez Reason for consultation: cholecystitis Has provider been notified: Yes 10/15/21 08:04 Consult to Gastroenterology Routine Consulting Provider: Yovani Nolen Reason for consultation: elevated liver functions ,acute cholecystitis Has provider been notified: No 10/17/21 09:19 Consult to Care Team Routine Comment: Reason for consultation: anxiety /depression DS: Diagnosis Discharge Diagnosis (1) Cholecystitis: Status: Resolved (2) Cholelithiasis: Status: Resolved (3) Transaminitis: Status: Acute DS: Summary Hospital Course Hospital Course: Chief Complaint: abd pain 26-year-old female with no significant past medical history presents to the hospital with complaints of epigastric and right upper quadrant abdominal pain.? Patient reports that she has had this intermittent pain after eating heavy fatty foods but usually resolves after she takes Pepto-Bismol.? Last night the pain started after she had dominoes.? Pain is epigastric, 9/10, radiating to the right upper quadrant, as well as right-sided back, she reports nausea with no vomiting and has been feeling very weak and nauseous all day today with low oral intake, therefore decided to come to the hospital.? Patient reports no chest pain no shortness of breath, no cough, no urinary symptoms and no lower ext remity edema. On arrival to the ED patient hemodynamically stable with no significant abnormal vitals Labs are significant for BC count of 3.7, total bilirubin of 3.2, AST of 976, ALT of 14 90, alk-phos of 150, UA is negative for any infection, lipase of 21, Salicylate of less than 0.5, an estimate of in less than 1, ?abdominal ultrasound shows gallbladder is packed with gallstones, others thick ening of gallbladder wall get rule out the possibility of cholecystitis Abdominal pelvic CT shows cholelithiasis with mild wall thickening similar findings were seen on ultrasound, no intrahepatic or CBD ductal dilatation, GI and general surgery consult patient will be admitted for further management Hospital course: She presented with abdominal pain, elevated LFTs with ultrasound finding of Gallbladder is packed with gallstones, there is thickening of gallbladder wall, cannot rule out the possibility of cholecystitis. Common bile duct however is normal 0.2 cm, there is also no pericholecystic fluid. CT of abdomen showed similar finding, MRCP showed no CBD stone. A HIDA scan was normal. She was treated with IV Zosyn for presumed acute cholecystitis. Her initial AST was 976 as of 10/14 and has come down to 61 as of 10/19, ALT was 1490 and has come down to 346 as of 10/19, Tbili peaked at 3.2 and has come down to 1.2 as of 10/19. Hep A, B, C negative, Dr. Nolen (GI) also ordered EBV still pending. She had Cholecystecomy on 10/[address] Almonte and is doing well and tolerating regular diet. She will follow up with Dr. Almonte, will repeat Liver panel next week, it is expected that LFTS will eventually normalized. Discharge plan discussed with her and she's comfortable with the plan Time Spent with Patient Time attestation: Total time spent providing and/or coordinating discharge services: Discharge coordination time: Greater than 30 minutes Quality: Safe Use of Opioids Does Pt have an Active Cancer Diagnosis on the Problem List?: No Quality: Stroke Does the patient have a stroke diagnosis?: No Physical Exam Vital Signs: Vital Signs: Last Vital Signs Temp 97.8 F 10/20/21 07:46 Pulse 82 10/20/21 07:46 Resp 18 10/20/21 07:46 BP 116/64 10/20/21 07:46 Pulse Ox 100 10/20/21 07:46 BMI result Body Mass Index 25.5 Const: Other: General: AO X 3, no acute distress Resp: CTA bilateral CVS: S1,S2,RRR GI: +BS, NT, no distention Skin: No rash Neuro: motor grossly intact Psych: appropriate affect DS: Data Data Completed and Pending Pending studies at discharge: Pending at discharge 10/19/21 15:09 Surgical [PTH] Routine Discharge Plan Discharge Anticipated Discharge Date/Time: 10/20/21 09:19 Patient Disposition: Home, Self-Care Discharge Diagnosis: Acute cholecystistis, Transaminitis Referrals: Gurmeet Almonte MD [Physician] - 2 Weeks Nory Sainz MD [Primary Care Provider] - 1 Week Discharge Medications: New oxycodone 5 mg tablet 5 mg PO Q6H MDD 20 mg PRN (Reason: pain (scale score 7-10)) Qty: 14 0RF No Action fluconazole [Diflucan] 150 mg tablet 150 mg PO Q3D Qty: 2 0RF Discharge Orders: Discharge Order (Routine); Ordered 10/20/21 Ordered By: Jenaro Frias Diet: low fat, low cholesterol Activity on Discharge: No heavy lifting Stand Alone Forms: Patient Portal Discharge page Activity Restrictions/Additional Instructions: If the incision area is tender, you may apply an ice pack for short intervals (No more than 20 minutes on, followed by at least 20 minutes off). Do not apply heat. Do not use creams, lotions, or topical antibiotics unless instructed to do so by your surgeon. These can cause infection or allergic reaction. Ok to shower 24 hours after your surgery. Remove bandaids in 2 days and replace. You have steri strips (small white cloth strips) covering your incision- these will fall off ~1 week. Follow up in office with Dr. Almonte in 2 weeks. ([phone]) No heavy lifting (>10-20lbs) or strenuous activity! Call Your Doctor If: -Your temperature exceeds 101.5? F -You experience excessive pain or swelling -You have an unexpected reaction to medication -You have excessive bleeding -You experience continued vomiting/nausea -Your incision begins to separate -Your incision shows signs of infection such as increased redness, swelling, excessive pain, drainage (light blood or clear fluid is normal) or heat Care Plan Goals: Full recovery from gallstones Health Concerns: Gallstones and elevated liver enzymes Plan of Treatment: See above, repeat liver labs in a week, avoid Tyelenol and check with your Doctor before taking any medications Assessment: as above Discharge Date/Time: 10/20/21 11:16
[2021-10-20 09:44] LABS: Alanine Aminotransferase 329 U/L (0-31); Albumin Level 4.2 g/dL (3.5-5.0); Alkaline Phosphatase 179 U/L (39-117); Aspartate Amino Transferase 68 U/L (5-31); Bilirubin Direct 0.7 mg/dL (0.0-0.5); Bilirubin Total 1.3 mg/dL (0.0-1.0); Total Protein 6.8 g/dL (6.5-8.0)
[2021-10-22 13:45] LABS: EBV DNA PCR Not Detected (Not Detected); EBV Source Whole Blood
== END 2021-10-20 11:16 | disposition home or self-care (01) | DRG 263 ==
LOC: HO.ED 23:39 → HO.EDOVER 10-15 00:03 → HO.S3 10-15 03:42
PROVIDERS: Internal Medicine; Internal Medicine Gastroenterology; Physician Assistant; Physician Assistant Surgical; Surgery; Admitting Provider Internal Medicine; Emergency Provider Internal Medicine; PCP Internal Medicine; Visit Provider Internal Medicine
PROC: 0FT44ZZ Resection of Gallbladder, Percutaneous Endoscopic Approach (ICD-10-PCS; CPT 47562; principal; 2021-10-19 14:00)
DX: K80.10 Calculus of gallbladder with chronic cholecystitis without obstruction (principal); F32.9 Major depressive disorder, single episode, unspecified; K82.8 Other specified diseases of gallbladder; K21.9 Gastro-esophageal reflux disease without esophagitis; Z20.822 Contact with and (suspected) exposure to COVID-19; Z90.49 Acquired absence of other specified parts of digestive tract; Z87.891 Personal history of nicotine dependence; Z88.1 Allergy status to other antibiotic agents; Z88.2 Allergy status to sulfonamides; Z91.013 Allergy to seafood; Z79.899 Other long term (current) drug therapy; F41.9 Anxiety disorder, unspecified
CPT/HCPCS: 36415; 74177; 74181; 76700; 76705; 78226; 80048; 80053; 80076; 80143; 80179; 81001; 81025; 83690; 85025; 85027; 85610; 86308; 86664; 86665; 86704; 86706; 86709; 86803; 87340; 87502; 87635; 87798; 88304; 93975; 96361; 96365; 96375; 99285; A9537; J1100; J1170; J2250; J2270; J2405; J2543; J2550; J2795; J3010; Q9967

== ENCOUNTER 2021-10-25 10:37 | Outpatient (REF) | payer OTHER, MEDICAID, SELFPAY ==
[2021-10-25 12:25] LABS: Alanine Aminotransferase 159 U/L (0-31); Albumin Level 4.3 g/dL (3.5-5.0); Alkaline Phosphatase 132 U/L (39-117); Aspartate Amino Transferase 32 U/L (5-31); Bilirubin Direct 0.4 mg/dL (0.0-0.5); Bilirubin Total 0.9 mg/dL (0.0-1.0); Total Protein 7.2 g/dL (6.5-8.0)
== END 2021-10-25 10:38 | disposition home or self-care (01) ==
LOC: HO.LAB 10:37
PROVIDERS: Absent Provider Internal Medicine; PCP Internal Medicine; Visit Provider Internal Medicine
DX: R74.01 Elevation of levels of liver transaminase levels (principal)
CPT/HCPCS: 36415; 80076

== ENCOUNTER → 2021-11-03 08:55 | Outpatient (BNVA) | payer OTHER, MEDICAID, SELFPAY | PROVIDERS: PCP Internal Medicine; Referring Provider Internal Medicine; Visit Provider Surgery | DX: Z13.89 Encounter for screening for other disorder (principal) ==

== ENCOUNTER 2021-11-18 11:05 | Outpatient (REF) | payer OTHER, MEDICAID, SELFPAY ==
[2021-11-18 12:24] LABS: ~Hepatitis B Surface Antibody NONREACTIVE (Nonreactive)
[2021-11-22 05:52] LABS: TS Negative Control Passed; TS Panel A 0; TS Panel B 0; TS Positive Control Passed; TSpotTB Negative (Negative)
== END 2021-11-18 11:06 | disposition home or self-care (01) ==
LOC: HO.LAB 11:05
PROVIDERS: PCP Internal Medicine; Visit Provider Physician Assistant
DX: Z11.1 Encounter for screening for respiratory tuberculosis (principal); Z11.59 Encounter for screening for other viral diseases
CPT/HCPCS: 36415; 86481; 86706

== ENCOUNTER 2022-02-06 12:12 | Outpatient (REF) | payer OTHER, MEDICAID, SELFPAY ==
[2022-02-06 13:09] LABS: Alanine Aminotransferase 10 U/L (0-31); Albumin Level 4.4 g/dL (3.5-5.0); Alkaline Phosphatase 69 U/L (39-117); Aspartate Amino Transferase 13 U/L (5-31); Bilirubin Direct 0.3 mg/dL (0.0-0.5); Bilirubin Total 0.8 mg/dL (0.0-1.0); Total Protein 6.9 g/dL (6.5-8.0)
== END 2022-02-06 12:13 | disposition home or self-care (01) ==
LOC: HO.LAB 12:12
PROVIDERS: PCP Internal Medicine; Visit Provider Nurse Practitioner Family
DX: R74.8 Abnormal levels of other serum enzymes (principal)
CPT/HCPCS: 36415; 80076

== ENCOUNTER 2022-03-21 15:33 | Outpatient (REF) | payer OTHER, MEDICAID, SELFPAY ==
[2022-03-21 17:51] LABS: Appearance Urine Turbid; Color Urine Yellow; Glucose Urine UA Negative (Negative); Leukocyte Esterase Urine Small (1+) (Negative); Nitrite Urine Negative (Negative); PH 7.5 (5.0-9.0); Specific Gravity - Urine 1.015 (1.005-1.025); UMIC TRIGGER UACC YES; Urine Blood Negative (Negative); Urine Ketones Negative (Negative); Urine Protein Negative (Neg-Trace)
[2022-03-21 17:57] LABS: Bacteria Urine 3+ (None Seen); Hyaline Casts Urine 0-2 /LPF (0-2); RBC Urine 0-2 /HPF (0-2); Squamous Epithelial Cell Urine 0-2 /HPF (0-2); UACC Culture Trigger YES; WBC Urine 21-50 /HPF (0-5)
== END 2022-03-21 15:34 | disposition home or self-care (01) ==
LOC: HO.LAB 15:33
PROVIDERS: PCP Internal Medicine; Visit Provider Internal Medicine
DX: R30.0 Dysuria (principal)
CPT/HCPCS: 81001; 87086; 87088; 87186

== ENCOUNTER 2022-10-02 13:52 | Outpatient (REF) | payer OTHER, MEDICAID, SELFPAY ==
[2022-10-04 05:10] LABS: HBS Num1 70.37 mIU/mL (0-7.99); HBc Num1 0.05 S/CO (0.00-0.79); HBsAGNum1 0.28 S/CO (0.00-0.99); Hepatitis A Antibody IgM 0.16 Index (0-0.79); Hepatitis B Core Antibody Nonreactive (Nonreactive); Hepatitis B Surface Antigen Negative (Negative); ~HepC Num1 0.29 S/CO (0.00-0.79); ~Hepatitis A Antibody IgM Nonreactive (Nonreactive); ~Hepatitis B Surface Antibody REACTIVE (Nonreactive); ~Hepatitis C Antibody Nonreactive (Nonreactive)
== END 2022-10-02 13:53 | disposition home or self-care (01) ==
LOC: HO.LAB 13:52
PROVIDERS: PCP Internal Medicine; Visit Provider Internal Medicine
DX: Z01.84 Encounter for antibody response examination (principal)
CPT/HCPCS: 36415; 86704; 86706; 86709; 86803; 87340

== ENCOUNTER 2022-12-20 11:14 | Outpatient (REF) | payer OTHER, MEDICAID, SELFPAY ==
[2022-12-20 12:03] LABS: Appearance Urine Clear; Color Urine Yellow; Glucose Urine UA Negative (Negative); Leukocyte Esterase Urine Negative (Negative); Nitrite Urine Negative (Negative); PH 7.5 (5.0-9.0); UMIC TRIGGER UACC YES; Urine Blood Large (3+) (Negative); Urine Ketones Negative (Negative); Urine Protein Negative (Neg-Trace)
[2022-12-20 12:14] LABS: Bacteria Urine None Seen (None Seen); Hyaline Casts Urine 0-2 /LPF (0-2); WBC Urine 0-5 /HPF (0-5)
[2022-12-22 17:43] LABS: TS Negative Control Passed; TS Panel A 0; TS Panel B 0; TS Positive Control Passed; TSpotTB Negative (Negative)
== END 2022-12-20 11:15 | disposition home or self-care (01) ==
LOC: HO.LAB 11:14
PROVIDERS: PCP Internal Medicine; Visit Provider Internal Medicine
DX: Z11.1 Encounter for screening for respiratory tuberculosis (principal)
CPT/HCPCS: 36415; 81001; 81003; 86481

== ENCOUNTER 2023-09-05 12:48 | Outpatient (REF) | payer MEDICAID, SELFPAY ==
[2023-09-05 14:12] LABS: Appearance Urine Clear; Color Urine Yellow; Glucose Urine UA Negative (Negative); Leukocyte Esterase Urine Moderate (2+) (Negative); Nitrite Urine Negative (Negative); PH 6.5 (5.0-9.0); UMIC TRIGGER UACC YES; Urine Blood Small (1+) (Negative); Urine Ketones Negative (Negative); Urine Protein Negative (Neg-Trace)
[2023-09-05 14:22] LABS: Bacteria Urine None Seen (None Seen); Hyaline Casts Urine 0-2 /LPF (0-2); Squamous Epithelial Cell Urine 0-2 /HPF (0-2); UACC Culture Trigger YES
== END 2023-09-05 12:49 | disposition home or self-care (01) ==
LOC: HO.LAB 12:48
PROVIDERS: PCP Internal Medicine; Visit Provider Internal Medicine
DX: R30.0 Dysuria (principal)
CPT/HCPCS: 81001; 87086

== ENCOUNTER 2023-10-09 16:28 | Emergency (ER) | payer MEDICAID, SELFPAY ==
--- NOTE | ~2023-10-09 | US_ITS ---
EXAMINATION: US , LESS THAN 14 WEEKS CLINICAL INFORMATION: Vaginal bleeding. HCG 195 LMP 08/23/23. COMPARISON: None. TECHNIQUE: Transcutaneous early obstetrical ultrasound. The patient was asked to void completely and reexamined vaginally to better characterize the uterine contents and adnexa FINDINGS: There is no intrauterine gestation demonstrated. No cardiac activity or somatic activity was demonstrated. No yolk sac demonstrated. There is no suspicious abnormality in the region of the vagina. The cervix measures approximately 2.9 cm. Uterus is retroverted and possibly retroflexed. The uterine contour is smooth. The uterus measures approximately 7.8 x 5.0 x 4.3 cm. There is some decidual reaction. No focal abnormality of the myometrium. The endometrium measures 1.4 cm. Placenta findings: No discrete placental demonstrated. No large adnexal mass. The right ovary measures approximately 3.0 x 2.3 x 1.6 cm. No suspicious adnexal mass or collection. The left ovary measures approximately 2.3 x 2.8 x 1.9 cm. No suspicious left adnexal mass or collection. A cyst in the left ovary may represent a corpus luteum There is heterogeneous altered echotexture in the expected endometrium. There are some small anechoic spaces. There is no discrete gestational sac, pole or yolk sac. Measurements include: No gestational sac demonstrated No yolk sac demonstrated No pole demonstrated The estimated gestational age based upon the LMP is 6 weeks 5 days. No cardiac activity demonstrated. survey: No survey possible There is no significant free pelvic fluid. US/US OB pelvic and transvaginal IMPRESSION: There is no intrauterine demonstrated. Thickened heterogeneous endometrium is nonspecific. No specific imaging evidence of an ectopic . The patient should be managed on the basis of the history, clinical exam, and laboratory values. Consider serial quantitative beta-hCG and perhaps a follow-up ultrasound
--- NOTE | 2023-10-09 16:34 | ED.GENADULT ---
HPI - General Adult General Stated complaint: 7wks /bleeding Related Data Previous Rx's ?Medication ?Instructions ?Recorded nitrofurantoin macrocrystal 100 mg 100 mg PO BID 7 days #14 caps 07/11/22 capsule Allergies Allergy/AdvReac Type Severity Reaction Status Date / Time ciprofloxacin [From CIPRO] Allergy Intermediate TACHYCARDIA Verified 01/10/22 10:28 Sulfa (Sulfonamide Allergy Intermediate shortness Verified 01/10/22 10:28 Antibiotics) of breath sulfamethoxazole Allergy Unknown Verified 01/10/22 10:28 [From Bactrim] trimethoprim [From Bactrim] Allergy Unknown Verified 01/10/22 10:28 fish/shellfish Allergy Severe anaphylaxis Uncoded 01/10/22 10:28 SEAFOOD Allergy Severe ANAPHALXYS Uncoded 01/10/22 10:28 PMFSH Past Medical History Medical History GERD (gastroesophageal reflux disease) Meniere's disease of right ear Mild major depression, single episode Tachycardia Surgical History History of appendectomy History of cholecystectomy Previous section Family History Family History Mother Arthritis Father No problems noted. Social History Social History Household Members: Unknown / Unable to assess Housing: Apartment Do you presently have visiting nurse or other home services: No Unable to assess alcohol history related to: Unknown Alcohol intake: current Alcohol intake frequency: holidays/special occasions only Patient Tobacco Use Status: Former Tobacco user Tobacco use type: Cigarette e-Cigarette/Vaping Use: Never Used Second Hand Smoke Exposure: No service: No Current occupational status: employed Current occupational exposures/hazards: No Cognitive needs: No Hearing needs: No Vision needs: No Course Course Course Narrative: RME- 28 year old female presents for evaluation of vaginal bleeding. She reports that she is approximately 7 weeks . She is . She follow with Dr Dangelo at [facility]. She reports minor spotting this morning and getting heavier throughout the day. Plan for labs, UA, type and screen, as well as ultrasound Discharge Plan Discharge Prescriptions: No Action nitrofurantoin macrocrystal 100 mg capsule 100 mg PO BID 7 Days Qty: 14 0RF Rx Instructions: must administer with a meal/food Print Language: Syriac
[2023-10-09 16:36] VITALS: BP 117/84; PULSE 80; RESP 16; TEMP 36.9; O2SAT 100; BMI 27.8
[2023-10-09 17:00] LABS: MANUAL DIFF FLAG NO
[2023-10-09 17:03] LABS: Appearance Urine Clear; Color Urine Yellow; Glucose Urine UA Negative (Negative); Leukocyte Esterase Urine Negative (Negative); Nitrite Urine Negative (Negative); Specific Gravity - Urine 1.015 (1.005-1.025); UMIC TRIGGER UACC YES; Urine Blood Large (3+) (Negative); Urine Ketones Negative (Negative); Urine Protein Negative (Neg-Trace)
[2023-10-09 17:05] LABS: Bacteria Urine None Seen (None Seen); Hyaline Casts Urine 0-2 /LPF (0-2); Squamous Epithelial Cell Urine 0-2 /HPF (0-2); WBC Urine 0-5 /HPF (0-5)
[2023-10-09 17:07] LABS: Basophils Percent Auto 0.6 % (0-2); Eosinophils Absolute Auto 0.1 X10*3/uL (0.0-0.4); Eosinophils Percent Auto 1.1 % (0-4); Hematocrit 37.9 % (37.0-47.0); Hemoglobin 12.4 g/dl (12.0-16.0); Imm Gran Abs Auto 0.02 X10*3/uL (0.00-0.03); Imm Gran Pct Auto 0.3 % (0.0-0.4); Lymphocytes Percent Auto 30.1 % (20-40); Mean Corpuscular HGB Conc 32.7 g/dl (31.0-35.0); Mean Corpuscular Volume 91.5 fL (80.0-98.0); Mean Platelet Volume 10.3 fL (9.4-12.3); Monocytes Absolute Auto 0.4 X10*3/uL (0.1-1.2); Monocytes Percent Auto 6.6 % (2-11); Neutrophils Percent Auto 61.3 % (45-73); Platelet Count 262 X10*3/uL (160-400); Red Blood Count 4.14 X10*6/uL (4.20-5.50); Red Cell Distribution Width 13.8 % (11.0-16.0); White Blood Count 6.5 X10*3/uL (4.8-10.8)
[2023-10-09 17:25] LABS: Alanine Aminotransferase 12 U/L (0-31); Albumin Level 4.4 g/dL (3.5-5.0); Alkaline Phosphatase 78 U/L (39-117); Anion Gap 13 (12-20); Aspartate Amino Transferase 16 U/L (5-31); Bilirubin Total 0.3 mg/dL (0.0-1.0); Blood Urea Nitrogen 13 mg/dL (9-16); Calcium 9.1 mg/dL (8.4-10.2); Carbon Dioxide 24 mmol/L (22-29); Chloride 107 mmol/L (96-108); Creatinine Clr Calc Pharmacy 112.2; Estimated Glomerular Filt Rate > 60; Glucose Random 106 mg/dL (60-115); HCG Quantitative 195 mIU/mL; Lipase 35 U/L (8-78); Potassium 4.5 mmol/L (3.3-5.1); Sodium 139 mmol/L (135-145)
== END 2023-10-09 23:34 | disposition left against medical advice (07) ==
PROVIDERS: Physician Assistant; Emergency Provider Emergency Medicine; PCP Internal Medicine
DX: O20.9 Hemorrhage in early pregnancy, unspecified (principal); Z3A.01 Less than 8 weeks gestation of pregnancy
CPT/HCPCS: 36415; 76801; 76817; 80053; 81001; 83690; 84702; 85025; 86900; 86901; 99282; 99284

== ENCOUNTER 2023-12-18 12:22 | Emergency (ER) | payer OTHER, SELFPAY ==
[2023-12-18 12:24] VITALS: BP 115/76; PULSE 90; RESP 20; TEMP 37.1; O2SAT 100; BMI 27.1
--- NOTE | 2023-12-18 12:25 | ED.GENADULT ---
HPI - General Adult General Chief complaint: Nausea/Vomiting/Diarrhea Stated complaint: Vomiting, nausea - 9 weeks Time Seen by Provider: 12/18/23 14:50 Source: patient, RN notes reviewed and old records reviewed Mode of arrival: ambulatory Limitations: no limitations History of Present Illness ED Provider: CARMENZA BUSTILLOS PA-C HPI narrative: 28-year-old female , currently 9 weeks , presents to the emergency department for evaluation of intermittent nausea x9 weeks, becoming more frequent yesterday. Reports 6 episodes of vomiting yesterday and 2 today. Also reports 1 episode of diarrhea today. Denies known sick contacts. No other family members are ill with similar symptoms. No recent travel. Reports having follow-up ultrasound 2 weeks ago confirming IUP. She tells me that she was given a medication for her vomiting however upon looking this up, saw that it was also used for schizophrenic patient is and did not want to use this medication. She does not recall the name of the medication. As a result, she has not been taking anything for nausea or vomiting at home. Denies fever, chills, sore throat, abdominal pain/cramping, flank pain, dysuria, hematuria, vaginal bleeding or discharge. Related Data Previous Rx's ?Medication ?Instructions ?Recorded nitrofurantoin macrocrystal 100 mg 100 mg PO BID 7 days #14 caps 07/11/22 capsule pyridoxine (vitamin B6) 25 mg 25 mg PO TID PRN nausea and 12/18/23 tablet vomiting #30 tabs Allergies Allergy/AdvReac Type Severity Reaction Status Date / Time ciprofloxacin [From CIPRO] Allergy Intermediate TACHYCARDIA Verified 12/18/23 12:27 Sulfa (Sulfonamide Allergy Intermediate shortness Verified 12/18/23 12:27 Antibiotics) of breath sulfamethoxazole Allergy Unknown Verified 12/18/23 12:27 [From Bactrim] trimethoprim [From Bactrim] Allergy Unknown Verified 12/18/23 12:27 fish/shellfish Allergy Severe anaphylaxis Uncoded 01/10/22 10:28 SEAFOOD Allergy Severe ANAPHALXYS Uncoded 01/10/22 10:28 Review of Systems Review of Systems: Constitutional: No fever, chills, fatigue, night sweats, weight changes ENT/Mouth: No ear pain, hearing loss, nasal congestion, sinus pain, rhinorrhea, sore throat Eyes: No eye pain, swelling, redness, vision changes, discharge Cardio: No chest pain, palpitations, PATEL, orthopnea, peripheral edema Pulm: No SOB, cough, sputum, wheezing, dyspnea, hemoptysis GI: Nohematemesis, abdominal pain, constipation, hematochezia, melena, +nausea, +vomiting, +diarrhea : No irregular bleeding, dysuria, frequency, urgency, hesitancy, hematuria, flank pain, urinary flow changes, urinary incontinence or retention MSK: No back pain, neck pain, joint pain, myalgias Skin: No lesions, rashes Neuro: No weakness, numbness, paresthesias, LOC, dizziness, headache Psych: No anxiety/panic, depression, SI/HI, AH/VH All other systems reviewed and are negative. [facility] Past Medical History Attestation statement: The following information was validated with the patient. Source: old records reviewed and nursing notes reviewed Medical History Meniere's disease of right ear Mild major depression, single episode GERD (gastroesophageal reflux disease) Tachycardia Surgical History History of cholecystectomy Previous section History of appendectomy Family History Family History Mother Arthritis Father No problems noted. Social History Social History Household Members: Unknown / Unable to assess Housing: Apartment Do you presently have visiting nurse or other home services: No Unable to assess alcohol history related to: Unknown Alcohol intake: current Alcohol intake frequency: holidays/special occasions only Patient Tobacco Use Status: Former Tobacco user Tobacco use type: Cigarette e-Cigarette/Vaping Use: Never Used Second Hand Smoke Exposure: No Advance Directives: No Do you have a plan to hurt others: No Plan service: No Current occupational status: employed Current occupational exposures/hazards: No Cognitive needs: No Hearing needs: No Vision needs: No Physical Exam ED Vital Signs: Vital Signs - 24 hr 12/18/23 12:24 Temperature 98.7 F Pulse Rate 90 Respiratory Rate 20 Blood Pressure 115/76 Pulse Oximetry 100 Oxygen Delivery Method Room Air BMI result Body Mass Index 27.1 Vital signs stable, afebrile Const General: cooperative, healthy appearing, comfortable and no acute distress Orientation/consciousness: patient oriented x3 Limitations: no limitations HENMT Head: Yes normal to inspection, Yes No palpable skull fracture present, Yes normocephalic and Yes atraumatic Mouth: Normal oral and palatal mucosa present Throat: Yes posterior oropharynx normal Eyes General: appearance normal, both eyes and all related structures Neck Neck: Yes normal visual inspection, Yes full ROM, Yes no lymphadenopathy and Yes no meningeal signs Resp Effort & Inspection: normal respiratory effort and able to speak in complete sentences Auscultation: clear to auscultation bilaterally Cardio Rate: regular rate Rhythm: regular rhythm GI Other: Abdomen soft, nondistended, nontender to palpation, no rebound tenderness or guarding, no palpable masses. Normoactive bowel sounds x4. General: Yes no CVA tenderness Back/Spine/Pelvis Back: no CVA tenderness Skin General skin exam: no rashes or lesions noted Neuro General: patient oriented x3 and no meningeal signs Extrem General: Yes normal to inspection Course Course Course Narrative: This is a rapid medical exam performed by Romero Leija NP: Additional HPI, ROS, PE not included below will be deferred to primary provider. Patient is a 28-year-old female 9-week female presenting to the emergency department with complaint of nausea and vomiting. Six episodes of vomiting yesterday, two today but also had diarrhea today. Denies any other family members with similar symptoms. Has had U/S 2 weeks ago confirming IUP. States LMP was a miscarriage which is why she had ultrasound. Denies any current vaginal bleeding. Plan: labs Reevaluation(s) Reevaluation #1: 1541-- CBC without leukocytosis or left shift. No anemia. H&H stable. Chemistry without acute electrolyte abnormality requiring intervention. Normal renal function. No JODI. Beta HCG [id number] > correlating with 7-12 weeks , consistent with current . 1845-- Urine without infection. She has tested negative for covid/ flu/ and rsv. Patient has received vit b12 for nausea and a liter of IVF with improvement in symptoms. denies further episodes of vomiting. No concerns for threatened at this time. no vaginal bleeding or abdominal cramping. pelvic US/ pelvic exam not warranted at this time. she is tolerating juice and crackers in ED. at this time i feel patient is stable for discharge with close OB follow up. Patient has remained stable throughout ED visit today. Discussed worrisome signs and symptoms and when to return to the ED. All questions answered at this time. Patient is agreeable with disposition and stable for discharge. Medications Administered Discontinued Medications Generic Name Dose Route Start Last Admin Trade Name Michaelq PRN Reason Stop Dose Admin Diphenhydramine HCl 50 mg 12/18/23 15:29 12/18/23 16:09 Diphenhydramine Hcl 25 Mg Capsule PO 12/18/23 15:30 50 mg ONCE ONE Administration Sodium Chloride 1,000 mls @ 999 mls/hr 12/18/23 15:30 12/18/23 16:59 Ns IV 12/18/23 16:30 Infused .Q1H1M MANOLO Infusion Pyridoxine HCl 25 mg 12/18/23 15:29 12/18/23 16:08 Pyridoxine Hcl (Vitamin B6) 50 Mg Tablet PO 12/18/23 15:30 25 mg ONCE ONE Administration Medical Decision Making Medical Decision Making [facility] Narrative: 28-year-old female , currently 9 weeks , presents to the emergency department for evaluation of intermittent nausea x9 weeks, becoming more frequent yesterday. VSS. Afebrile. She is nontoxic appearing and in NAD. On exam, abd is soft, ND/NT, no rebound or guarding. no cvat b/l. skin warm/dry/intact. no lesions or pallor. Differential diagnosis includes IUP, UTI, STD, gastroenteritis, gastritis. unlikely ovarian torsion, threatened , ectopic. Plan for labs, US, IVF, anti-emetic, re-evaluaiton. Differential Diagnosis Differential Diagnoses: The differential diagnosis associated with the presentation includes as above. Admission/Observation Not indicated Lab Data [facility] Lab Attestation statement: I reviewed the patient's lab results. As above 12/18/23 12:37 12/18/23 12:37 Labs: Lab Results 12/18/23 12/18/23 Range/Units 12:37 15:39 WBC 6.0 (4.8-10.8) X10*3/uL RBC 4.58 (4.20-5.50) X10*6/uL Hgb 13.8 (12.0-16.0) g/dl Hct 39.8 (37.0-47.0) % MCV 86.9 (80.0-98.0) fL MCH 30.1 (27.0-33.0) pg MCHC 34.7 (31.0-35.0) g/dl RDW 13.2 (11.0-16.0) % Plt Count 259 (160-400) X10*3/uL MPV 9.6 (9.4-12.3) fL Immature Gran % (Auto) 0.5 H (0.0-0.4) % Neut % (Auto) 57.2 (45-73) % Lymph % (Auto) 33.7 (20-40) % Sully % (Auto) 7.6 (2-11) % Eos % (Auto) 0.5 (0-4) % Baso % (Auto) 0.5 (0-2) % Lymph # (Auto) 2.0 (1.2-4.9) X10*3/uL Sully # (Auto) 0.5 (0.1-1.2) X10*3/uL Eos # (Auto) 0.0 (0.0-0.4) X10*3/uL Baso # (Auto) 0.0 (0.0-0.2) X10*3/uL Abs Immat Gran (auto) 0.03 (0.00-0.03) X10*3/uL Absolute Neuts (auto) 3.4 (2.0-8.3) x10*3/uL Absolute Nucleated RBC 0.000 (0.0-0.012) X10*3/uL Nucleated RBC % (auto) 0.0 (0.0-0.2) /100WBC Sodium 139 (135-145) mmol/L Potassium 4.0 (3.3-5.1) mmol/L Chloride 106 (96-108) mmol/L Carbon Dioxide 23 (22-29) mmol/L Anion Gap 14 (12-20) BUN 9 (9-16) mg/dL Creatinine 0.70 (0.5-1.4) mg/dL Estim Creat Clear Calc 131.3 Estimated GFR > 60 Random Glucose 83 (60-115) mg/dL Calcium 10.0 D (8.4-10.2) mg/dL Magnesium 1.9 (1.6-2.6) mg/dL Total Bilirubin 0.8 (0.0-1.0) mg/dL AST 15 (5-31) U/L ALT 32 H (0-31) U/L Alkaline Phosphatase 67 (39-117) U/L Total Protein 7.6 (6.5-8.0) g/dL Albumin 4.8 (3.5-5.0) g/dL Beta HCG, Quant [id number] mIU/mL Urine Color Dark Yellow Urine Appearance Cloudy Urine pH 5.5 (5.0-9.0) Ur Specific [place] >= 1.030 H (1.005-1.025) Urine Protein 30 (1+) H (Neg-Trace) mg/dL Urine Glucose (UA) Negative (Negative) mg/dL Urine Ketones 40 (Negative) mg/dL Urine Blood Negative (Negative) Urine Nitrite Negative (Negative) Ur Leukocyte Esterase Trace H (Negative) Urine RBC 0-2 (0-2) /HPF Urine WBC 0-5 (0-5) /HPF Ur Squamous Epith Cells 3-5 (0-2) /HPF Calcium Oxalate Crystal Present Urine Bacteria Trace (None Seen) Hyaline Casts 0-2 (0-2) /LPF Urine Test POSITIVE H (NEGATIVE) Influenza Type A (PCR) NEGATIVE (Negative) Influenza Type B (PCR) NEGATIVE (Negative) RSV RNA Qual (PCR) NEGATIVE (Negative) SARS-CoV-2 RNA (RT-PCR) NEGATIVE (Negative) External Record Review External record reviewed: Inpatient record, Office record, Outpatient record, Prior outpatient labs, Prior outpatient radiology, Primary care record and Outside ED record Prescription Management I considered prescription management with: Other (Vitamin B6) Chronic Conditions Patient?s care impacted by: Other () Social Determinants Patient?s care significantly limited by Social Determinants of Health including: Other Social Determinant of Health Critical Care Time Critical Care Time Critical Care Time: No Discharge Plan Discharge Clinical Impression: Nausea and vomiting during Patient Disposition: Home, Self-Care Instructions: Nausea and Vomiting in (ED), Acute Nausea and Vomiting (ED) Additional Instructions: Your blood work today is reassuring. Your hormone (beta HCG) measres 213,396 consistent with 9 weeks . Your urine is negative for infection. You tested negative for covid, flu, and rsv. You were treated with IV fluids and vitamin B6 today with improvement. Your work up is consistent with nausea and vomiting associated with pregnany. Vitamin B6 has been sent to your pharmacy to help with nausea. You may take this 3-4 times daily. Please follow-up with bee producer as scheduled. Follow up with PCP as needed. As discussed, return with new or worsening symptoms including inability to tolerate food/drink. In the case of an emergency call 911. Prescriptions: New pyridoxine (vitamin B6) 25 mg tablet 25 mg PO TID PRN (Reason: nausea and vomiting) Qty: 30 0RF No Action nitrofurantoin macrocrystal 100 mg capsule 100 mg PO BID 7 Days Qty: 14 0RF Rx Instructions: must administer with a meal/food Referrals: Nory Sainz MD [Primary Care Provider] - Interventions: ED Discharge Assessment Last Done: 12/18/23 18:55 Discharge Date/Time: 12/18/23 18:56 Print Language: Syriac
[2023-12-18 12:42] LABS: MANUAL DIFF FLAG NO
[2023-12-18 12:43] LABS: Basophils Percent Auto 0.5 % (0-2); Eosinophils Percent Auto 0.5 % (0-4); Hematocrit 39.8 % (37.0-47.0); Hemoglobin 13.8 g/dl (12.0-16.0); Imm Gran Abs Auto 0.03 X10*3/uL (0.00-0.03); Imm Gran Pct Auto 0.5 % (0.0-0.4); Lymphocytes Percent Auto 33.7 % (20-40); Mean Corpuscular HGB Conc 34.7 g/dl (31.0-35.0); Mean Corpuscular Hemoglobin 30.1 pg (27.0-33.0); Mean Corpuscular Volume 86.9 fL (80.0-98.0); Mean Platelet Volume 9.6 fL (9.4-12.3); Monocytes Absolute Auto 0.5 X10*3/uL (0.1-1.2); Monocytes Percent Auto 7.6 % (2-11); Neutrophils Absolute Auto 3.4 x10*3/uL (2.0-8.3); Neutrophils Percent Auto 57.2 % (45-73); Platelet Count 259 X10*3/uL (160-400); Red Blood Count 4.58 X10*6/uL (4.20-5.50); Red Cell Distribution Width 13.2 % (11.0-16.0)
[2023-12-18 12:47] LABS: Appearance Urine Cloudy; Color Urine Dark Yellow; Glucose Urine UA Negative (Negative); Leukocyte Esterase Urine Trace (Negative); Nitrite Urine Negative (Negative); PH 5.5 (5.0-9.0); Specific Gravity - Urine >= 1.030 (1.005-1.025); UMIC TRIGGER UACC YES; Urine Blood Negative (Negative); Urine Ketones 40 mg/dL (Negative); Urine Protein 30 (1+) mg/dL (Neg-Trace)
[2023-12-18 13:00] LABS: Bacteria Urine Trace (None Seen); Calcium Oxalate Crystals Urine Present; Hyaline Casts Urine 0-2 /LPF (0-2); RBC Urine 0-2 /HPF (0-2); WBC Urine 0-5 /HPF (0-5)
[2023-12-18 13:01] LABS: Alanine Aminotransferase 32 U/L (0-31); Albumin Level 4.8 g/dL (3.5-5.0); Alkaline Phosphatase 67 U/L (39-117); Anion Gap 14 (12-20); Aspartate Amino Transferase 15 U/L (5-31); Bilirubin Total 0.8 mg/dL (0.0-1.0); Blood Urea Nitrogen 9 mg/dL (9-16); Carbon Dioxide 23 mmol/L (22-29); Chloride 106 mmol/L (96-108); Creatinine Clr Calc Pharmacy 131.3; Estimated Glomerular Filt Rate > 60; Glucose Random 83 mg/dL (60-115); Magnesium 1.9 mg/dL (1.6-2.6); Sodium 139 mmol/L (135-145); Total Protein 7.6 g/dL (6.5-8.0)
[2023-12-18 14:53] LABS: UPreg QC Valid YES; Urine Pregnancy POSITIVE (NEGATIVE)
[2023-12-18] MEDS: 0.9 % Sodium Chloride 1,000 ML 999 ML IV (15:35)
[2023-12-18] MEDS: Pyridoxine HCl (Vitamin B6) 50 MG TABLET 25 MG PO (16:08)
[2023-12-18] MEDS: diphenhydrAMINE HCL 25 MG CAPSULE 50 MG PO (16:09)
[2023-12-18 16:37] LABS: Influenza A PCR NEGATIVE (Negative); Influenza B PCR NEGATIVE (Negative); Resp Syncy Virus RNA Qual PCR NEGATIVE (Negative); SARS COV2 PCR INHOUSE NEGATIVE (Negative)
[2023-12-18 18:55] VITALS: BP 115/76; PULSE 90; RESP 20; TEMP 37.1; O2SAT 100
== END 2023-12-18 18:56 | disposition home or self-care (01) ==
PROVIDERS: Physician Assistant Medical; Registered Nurse Emergency; Emergency Provider Emergency Medicine; PCP Internal Medicine
DX: O26.91 Pregnancy related conditions, unspecified, first trimester (principal); R11.2 Nausea with vomiting, unspecified; Z3A.09 9 weeks gestation of pregnancy; Z03.818 Encounter for observation for suspected exposure to other biological agents ruled out; Z79.899 Other long term (current) drug therapy
CPT/HCPCS: 0241U; 36415; 80053; 81001; 81025; 83735; 84702; 85025; 96360; 99283; 99284

== ENCOUNTER 2024-02-05 17:28 | Outpatient (AMB) | payer OTHER, SELFPAY ==
[2024-02-05 17:32] VITALS: BP 108/62; BMI 27.9
--- NOTE | 2024-02-05 17:32 | A.OFFPC_ITS ---
Vital Signs 02/05/24 17:32 Height 5 ft 7 in Weight 178 lb BMI 27.9 BP 108/62 Blood Pressure Location Lt brachial Position Sitting Intake Visit Reasons: OVERDUE ANNUAL PE Intake Note: Patient here for an annual physical exam Reliability Engineer Required: No Accompanied by: Self / Same As Patient Allergies ciprofloxacin [From CIPRO] Allergy (Intermediate, Verified 02/05/24 17:38) TACHYCARDIA Sulfa (Sulfonamide Antibiotics) Allergy (Intermediate, Verified 02/05/24 17:38) shortness of breath sulfamethoxazole [From Bactrim] Allergy (Verified 02/05/24 17:38) Unknown trimethoprim [From Bactrim] Allergy (Verified 02/05/24 17:38) Unknown fish/shellfish Allergy (Severe, Uncoded 02/05/24 17:38) anaphylaxis SEAFOOD Allergy (Severe, Uncoded 02/05/24 17:38) ANAPHALXYS Medication List - Last Reconciled 02/05/24 by Nory Montanez MD PNV cmb#95-ferrous fumarate-FA 28 mg iron- 800 mcg () 1 tab PO QAM pyridoxine (vitamin B6) 25 mg PO TID PRN Tobacco use date assessed: 02/05/24 Dental Screening Dental Screen Date: 02/05/24 Did you have a dental visit in the last 12 months?: Yes Did you have a dental problem in the last 6 months where you did not have access to dental care?: No Was dental information given to patient?: Patient has dentist HPI HPI Comments History of Present Illness Details This is a 28-year-old female that is 16 weeks that comes for her physical exam. No acute complaints. Pap smear done May 2023. No chest pain or shortness on breath. [facility] Medical History (Updated 02/05/24 @ 17:47 by Nory Montanez MD) Meniere's disease of right ear Mild major depression, single episode GERD (gastroesophageal reflux disease) Tachycardia Surgical History History of cholecystectomy Previous section History of appendectomy Family History Mother Arthritis Father No problems noted. Social History Household Members: Unknown / Unable to assess Housing: Apartment Do you presently have visiting nurse or other home services: No Unable to assess alcohol history related to: Unknown Alcohol intake: current Alcohol intake frequency: holidays/special occasions only Patient Tobacco Use Status: Former Tobacco user Tobacco use type: Cigarette e-Cigarette/Vaping Use: Never Used Second Hand Smoke Exposure: No service: No Current occupational status: employed Current occupational exposures/hazards: No Cognitive needs: No Hearing needs: No Vision needs: No Questionnaire PHQ-9 Over the last 2 weeks, how often have you been bothered by any of the following problems? 1. Little interest or pleasure in doing things: not at all 2. Feeling down, depressed, or hopeless: not at all 3. Trouble falling or staying asleep, or sleeping too much: not at all 4. Feeling tired or having little energy: not at all 5. Poor appetite or overeating: not at all 6. Feeling bad about yourself - or that you are a failure or have let yourself or your family down: not at all 7. Trouble concentrating on things, such as reading the newspaper or watching television: not at all 8. Moving or speaking so slowly that other people could have noticed. Or the opposite - being so fidgety or restless that you have been moving around a lot more than usual: not at all 9. Thoughts that you would be better off or of hurting yourself in some way: not at all Total score: 0 Depression Screening Interpretation: Negative Depression Screening Done: Yes [id number] - PHQ-9 Billing: Yes Source: Developed by Drs. Alexander Rudolph, Shilpi Haywood, Aleksander Arreola and colleagues, with an educational mabel from [employer]. Thrive Questionnaire Date Thrive assessed: 02/05/24 I am a: Patient What is your living situation today?: I have a steady place to live Within the past 12 months, did the food you bought not last and you didn't have the money to get more?: Never true Within the past 12 months, did you worry whether your food would run out before you got money to buy more?: Never true Do you have trouble paying for medicines?: No Do you have trouble getting transportation to medical appointments?: No Do you have trouble paying your heating and electricity bill?: No Do you have trouble taking care of your child, family member or friend?: No Do you have trouble with day-to-day activities such as bathing, preparing meals, shopping, managing finances, etc.?: No Are you currently unemployed and looking for a job?: No Are you interested in more education?: No Please select the resources that you would like help with: None Currently or been in a relationship where the following occur: No concerns reported THRIVE Score: 0 AUDIT C Alcohol Use Questionnaire (AUDIT-C) 1. How often do you have a drink containing alcohol?: Never Total Score: 0 Score Reviewed/Action Taken: No CARLOS-7 AMB Questionnaire CARLOS-7 Date CARLOS - 7 assessed: 02/05/24 Feeling nervous, anxious, or on edge: 0 = Not at all Not being able to stop or control worryin = Not at all Worrying too much about different things: 0 = Not at all Trouble relaxin = Not at all Being so restless that it is hard to sit still: 0 = Not at all Becoming easily annoyed or irritable: 0 = Not at all Feeling afraid as if something awful might happen: 0 = Not at all Total CARLOS-7 score (0-4 normal; 5-9 mild; 10-14 moderate; 15-21 severe): 0 Source: Developed by Drs. Alexander Rudolph, Shilpi Haywood, Aleksander Arreola and colleagues, with an educational mabel from [employer]. Review of Systems Const All systems reviewed & are unremarkable except as noted in HPI and below Card Denies chest pain at rest, Denies chest pain with activity, Denies edema, Denies irregular heart rhythm, Denies claudication, Denies dyspnea, Denies dyspnea on exertion, Denies orthopnea, Denies paroxysmal nocturnal dyspnea and Denies slow heart rate Resp Denies cough, Denies dyspnea and Denies dyspnea on exertion GI Denies abdominal pain, Denies change in bowel habits, Denies excessive flatus, Denies nausea and Denies vomiting Denies urinary incontinence, Denies urinary hesitancy and Denies urinary urgency Musc Denies abnormal gait, Denies atrophy, Denies deformity and Denies limited range of motion Skin/Breast Denies bleeding lesions, Denies changing lesions and Denies rash Neuro Denies abnormal gait, Denies behavioral changes and Denies lack of coordination Psych Denies behavioral changes Physical exam (Primary Care) Vital Signs: Last Vital Signs BP 108/62 02/05/24 17:32 BMI result Body Mass Index 27.9 Tobacco/Smoking Status: Tobacco use Status Tobacco use date assessed 01/10/22 01/10/22 10:16 Patient Tobacco Use Status Former Tobacco user 01/10/22 10:16 Tobacco use type Cigarette 01/10/22 10:16 e-Cigarette/Vaping Use Never Used 01/10/22 10:16 Depression Screening Interpretation: Negative Thrive Assessment: Date of Thrive Assessment Date Thrive assessed 01/10/22 01/10/22 10:16 Currently or been in a relationship where the following occur: No concerns reported [facility] Head: Yes normal to inspection, Yes normocephalic and Yes atraumatic Ears: external ears normal Eyes General: appearance normal, both eyes and all related structures Eyelids: Yes eyelids normal Conjunctivae: conjunctivae normal Neck Neck: Yes normal visual inspection and Yes supple Resp Effort & Inspection: normal respiratory effort Auscultation: clear to auscultation bilaterally Cardio Jugular venous distension: no JVD Rate: regular rate Rhythm: regular rhythm Heart sounds: S1 normal heart sound present and S2 normal heart sound present GI Inspection: Yes normal to inspection Palpation (GI): Soft to palpation and nontender Auscultation: normal bowel sounds Skin General skin exam: no rashes or lesions noted Neuro General: no focal motor deficits Extrem General: Yes full ROM Psych Appearance: grossly normal Assessment and Plan Assessment & Plan (1) Physical exam: Code(s): Z00.00 - Encounter for general adult medical examination without abnormal findings Plan: Repeat in a year. Coding Level of Care Code Est Pt Prev Care 18-39y(84339) Diagnoses Physical exam Z00.00 Time Spent (min) 30
== END 2024-02-05 17:45 | disposition home or self-care (01) ==
PROVIDERS: PCP Internal Medicine; Visit Provider Internal Medicine
DX: Z00.00 Encounter for general adult medical examination without abnormal findings (principal)
CPT/HCPCS: 99395

== ENCOUNTER 2024-08-09 10:28 | Outpatient (REF) | payer OTHER, BC, SELFPAY ==
[2024-08-09 11:47] LABS: Influenza A PCR POSITIVE (Negative); Influenza B PCR NEGATIVE (Negative); Resp Syncy Virus RNA Qual PCR NEGATIVE (Negative); SARS COV2 PCR INHOUSE NEGATIVE (Negative)
== END 2024-08-09 10:29 | disposition home or self-care (01) ==
LOC: HO.LAB 10:28
PROVIDERS: PCP Internal Medicine; Visit Provider Internal Medicine
DX: R09.89 Other specified symptoms and signs involving the circulatory and respiratory systems (principal)
CPT/HCPCS: 0241U

== ENCOUNTER 2025-03-11 12:43 | Outpatient (REF) | payer BC, SELFPAY ==
[2025-03-11 13:21] LABS: Appearance Urine Clear; Glucose Urine UA Negative (Negative); PH 6.0 (5.0-9.0); Specific Gravity - Urine 1.025 (1.005-1.025)
--- OUTSIDE RECORDS SUMMARY | 2025-03-11 16:10 | XMS_ITS | Clinical Summary ---
Author Organization [facility] Address [address] [place] [address] Phone Care Team Providers Care Skin Washer Name Role Phone Janet Payne Primary Care Provider [phone] Allergies Active Allergy Reactions Criticality Noted Date Comments Sulfamethoxazole-Trimethoprim Shortness Of Breath High 10/21/2020 Medications phenazopyridine (PYRIDIUM) 100 MG tablet Take 1 tablet (100 mg total) by mouth 3 (three) times a day as needed for pain (specific location in comments). 10 tablet Active Additional Information Patient not taking.Reported on 11/28/2023 Active Problems No known active problems Immunizations Immunization Administration Dates Next Due Hepatitis B Adult 03/20/2022,02/10/2022 Social History Tobacco Use Types Packs/Day Years Used Date Smoking Tobacco: Former Cigarettes Smokeless Tobacco: Never Tobacco Cessation:Counseling Given: Not Answered Education Answer Date Recorded Are you interested in more education? Not on glendy e 10/21/2022 Are you concerned about learning? Not on file 10/21/2022 No 10/21/2022 No 10/21/2022 Digital Access Answer Date Recorded No 11/18/2022 No 11/18/2022 Reliable internet access at home? Not on file 11/18/2022 Device with a working camera? Not on file Comments Unknown Sex and Gender Information Value Date Recorded Sex Assigned at Not on file Legal Sex Female 3:16 PM EDT Gender Identity Not on file Sexual Orientation Not on file Last Filed Vital Signs Vital Sign Reading Time Taken Comments Blood Pressure 105/70 11/28/2023 12:09 PM EDT Pulse 75 11/28/2023 12:09 PM EDT Temperature 36.8 C (98.2 F) 11/28/2023 12:09 PM EDT Respiratory Rate 18 11/28/2023 12:09 PM EDT Oxygen Saturation 99% 11/28/2023 12:09 PM EDT Inhaled Oxygen Concentration - - Weight 75.8 kg (167 lb) 11/28/2023 12:09 PM EDT Height 170.2 cm (5' 7 ) 10/21/2020 3:59 PM EDT Body Mass Index 26.16 10/21/2020 3:59 PM EDT Plan of Treatment Health Maintenance Due Date Last Done Comments Adult Td,Tdap Booster 1997 DEPRESSION SCREENING 2009 SMOKING Hx and SMOKELESS TOB ACCO SCREENING 2010 PAP SMEAR 2018 INFLUENZA VACCINE (#1) 2025 COVID-19 VACCINE ( - 2023-2 5 season) 2025 HEPATITIS C SCREENING Completed 10/21/2020 HIV ONE-TIME SCREENING (18-6 5 YEARS) Completed 10/21/2020 HEPATITIS A VACCINES Aged Out No long er eligible based on patient's age to complete this topic HIB VACCINES Aged Out No longer eligi ble based on patient's age to complete this topic MENINGOCOCCAL VACCINES (ACWY) Aged Out No longer eligible based on patient's age to complete this topic MENINGOCOCCAL VACCINES (B) Aged Out N o longer eligible based on patient's age to complete this topic PNEUMOCOCCAL VACCINES (0-49 years) Aged Out No longer eligible based on patient's age to complete this topic Medical Devices Not on file Procedures Procedure Name Priority Date/Time Associated Diagnosis Comments HEPATITIS C ANTIBODY, QUALITATIVE Routine 10/21/2020 4:44 PM EDT Exposure to blood or body fluid from Last 3 Months or Most Recently Relevant to Health Maintenance Results * Hepatitis C antibody, qualitative (10/21/2020 4:44 PM EDT) HCV NON-REACTIV E NON-REACTI VE [facility] Blood 10/21/2020 4:44 PM EDT 10/21/2020 4:47 PM EDT us Shireen Thomas PA-C LAB BLOOD ORDERABLES Final R esult [facility] [address] [place] [address] from Last 3 Months or Most Recently Relevant to Health Maintenance Insurance [facility] ACO [facility] [employer] Care Teams Skin Washer Relationship Specialty Start Date End Date Janet Payne PA PCP - General Unknown Provider Specialty 10/21/20 Additional Source Comments The information contained in this document represents components of the legal health record. It is not the complete legal health record.[facility]
== END 2025-03-11 12:44 | disposition home or self-care (01) ==
LOC: HO.LAB 12:43
PROVIDERS: PCP Internal Medicine; Visit Provider Internal Medicine
DX: R39.9 Unspecified symptoms and signs involving the genitourinary system (principal)
CPT/HCPCS: 81003

== ENCOUNTER 2025-06-08 11:10 | Outpatient (REF) | payer BC, SELFPAY ==
[2025-06-08 12:52] LABS: Appearance Urine Cloudy; Glucose Urine UA Negative (Negative); PH 6.0 (5.0-9.0); Specific Gravity - Urine 1.010 (1.005-1.025); UMIC TRIGGER UACC YES
[2025-06-08 13:07] LABS: UACC Culture Trigger YES
== END 2025-06-08 11:11 | disposition home or self-care (01) ==
LOC: HO.LAB 11:10
PROVIDERS: PCP Internal Medicine; Visit Provider Internal Medicine
DX: R39.9 Unspecified symptoms and signs involving the genitourinary system (principal)
CPT/HCPCS: 81001; 87086